=== PATIENT | male | born 1975 | race African-American/Black ===

== ENCOUNTER 2016-07-26 09:14 | Inpatient (IN) | payer OTHER ==
[~2016-07-26] VITALS: Ht 188 cm; Wt 89.8 kg
[~2016-07-26 09:14] MED LIST: ALDA25TA2 PO; FOLI1TAB2 PO; FOLIC ACID 1MG/0.2ML VIAL SC SCH; FURO20TA2 PO; HYDR25T PO; KEFL500C7 PO; LACT20EL PO; MAG400TA PO; NADO20TA PO; NICO21PAT TD; NICOTINE 7 MG/24 HR TRANSDERMAL TD SCH; OMEP20CA3 PO; PANT40TA2 PO; PERCOCET PO; PHYT5TA PO; POTA10CA PO; SUCR1SS PO; THIA100TA PO; THIAMINE HCL 200 MG/2 ML VIAL (J3411) IV SCH; Thiamine Hcl PO; VITA-122 PO; VITA10002 PO; VITA500T53 PO; VITMTA PO; XANA0.5T PO; XIFA550T PO
[2016-07-26] MEDS ORDERED: MORPHINE 4 MG/ML 1ML SYRINGE As Ordered ONE (09:29)
[2016-07-26] MEDS ORDERED: PANTOPRAZOLE 40MG INJ (PROTONIX) (C9113) As Ordered ONE ×3 (09:29→15:38)
[2016-07-26] MEDS ORDERED: ONDANSETRON 4MG/2ML VIAL (J2405) As Ordered ONE (09:30)
[2016-07-26 09:52] LABS: INR 1.79
[2016-07-26 09:54] LABS: BASO % 0.3 % (0.0-1.0); EOS # 0.3 K/mm3 (0.0-0.50); EOS % 5.4 % (0.0-3.0); LARGE UNSTAINED CELL # 0.1 K/mm3 (0.0-0.4); LARGE UNSTAINED CELL % 2.5 % (0.0-4.0); LYMPH # 1.8 K/mm3 (1.5-4.5); MEAN CORPUSCULAR HEMOGLOBIN 33.3 pg (27.0-33.0); MEAN CORPUSCULAR VOLUME 97.8 fl (80.0-96.0); MONO # 0.2 K/mm3 (0.0-0.8); MONO % 4.1 % (0.0-5.0); NEUTROPHILS # 2.9 K/mm3 (1.8-7.7); NEUTROPHILS % 53.7 % (36.0-66.0); RED CELL DISTRIBUTION WIDTH 15.5 % (11.5-14.5); WHITE BLOOD COUNT 5.4 K/mm3 (4.0-10.0)
[2016-07-26 09:55] LABS: PLATELET COUNT, AUTOMATED 41 k/mm3 (150-450)
[2016-07-26 10:29] LABS: ALBUMIN/GLOBULIN RATIO 0.64 (1.00-1.93); ALKALINE PHOSPHATASE 171 U/L (45-117); ALT/SGPT 63 U/L (12-78); ANION GAP 9 MEQ/L (8-16); AST/SGOT 137 U/L (15-37); BILIRUBIN,TOTAL 2.3 MG/DL (0.2-1.0); BLOOD UREA NITROGEN 7 MG/DL (7-18); CALCIUM LEVEL 8.3 MG/DL (8.5-10.1); CARBON DIOXIDE LEVEL 28 MEQ/L (21-32); CHLORIDE LEVEL 107 MEQ/L (98-107); CREATININE FOR GFR 0.72 MG/DL (0.70-1.30); GLOMERULAR FILTRATION RATE > 60.0 (>60); GLUCOSE, FASTING 101 MG/DL (70-105); POTASSIUM SERUM 3.9 MEQ/L (3.5-5.1); SODIUM LEVEL 144 MEQ/L (136-145); TOTAL PROTEIN 7.7 GM/DL (6.4-8.2)
[2016-07-26] MEDS ORDERED: ISOVUE-370 76% 100ML VIAL (Q9967) As Ordered ONE (10:48)
[2016-07-26] MEDS ORDERED: HYDROmorphone HCL 1 MG/ML SYRINGE (J1170) As Ordered ONE ×2 (11:05→13:57)
--- NOTE | 2016-07-26 11:29 | REP ---
Clinical: Generalized abdominal pain. Comparison: 06/18/2016. Technique: Axial contrast enhanced images from the lung bases to the pubic symphysis using 100 ml Isovue 370 intravenous contrast material with coronal and sagittal re-formations. Findings: Lung bases demonstrate minimal right basilar atelectasis. Continued stable evidence for cirrhosis and portal venous hypertension including hepatosplenomegaly, recanalized umbilical vein, diffuse varices and portosystemic shunting. Distended gallbladder with gallbladder wall thickening is also identified and unchanged compared to 06/18/2016 - likely a product of chronic cirrhosis. The enteric system is without obstruction or obvious acute inflammatory process. Normal appendix identified in the right lower quadrant. Scattered colonic diverticula noted without acute diverticulitis. Pelvis demonstrates normal bladder and age appropriate prostate/seminal vesicles. No free air or ascites. No significant adenopathy. Abdominal aorta without aneurysm or dissection. Surrounding musculoskeletal structures are intact without focal abnormality. Impression: 1. Continued evidence for cirrhosis and portal venous hypertension including hepatosplenomegaly. Distended gallbladder with gallbladder wall thickening is likely chronic and again related to cirrhosis. 2. No free fluid and no obvious new acute intra-abdominal or pelvic pathology appreciated. 3. Trace right basilar atelectasis. Signed by Gt Villar MD 07/26/2016 11:20 A
[2016-07-26] MEDS ORDERED: SPIR50TA2 PO (12:47)
[2016-07-26] MEDS ORDERED: VITA10002 PO (12:47)
[2016-07-26] MEDS ORDERED: LACT10SO29 PO (12:47)
[2016-07-26] MEDS ORDERED: POTA10CA PO (12:47)
[2016-07-26] MEDS ORDERED: MAGN400T5 PO (12:47)
[2016-07-26] MEDS ORDERED: FOLI1TAB2 PO (12:47)
[2016-07-26] MEDS ORDERED: LASI20TA PO (12:47)
[2016-07-26] MEDS ORDERED: THIA100T PO (12:47)
[2016-07-26] MEDS ORDERED: HYDR25T PO (12:47)
[2016-07-26] MEDS ORDERED: PROP1TAB29 PO (12:47)
[2016-07-26] MEDS ORDERED: PHYTONADIONE 10MG/ML INJECTION (J3430) SC ONE (13:00)
[2016-07-26] MEDS ORDERED: OCTREOTIDE ACETATE 50 MCG/ML VIAL (J2354) IV ONE (13:00)
[2016-07-26] MEDS ORDERED: PANTOPRAZOLE 40MG INJ (PROTONIX) (C9113) IV ONE (13:00)
[2016-07-26] MEDS ORDERED: PHYTONADIONE 10MG/ML INJECTION (J3430) As Ordered ONE (13:56)
[2016-07-26] MEDS ORDERED: FOLIC ACID 1MG/0.2ML VIAL As Ordered ONE (13:56)
[2016-07-26] MEDS ORDERED: CIPROFLOXACIN/D5W 400 MG/200 ML BAG (J0744) As Ordered ONE (13:57)
[2016-07-26] MEDS ORDERED: LACTULOSE 20 GM/30 ML SYRUP UD As Ordered ONE (13:57)
[2016-07-26] MEDS ORDERED: THIAMINE HCL 200 MG/2 ML VIAL (J3411) As Ordered ONE (13:57)
[2016-07-26] MEDS ORDERED: SUCRALFATE 1 GM TAB As Ordered ONE (13:57)
[2016-07-26 17:29] LABS: INR 1.9
[2016-07-26] MEDS ORDERED: LIDOCAINE 2% INJ 100 MG/5 ML SDV (FOR ANES.) As Ordered ONE (18:31)
[2016-07-26] MEDS ORDERED: PROPOFOL 500 MG/50 ML VIAL As Ordered ONE (18:31)
--- NOTE | 2016-07-26 18:44 | ROOR ---
Patient Name: Escobar Lara Procedure Date: 07/26/2016 5:45 PM Date of : 1975 Age: 41 Room: Main OR Gender: Male Note Status: Finalized Procedure: Upper GI endoscopy Indications: Hematemesis, Cirrhosis rule out esophageal varices, Hepatitis with suspected esophageal varices, Portal hypertension with suspected esophageal varices Providers: Dyllan JEAN MD Referring MD: Darcie Cai MD Requesting Provider: Medicines: Monitored Anesthesia Care Complications: No immediate complications. Procedure: Pre-Anesthesia Assessment: - The heart rate, respiratory rate, oxygen saturations, blood pressure, adequacy of pulmonary ventilation, and response to care were monitored throughout the procedure. The Endoscope was introduced through the mouth, and advanced to the second part of duodenum. The upper GI endoscopy was accomplished without difficulty. The patient tolerated the procedure well. Findings: Non-bleeding small (< 5 mm) varices were found in the lower third of the esophagus,. They were diminutive in size. No stigmata of recent bleeding were evident and no red ricky signs were present. Moderately severe esophagitis was found at the gastroesophageal junction. Candidiasis was found in the entire esophagus. Mild portal hypertensive gastropathy was found in the gastric body. This was biopsied with a cold forceps for histology. The examined duodenum was normal. Impression: - Non-bleeding small (< 5 mm) esophageal varices. (No/doubuious significance-no therapy necessary) - Moderately severe reflux esophagitis. - Monilial esophagitis. - Portal hypertensive gastropathy. Biopsied. - Stomach otherwise normal. (no gastric varices seen) - Normal examined duodenum. - (Fluid is clear-free of coffee grounds/blood) Recommendation: - Use Protonix (pantoprazole) 40 mg PO daily indefinitely. - Nystatin suspension 100,000 units PO QID for 10 days. - Clear liquid diet today. - Advance diet as tolerated - advance as tolerated to resume previous diet. Dyllan Jean MD Dyllan JEAN MD 07/26/2016 6:43:52 PM This report has been signed electronically. Number of Addenda: 0 Note Initiated On: 07/26/2016 5:45 PM Estimated Blood Loss: Estimated blood loss: none.
--- NOTE | 2016-07-26 18:49 | EDDOCDS ---
Nurse's Notes [facility] Name: Escobar Lara Age: 41 yrs Sex: Male : 1975 Arrival Date: 07/26/2016 Time: 09:14 Bed Admit Hold Private MD: Florence Cai J Diagnosis: Hematemesis-hx of grade I varices;Liver disease, unspecified Presentation: 07/26 09:18 Presenting complaint: Patient states: threw up 3 times and there was blood. also used srm the bathroom and there was blood infused with the diarrhea. my whole abdomen hurts. symptoms started at 530. Adult Sepsis Screening: The patient does not have new or worsening altered mentation. Systolic blood pressure is greater than 100. Patient has a qSOFA score of 0- Negative Sepsis Screen. Suicide/Homicide risk assessment- the patient denies having any suicidal and/or homicidal ideations and does not present with any other emotional, behavioral or mental health complaints. Status: Patient is not a telegraphic service dispatcher or dependent. Transition of care: patient was not received from another setting of care. 09:18 Acuity: LINSEY Level 3 [facility] 09:18 Method Of Arrival: Walkin/Carried/Asstd [facility] Triage Assessment: 09:21 General: Appears in no apparent distress, Behavior is appropriate for age, cooperative. srm Pain: Pain currently is 10 out of 10 on a pain scale. HIV screening NA for this visit Offered previously. Historical: - Allergies: no known allergies; - Home Meds: 1. Atarax Oral 25 mg daily 2. folic acid 1 mg Oral tab 1 tab once daily 3. lactulose 10 gram/15 mL (15 mL) Oral soln 15 mL once daily for (picked up med but has not started yet) 4. Lasix 20 mg Oral tab 1 tab once daily 5. magnesium oxide 400 mg Oral tab 800 mg daily 6. potassium chloride 10 mEq Oral cpER 1 cap once daily 7. vitamin b12 daily - PMHx: Cirrhosis; Hep C; esophageal varices; - PSHx: none; Endoscopy, Lower; Colonoscopy; - Social history: Smoking status: Patient uses tobacco products, current every day smoker. No barriers to communication noted, The patient speaks fluent Indonesian, Speaks appropriately for age. - Family history: Not pertinent. - : The pt / caregiver states he / she is not on anticoagulants. Home medication list is obtained from the patient. - Exposure Risk Screening:: None identified. Screenin:37 Screening information is obtained from the patient. Fall risk: No risks identified. ck1 Assistance ADL's: requires no assistance with activities of daily living. Abuse/DV Screen: The patient / caregiver reports he/she is: not in a situation that causes fear, pain or injury. Nutritional screening: No deficits noted. Advance Directives: There is an active DNR order but there is no copy available at this time. home support is adequate. Assessment: 09:38 General: Appears in no apparent distress, comfortable, Behavior is appropriate for age, ck1 cooperative. Pain: Location: abdomen Pain currently is 10 out of 10 on a pain scale. Quality of pain is described as stabbing. Neurological: Level of Consciousness is awake, alert, obeys commands, Oriented to person, place, time. Respiratory: Respiratory effort is unlabored, Respiratory pattern is regular, symmetrical. GI: Reports diarrhea, nausea, vomiting. Derm: Skin is pink, warm & dry. 09:42 GI: Abdomen is non- distended Bowel sounds present X 4 quads. Abd is soft X 4 quads Abd srm is tender to palpation X 4 quads. 10:59 General: Appears in no apparent distress, comfortable, Behavior is appropriate for age, ck1 cooperative. Pain: Location: abdomen Pain currently is 10 out of 10 on a pain scale. Neurological: No deficits noted. GI: Denies nausea, vomiting. Derm: Skin is pink, warm & dry. Musculoskeletal: Circulation, motion, and sensation intact Range of motion intact in all extremities. 12:00 General: Appears in no apparent distress, comfortable, Behavior is appropriate for age, ck1 cooperative. Pain: Noted to be resting quietly on stretcher. Neurological: Level of Consciousness is awake, alert, obeys commands, Oriented to person, place, time. Respiratory: Respiratory effort is unlabored, Respiratory pattern is regular, symmetrical. GI: Denies nausea, vomiting. Derm: Skin is pink, warm & dry. 12:50 Reassessment: Patient appears in no apparent distress at this time. resting quietly on ck1 stretcher. Denies NVD. Awaiting admission process. Call light in reach, will continue to monitor patient. 13:50 General: Appears in no apparent distress, comfortable, Behavior is appropriate for age, ck1 cooperative. Pain: Location: abdomen Pain currently is 9 out of 10 on a pain scale. Neurological: Level of Consciousness is awake, alert, obeys commands, Oriented to person, place, time. Respiratory: No deficits noted. GI: Denies nausea, vomiting. Derm: Skin is pink, warm & dry. Musculoskeletal: Circulation, motion, and sensation intact Range of motion intact in all extremities. 14:50 Reassessment: Patient appears in no apparent distress at this time. ck1 15:50 General: Appears in no apparent distress, comfortable, Behavior is appropriate for age, ck1 cooperative. Pain: Location: abdomen Pain currently is 9 out of 10 on a pain scale. Neurological: Level of Consciousness is awake, alert, obeys commands, Oriented to person, place, time. Respiratory: Respiratory effort is unlabored, Respiratory pattern is regular, symmetrical. GI: Denies nausea, vomiting. Derm: Skin is pink, warm & dry. 16:40 General: Patient is resting quietly on stretcher listening to music via cell phone, no ck1 acute distress noted at this time. Requesting drink/food. States pain 10/10. patient informed of NPO status. Verbalized understanding. 17:25 General: Appears in no apparent distress, comfortable, Behavior is appropriate for age, ead cooperative. Neurological: Level of Consciousness is awake, alert, obeys commands, Oriented to person, place, time. Respiratory: Respiratory effort is even, unlabored. GI: Denies nausea, vomiting. Derm: Skin is pink, warm & dry. 17:32 General: pt to OR. Pt to be returned to room 18 in ED post scope.. ead Vital Signs: 09:17 BP 161 / 85; Pulse 101; Resp 18; Temp 98.1(O); Pulse Ox 97% ; Weight 89.81 kg; Height 6 cmb ft. 2 in. (187.96 cm); Pain 10/10; 10:12 BP 144 / 93; Pulse 91; Resp 18; Pulse Ox 95% on R/A; Pain 9/10; srm 11:38 BP 137 / 79 RA Sitting (auto/reg); Pulse 86; Resp 16; Pulse Ox 96% on R/A; Pain 9/10; jrd 11:40 Pain 9/10; ck1 14:58 BP 134 / 78 RA Supine (auto/reg); Pulse 86; Resp 16; Pulse Ox 94% on R/A; Pain 9/10; jrd 16:32 BP 137 / 71 RA Sitting (auto/reg); Pulse 81; Resp 16; Temp 97.7; Pulse Ox 93% on R/A; jrd Pain 10/10; 17:01 BP 136 / 85 (auto/); ead 17:01 Pulse 62 MON; Resp 16; Temp 99.6(TE); Pulse Ox 93% on R/A; ead 09:17 Body Mass Index 25.42 (89.81 kg, 187.96 cm) cmb Vitals: 09:17 Log In Time: July 26, 2016 at 09:14. cmb ED Course: 09:16 Patient visited by Betsy Oliveira. cmb 09:16 Florence Cai is Private Physician. cmb 09:16 Patient moved to Waiting cmb 09:17 Patient moved to Pre RCE cmb 09:19 Triage Initiated srm 09:22 Deandre Bonilla PA-C is PHCP. cc10 09:22 Yulisa Bonner MD is Attending Physician. cc10 09:22 Patient visited by Deandre Bonilla PA-C. cc10 09:22 Patient visited by Deandre Bonilla PA-C. cc10 09:22 Patient moved to Triage 2 srm 09:27 Patient moved to I2 / M2 ck1 09:37 The patient / caregiver is instructed regarding the plan of care and ED course. ck1 09:37 Inserted saline lock: 20 gauge in left forearm and blood collected. The patient ck1 tolerated the procedure well. 09:38 Basic Metabolic Profile Sent. ck1 09:38 CBC with Diff Sent. ck1 09:38 Lipase Sent. ck1 09:38 Liver Profile Sent. ck1 09:38 Partial Thromboplastin Time Sent. ck1 09:38 Prothrombin Time Profile\E\INR Sent. ck1 09:38 Type & Screen Sent. ck1 09:42 Patient visited by Steffi Alford RN. srm 09:51 Patient visited by Steffi Alford RN. srm 09:59 [facility] Payment Agreement was scanned into [employer] and attached to record. mm15 10:13 Patient visited by Steffi Alford RN. srm 10:51 Patient visited by Marge Camcaho,DANIEL. ck1 10:[address] ck1 10:59 Patient moved to I2 / M2 ck1 11:03 Urinalysis Sent. ck1 11:08 Patient visited by Marge Camacho,DANIEL. ck1 11:39 Patient visited by Lacho Da Silva PCA. jrd 12:14 Darcie Cai is Hospitalizing Provider. cc10 12:19 CT ABD & PELVIS: IV Contrast Only Returned. EDMS 12:[address] loo. srm 13:47 Inserted saline lock: 20 gauge in right hand The patient tolerated the procedure well. ck1 14:58 Patient visited by Lacho Da Silva PCA. jrd 15:08 T-Sheet-- Draft Copy was scanned into [employer] and attached to record. gb 16:33 Patient visited by Lacho Da Silva PCA. jrd 16:41 Ashlee Abbott RN is Primary Nurse. ck1 16:41 Patient moved to 18 ck1 17:08 Admission Orders was scanned into [employer] and attached to record. lbd 17:16 Patient moved to Admit Hold mcp 17:24 No procedures done that require assistance. ead Administered Medications: 09:36 Drug: NS 0.9% 1000 ml [sodium chloride 0.9 % intravenous solution] Route: IV; Rate: srm bolus; Site: left forearm; 09:36 Drug: Ondansetron 4 mg [ondansetron HCl 2 mg/mL intravenous solution (2 mL)] Route: srm IVP; Site: left forearm; 09:37 Drug: pantoprazole 40 mg [pantoprazole 40 mg intravenous solution] Route: IV; Rate: srm bolus; Site: left forearm; 09:39 Drug: morphine 4 mg [morphine 4 mg/mL intravenous cartridge (1 mL)] Route: IVP; Site: srm left forearm; 10:13 Follow up: pt sleeping on stretcher-= arouses easily. states pain 9.5/10 PA aware srm 11:08 Drug: Dilaudid - HYDROmorphone 0.5 mg [hydromorphone 1 mg/mL injection syringe (0.5 ck1 mL)] Route: IVP; Site: left forearm; 11:40 Follow up: Pain 9/10 Adult; Response: Confirmed pt not driving.; No Adverse Reaction; ck1 Pain is decreased Intake: Order Results: Lab Order: Basic Metabolic Profile; SPEC'M 07/26/16 09:35 Test: GLUCOSE, FASTING; Value: 101; Range: 70-105; Units: MG/DL; Status: F Test: BLOOD UREA NITROGEN; Value: 7; Range: 7-18; Units: MG/DL; Status: F Test: CREATININE FOR GFR; Value: 0.72; Range: 0.70-1.30; Units: MG/DL; Status: F Test: GLOMERULAR FILTRATION RATE; Value: > 60.0; Range: >60; Status: F Test: SODIUM LEVEL; Value: 144; Range: 136-145; Units: MEQ/L; Status: F Test: POTASSIUM SERUM; Value: 3.9; Range: 3.5-5.1; Units: MEQ/L; Status: F Test: CHLORIDE LEVEL; Value: 107; Range: 98-107; Units: MEQ/L; Status: F Test: CARBON DIOXIDE LEVEL; Value: 28; Range: 21-32; Units: MEQ/L; Status: F Test: ANION GAP; Value: 9; Range: 8-16; Units: MEQ/L; Status: F Test: CALCIUM LEVEL; Value: 8.3; Range: 8.5-10.1; Abnormal: Below low normal; Units: MG/DL; Status: F Test Note: ; Units are mL/min/1.73 m2 Chronic Kidney Disease Staging per NKF: Stage I & II GFR >=60 Normal to Mildly Decreased Stage III GFR 30-59 Moderately Decreased Stage IV GFR 15-29 Severely Decreased Stage V GFR <15 Very Little GFR Left ESRD GFR <15 on WELL LOGGER Lab Order: CBC with Diff; SPEC'07/26/16 09:35 Test: WHITE BLOOD COUNT; Value: 5.4; Range: 4.0-10.0; Units: K/mm3; Status: F Test: RED BLOOD COUNT; Value: 4.12; Range: 4.30-6.10; Abnormal: Below low normal; Units: M/mm3; Status: F Test: HEMOGLOBIN; Value: 13.7; Range: 14.0-18.0; Abnormal: Below low normal; Units: g/dl; Status: F Test: HEMATOCRIT; Value: 40.3; Range: 42.0-52.0; Abnormal: Below low normal; Units: %; Status: F Test: MEAN CORPUSCULAR VOLUME; Value: 97.8; Range: 80.0-96.0; Abnormal: Above high normal; Units: fl; Status: F Test: MEAN CORPUSCULAR HEMOGLOBIN; Value: 33.3; Range: 27.0-33.0; Abnormal: Above high normal; Units: pg; Status: F Test: MEAN CORPUSCULAR HGB CONC; Value: 34.0; Range: 32.0-36.5; Units: g/dl; Status: F Test: RED CELL DISTRIBUTION WIDTH; Value: 15.5; Range: 11.5-14.5; Abnormal: Above high normal; Units: %; Status: F Test: PLATELET COUNT, AUTOMATED; Value: 41; Range: 150-450; Abnormal: Below low normal; Units: k/mm3; Status: F Test: NEUTROPHILS %; Value: 53.7; Range: 36.0-66.0; Units: %; Status: F Test: LYMPH %; Value: 34.0; Range: 24.0-44.0; Units: %; Status: F Test: MONO %; Value: 4.1; Range: 0.0-5.0; Units: %; Status: F Test: EOS %; Value: 5.4; Range: 0.0-3.0; Abnormal: Above high normal; Units: %; Status: F Test: BASO %; Value: 0.3; Range: 0.0-1.0; Units: %; Status: F Test: LARGE UNSTAINED CELL %; Value: 2.5; Range: 0.0-4.0; Units: %; Status: F Test: NEUTROPHILS #; Value: 2.9; Range: 1.8-7.7; Units: K/mm3; Status: F Test: LYMPH #; Value: 1.8; Range: 1.5-4.5; Units: K/mm3; Status: F Test: MONO #; Value: 0.2; Range: 0.0-0.8; Units: K/mm3; Status: F Test: EOS #; Value: 0.3; Range: 0.0-0.50; Units: K/mm3; Status: F Test: BASO #; Value: 0.0; Range: 0.0-0.2; Units: K/mm3; Status: F Test: LARGE UNSTAINED CELL #; Value: 0.1; Range: 0.0-0.4; Units: K/mm3; Status: F Test Note: ; Results are consistent with prvious results. Lab Order: Lipase; SPEC'07/26/16 09:35 Test: LIPASE; Value: 717; Range: 73-393; Abnormal: Above high normal; Units: U/L; Status: F Lab Order: Liver Profile; SPEC'07/26/16 09:35 Test: AST/SGOT; Value: 137; Range: 15-37; Abnormal: Above high normal; Units: U/L; Status: F Test: ALT/SGPT; Value: 63; Range: 12-78; Units: U/L; Status: F Test: ALKALINE PHOSPHATASE; Value: 171; Range: 45-117; Abnormal: Above high normal; Units: U/L; Status: F Test: BILIRUBIN,TOTAL; Value: 2.3; Range: 0.2-1.0; Abnormal: Above high normal; Units: MG/DL; Status: F Test: BILIRUBIN,DIRECT; Value: 1.0; Range: 0.0-0.2; Abnormal: Above high normal; Units: MG/DL; Status: F Test: TOTAL PROTEIN; Value: 7.7; Range: 6.4-8.2; Units: GM/DL; Status: F Test: ALBUMIN; Value: 3.0; Range: 3.2-5.2; Abnormal: Below low normal; Units: GM/DL; Status: F Test: ALBUMIN/GLOBULIN RATIO; Value: 0.64; Range: 1.00-1.93; Abnormal: Below low normal; Status: F Lab Order: Partial Thromboplastin Time; SPEC'07/26/16 09:35 Test: PARTIAL THROMBOPLASTIN TIME; Value: 35.1; Range: 26.6-37.1; Units: SECONDS; Status: F Lab Order: Prothrombin Time Profile\E\INR; SPEC'07/26/16 09:35 Test: PROTHROMBIN TIME; Value: 20.9; Range: 12.3-14.5; Abnormal: Above high normal; Units: SECONDS; Status: F Test: INR; Value: 1.79; Status: F Test Note: ; THERAPUTIC HUMAN INR VALUES INDICATIONS NORMAL RANGES PROPHYLAXIS/TREATMENT OF: VENOUS THROMBOSIS 2.0-3.0 PULMONARY EMBOLISM 2.0-3.0 PREVENTION OF SYSTEMIC EMBOLISM FROM: TISSUE HEART VALVES 2.0-3.0 ACUTE MYOCARDIAL INFARCTION 2.0-3.0 VALVULAR HEART DISEASE 2.0-3.0 ATRIAL FIBRILLATION 2.0-3.0 MECHANICAL VALVES(HIGH RISK) 2.5-3.5 RECURRENT MYOCARDIAL INFARCTION 2.5-3.5 Lab Order: Type & Screen; SPEC' 07/26/16 09:35 Test: BLOOD TYPE; Value: O NEG; Status: F Test: AB SCREEN (INDIRECT ZEKE)GEL; Value: NEGATIVE; Status: F Lab Order: Urinalysis; [facility] 07/26/16 11:01 Test: APPEARANCE, URINE; Value: CLEAR; Range: CLEAR; Status: F Test: COLOR, URINE; Value: YELLOW; Range: YELLOW; Status: F Test: PH,URINE; Value: 6.0; Range: 5.0-9.0; Units: UNITS; Status: F Test: SPECIFIC GRAVITY URINE AUTO; Value: 1.019; Range: 1.002-1.035; Status: F Test: PROTEIN, URINE AUTO; Value: NEGATIVE; Range: NEGATIVE; Units: mg/dL; Status: F Test: GLUCOSE, URINE (UA) AUTO; Value: NEGATIVE; Range: NEGATIVE; Units: mg/dL; Status: F Test: KETONE, URINE AUTO; Value: NEGATIVE; Range: NEGATIVE; Units: mg/dL; Status: F Test: UROBILINOGEN, URINE AUTO; Value: 2.0; Range: 0.0-2.0; Abnormal: Above high normal; Units: mg/dL; Status: F Test: BILIRUBIN, URINE AUTO; Value: NEGATIVE; Range: NEGATIVE; Status: F Test: NITRITE, URINE AUTO; Value: NEGATIVE; Range: NEGATIVE; Status: F Test: LEUKOCYTE ESTERASE, URINE AUTO; Value: NEGATIVE; Range: NEGATIVE; Status: F Test: BLOOD, URINE BLOOD; Value: 1+; Range: NEGATIVE; Abnormal: Above high normal; Status: F Test: WBC, URINE AUTO; Value: 0; Range: 0-3; Units: /HPF; Status: F Test: RBC, URINE AUTO; Value: 4; Range: 0-3; Abnormal: Above high normal; Units: /HPF; Status: F Test: BACTERIA, URINE AUTO; Value: NEGATIVE; Range: NEGATIVE; Status: F Test: SQUAMOUS EPITHELIAL CELL UR AU; Value: 0; Range: 0-6; Units: /HPF; Status: F Test: MUCUS, URINE; Value: SMALL; Range: NEGATIVE; Status: F Test: HYALINE CAST, URINE AUTO; Value: 0; Range: 0-1; Units: /LPF; Status: F Lab Order: AMMONIA; [facility] 07/26/16 17:15 Test: AMMONIA; Value: 45; Range: <32; Abnormal: Above high normal; Units: uMOL/L; Status: F Lab Order: HEMOGLOBIN; [facility] 07/26/16 17:15 Test: HEMOGLOBIN; Value: 12.9; Range: 14.0-18.0; Abnormal: Below low normal; Units: g/dl; Status: F Lab Order: PT & APTT; [facility] 07/26/16 17:15 Test: PROTHROMBIN TIME; Value: 21.9; Range: 12.3-14.5; Abnormal: Above high normal; Units: SECONDS; Status: F Test: INR; Value: 1.90; Status: F Test: PARTIAL THROMBOPLASTIN TIME; Value: 36.6; Range: 26.6-37.1; Units: SECONDS; Status: F Test Note: ; THERAPUTIC HUMAN INR VALUES INDICATIONS NORMAL RANGES PROPHYLAXIS/TREATMENT OF: VENOUS THROMBOSIS 2.0-3.0 PULMONARY EMBOLISM 2.0-3.0 PREVENTION OF SYSTEMIC EMBOLISM FROM: TISSUE HEART VALVES 2.0-3.0 ACUTE MYOCARDIAL INFARCTION 2.0-3.0 VALVULAR HEART DISEASE 2.0-3.0 ATRIAL FIBRILLATION 2.0-3.0 MECHANICAL VALVES(HIGH RISK) 2.5-3.5 RECURRENT MYOCARDIAL INFARCTION 2.5-3.5 Radiology Order: CT ABD & PELVIS: IV Contrast Only Test: CT ABD & PELVIS: IV Contrast Only REASON FOR EXAMINATION: Abdomen Pain; Clinical: Generalized abdominal pain.; ; Comparison: 06/18/2016.; ; Technique: Axial contrast enhanced images from the lung bases to the pubic; symphysis using 100 ml Isovue 370 intravenous contrast material with coronal and; sagittal re-formations.; ; Findings:; Lung bases demonstrate minimal right basilar atelectasis.; ; Continued stable evidence for cirrhosis and portal venous hypertension including; hepatosplenomegaly, recanalized umbilical vein, diffuse varices and portosystemic; shunting. Distended gallbladder with gallbladder wall thickening is also; identified and unchanged compared to 06/18/2016 - likely a product of chronic; cirrhosis. The enteric system is without obstruction or obvious acute; inflammatory process. Normal appendix identified in the right lower quadrant.; Scattered colonic diverticula noted without acute diverticulitis. Pelvis; demonstrates normal bladder and age appropriate prostate/seminal vesicles. No; free air or ascites. No significant adenopathy. Abdominal aorta without; aneurysm or dissection. Surrounding musculoskeletal structures are intact; without focal abnormality.; ; Impression:; 1. Continued evidence for cirrhosis and portal venous hypertension including; hepatosplenomegaly. Distended gallbladder with gallbladder wall thickening is; likely chronic and again related to cirrhosis.; 2. No free fluid and no obvious new acute intra-abdominal or pelvic pathology; appreciated.; 3. Trace right basilar atelectasis.; ; ; Signed by; tG Villar MD 07/26/2016 11:20 A; Outcome: 10:59 CT Study completed. ck1 12:15 Decision to Hospitalize by Provider. cc10 17:27 Discharge Assessment: Patient awake and alert. obeys commands, Oriented to person, ead place and time. patient administered narcotics - yes. Patient was admitted to the hospital or transferred to another facility. The following High Risk Discharge criteria are identified: None. Admitted to OR accompanied by nurse, accompanied by tech, via stretcher, on monitor, with chart. Condition: stable. Property :Personal belongings accompany Pt. 18:47 Patient left the ED. [facility] Signatures: Dispatcher [employer] EDMS Breanna López, Tray Checker Unit lbd Steffi Alford RN Leny Adams RN RN [facility] Taryn Naidu, Ghulam Reg cori Camacho,MargeRN RN ck1 Betsy Oliveira Marlynn mm15 Ashlee Abbott RN RN ead Deandre Bonilla, PA-C PA-C cc10 Avinash, Lacho, LEAD INFRASTRUCTURE ARCHITECT LEAD INFRASTRUCTURE ARCHITECT jrd Corrections: (The following items were deleted from the chart) 17:27 17:01 Pulse 62bpm; Monitor; ead ead MTDD
--- NOTE | 2016-07-26 18:49 | EDDOCDS ---
Physician Documentation [facility] Name: Escobar Lara Age: 41 yrs Sex: Male : 1975 Arrival Date: 07/26/2016 Time: 09:14 Bed Admit Hold Private MD: Florence Cai J Disposition: 07/26/16 12:15 Hospitalization ordered by Darcie Cai for Observation. Preliminary diagnosis are Hematemesis - hx of grade I varices, Liver disease, unspecified. - Bed requested for Admit. - Status is Observation. mcp - Condition is Stable. - Problem is new. - Symptoms have improved. Historical: - Allergies: no known allergies; - Home Meds: 1. Atarax Oral 25 mg daily 2. folic acid 1 mg Oral tab 1 tab once daily 3. lactulose 10 gram/15 mL (15 mL) Oral soln 15 mL once daily for (picked up med but has not started yet) 4. Lasix 20 mg Oral tab 1 tab once daily 5. magnesium oxide 400 mg Oral tab 800 mg daily 6. potassium chloride 10 mEq Oral cpER 1 cap once daily 7. vitamin b12 daily - PMHx: Cirrhosis; Hep C; esophageal varices; - PSHx: none; Endoscopy, Lower; Colonoscopy; - Social history: Smoking status: Patient uses tobacco products, current every day smoker. No barriers to communication noted, The patient speaks fluent Senegalese, Speaks appropriately for age. - Family history: Not pertinent. - : The pt / caregiver states he / she is not on anticoagulants. Home medication list is obtained from the patient. - Exposure Risk Screening:: None identified. Vital Signs: 07/26 09:17 BP 161 / 85; Pulse 101; Resp 18; Temp 98.1(O); Pulse Ox 97% ; Weight 89.81 kg / 198 cmb lbs; Height 6 ft. 2 in. (187.96 cm); Pain 10/10; 10:12 BP 144 / 93; Pulse 91; Resp 18; Pulse Ox 95% on R/A; Pain 9/10; srm 11:38 BP 137 / 79 RA Sitting (auto/reg); Pulse 86; Resp 16; Pulse Ox 96% on R/A; Pain 9/10; jrd 11:40 Pain 9/10; ck1 14:58 BP 134 / 78 RA Supine (auto/reg); Pulse 86; Resp 16; Pulse Ox 94% on R/A; Pain 9/10; jrd 16:32 BP 137 / 71 RA Sitting (auto/reg); Pulse 81; Resp 16; Temp 97.7; Pulse Ox 93% on R/A; jrd Pain 10/10; 17:01 BP 136 / 85 (auto/); ead 17:01 Pulse 62 MON; Resp 16; Temp 99.6(TE); Pulse Ox 93% on R/A; ead 09:17 Body Mass Index 25.42 (89.81 kg, 187.96 cm) cmb MDM: 09:25 NS 0.9% 1000 ml IV at bolus once ordered. cc10 09:25 Ondansetron 4 mg IVP once ordered. cc10 09:25 IV Saline Lock ordered. cc10 09:25 Undress patient appropriately for examination ordered. cc10 09:26 CT ABD & PELVIS: IV Contrast Only Ordered. EDMS 09:26 Basic Metabolic Profile Ordered. EDMS 09:26 CBC with Diff Ordered. EDMS 09:26 Lipase Ordered. EDMS 09:26 Liver Profile Ordered. EDMS 09:26 Partial Thromboplastin Time Ordered. EDMS 09:26 Prothrombin Time Profile\E\INR Ordered. EDMS 09:26 Urinalysis Ordered. EDMS 09:27 Type & Screen Ordered. EDMS 09:27 NOTHING BY MOUTH+DIET ordered. EDMS 09:27 morphine 4 mg IVP once ordered. cc10 09:28 pantoprazole 40 mg IV at bolus once ordered. cc10 09:53 Financial registration complete. mm15 09:59 [facility] Payment Agreement was scanned into UTIL[employer] and attached to record. mm15 11:02 Basic Metabolic Profile Reviewed. cc10 11:02 CBC with Diff Reviewed. cc10 11:02 Lipase Reviewed. cc10 11:02 Liver Profile Reviewed. cc10 11:02 Prothrombin Time Profile\E\INR Reviewed. cc10 11:02 Partial Thromboplastin Time Reviewed. cc10 11:02 Type & Screen Reviewed. cc10 11:04 Dilaudid - HYDROmorphone 0.5 mg IVP once ordered. cc10 12:06 Urinalysis Reviewed. cc10 12:13 BED REQUEST+ADM ordered. EDMS 12:14 NOTHING BY MOUTH+DIET ordered. EDMS 12:16 AMMONIA Ordered. EDMS 12:29 Admission / Observation Status ordered. EDMS 12:29 NPO DIET ordered. EDMS 12:30 HEMOGLOBIN Ordered. EDMS 12:30 HEMOGLOBIN Ordered. EDMS 12:30 PT & APTT Ordered. EDMS 15:08 T-Sheet-- Draft Copy was scanned into [employer] and attached to record. gb 17:08 Admission Orders was scanned into [employer] and attached to record. lbd 18:42 PATHOLOGY REQUEST FOR SERVICE Ordered. EDMS Administered Medications: 09:36 Drug: NS 0.9% 1000 ml [sodium chloride 0.9 % intravenous solution] Route: IV; Rate: srm bolus; Site: left forearm; 09:36 Drug: Ondansetron 4 mg [ondansetron HCl 2 mg/mL intravenous solution (2 mL)] Route: srm IVP; Site: left forearm; 09:37 Drug: pantoprazole 40 mg [pantoprazole 40 mg intravenous solution] Route: IV; Rate: srm bolus; Site: left forearm; 09:39 Drug: morphine 4 mg [morphine 4 mg/mL intravenous cartridge (1 mL)] Route: IVP; Site: srm left forearm; 10:13 Follow up: pt sleeping on stretcher-= arouses easily. states pain 9.5/10 PA aware srm 11:08 Drug: Dilaudid - HYDROmorphone 0.5 mg [hydromorphone 1 mg/mL injection syringe (0.5 ck1 mL)] Route: IVP; Site: left forearm; 11:40 Follow up: Pain 9/10 Adult; Response: Confirmed pt not driving.; No Adverse Reaction; ck1 Pain is decreased Signatures: Dispatcher [employer] EDMS Breanna López, Business Support Specialist Unit lbd Steffi Alford RN RN srm Leny Guallpa RN RN mcp Barnhardt, Gloria, Reg Reg gb Marge Camacho RN RN ck1 Rama Asher mm15 Deandre Bonilla PAFloresitaC PA-C cc10 The chart was reviewed and I authenticate all verbal orders and agree with the evaluation and treatment provided.Corrections: (The following items were deleted from the chart) 12:32 12:29 TYPE & SCREEN ordered. EDAK EDMS Attachments: 09:59 [facility] Payment Agreement mm15 15:08 T-Sheet-- Draft Copy gb 17:08 Admission Orders lbd MTDD
[2016-07-26] MEDS ORDERED: fentaNYL 100 MCG/2 ML INJECTION (J3010) IV PRN (19:00)
[2016-07-26] MEDS ORDERED: ONDANSETRON 4MG/2ML VIAL (J2405) IV PRN (19:00)
[2016-07-26] MEDS ORDERED: LR 1,000 ML IV SCH (19:00)
[2016-07-26] MEDS ORDERED: fentaNYL 100 MCG/2 ML INJECTION (J3010) As Ordered ONE (19:15)
[2016-07-26] MEDS ORDERED: PANTOPRAZOLE 40MG TAB (PROTONIX) PO ONE (19:30)
[2016-07-26 21:00] VITALS: BP 147/96
[2016-07-26] MEDS: NADOLOL 20MG TABLET PO SCH (21:05)
[2016-07-26] MEDS: rifAXIMin 550 MG TAB (XIFAXAN) PO SCH ×2 (21:05→23:14)
[2016-07-26] MEDS: LACTULOSE 20 GM/30 ML SYRUP UD PO SCH ×2 (21:05→23:14)
[2016-07-26] MEDS: SUCRALFATE 1 GM TAB PO SCH ×3 (21:06→23:14)
[2016-07-26] MEDS: CIPROFLOXACIN 400 MG in APPROPRIATE DILUENT 1 EA IV SCH (21:10)
[2016-07-26] MEDS: NYSTATIN 500,000 U/5 ML SUSP UDC SS SCH (21:18)
[2016-07-26] MEDS: MORPHINE 30 MG TAB **MSIR PO PRN (21:18)
[2016-07-26] MEDS: OCTREOTIDE ACETATE 1,200 MCG in NS 238.8 ML IV SCH (21:20)
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
[2016-07-26] MEDS: TRIAMCINOLONE ACET 0.1% CREAM 80 GM TOP SCH ×2 (21:53→23:15)
[2016-07-26] MEDS: MORPHINE 4 MG/ML 1ML SYRINGE IV PRN (23:17)
[2016-07-26] MEDS ORDERED: OXAZEPAM 10 MG CAP PO PRN (23:45)
[2016-07-27] MEDS: CIPROFLOXACIN 400 MG in APPROPRIATE DILUENT 1 EA IV SCH ×2 (01:47→13:32)
[2016-07-27 02:00] VITALS: BP 168/89
[2016-07-27] MEDS: MORPHINE 30 MG TAB **MSIR PO PRN (02:35)
[2016-07-27] MEDS: PANTOPRAZOLE SODIUM 40 MG in D5W MINI-BAG PLUS 50 ML IV SCH (03:16)
[2016-07-27] MEDS: MORPHINE 4 MG/ML 1ML SYRINGE IV PRN (04:32)
[2016-07-27] MEDS: SUCRALFATE 1 GM TAB PO SCH ×4 (05:55→23:51)
[2016-07-27 06:00] VITALS: BP 170/96
[2016-07-27 06:58] LABS: MEAN CORPUSCULAR HEMOGLOBIN 32.7 pg (27.0-33.0); MEAN CORPUSCULAR HGB CONC 32.7 g/dl (32.0-36.5); MEAN CORPUSCULAR VOLUME 99.8 fl (80.0-96.0); RED CELL DISTRIBUTION WIDTH 16.3 % (11.5-14.5); WHITE BLOOD COUNT 3.8 K/mm3 (4.0-10.0)
[2016-07-27 07:14] LABS: ALBUMIN/GLOBULIN RATIO 0.61 (1.00-1.93); ALKALINE PHOSPHATASE 124 U/L (45-117); ALT/SGPT 62 U/L (12-78); ANION GAP 6 MEQ/L (8-16); AST/SGOT 140 U/L (15-37); BILIRUBIN,TOTAL 4.4 MG/DL (0.2-1.0); BLOOD UREA NITROGEN 7 MG/DL (7-18); CALCIUM LEVEL 7.9 MG/DL (8.5-10.1); CARBON DIOXIDE LEVEL 31 MEQ/L (21-32); CHLORIDE LEVEL 99 MEQ/L (98-107); CREATININE FOR GFR 0.97 MG/DL (0.70-1.30); GLOMERULAR FILTRATION RATE > 60.0 (>60); GLUCOSE, FASTING 118 MG/DL (70-105); POTASSIUM SERUM 3.7 MEQ/L (3.5-5.1); SODIUM LEVEL 136 MEQ/L (136-145); TOTAL PROTEIN 7.9 GM/DL (6.4-8.2)
[2016-07-27] MEDS: LACTULOSE 20 GM/30 ML SYRUP UD PO SCH ×3 (08:52→21:52)
[2016-07-27] MEDS: PANTOPRAZOLE 40MG TAB (PROTONIX) PO SCH (08:53)
[2016-07-27] MEDS: NYSTATIN 500,000 U/5 ML SUSP UDC SS SCH ×2 (08:53→12:17)
[2016-07-27] MEDS: TRIAMCINOLONE ACET 0.1% CREAM 80 GM TOP SCH ×3 (08:53→21:52)
[2016-07-27] MEDS: rifAXIMin 550 MG TAB (XIFAXAN) PO SCH ×2 (08:53→21:51)
[2016-07-27] MEDS: THIAMINE 100 MG TAB PO SCH (08:53)
[2016-07-27] MEDS: FOLIC ACID 1 MG TAB PO SCH (08:53)
[2016-07-27] MEDS: NADOLOL 20MG TABLET PO SCH (08:57)
[2016-07-27 10:00] VITALS: BP 168/88
[2016-07-27] MEDS: hydrOXYzine 50 MG TAB PO PRN (10:44)
[2016-07-27] MEDS: OCTREOTIDE ACETATE 1,200 MCG in NS 238.8 ML IV SCH (12:37)
--- NOTE | 2016-07-27 12:58 | IPNPDOC ---
Assessment/Plan Date Seen The patient was seen on 07/27/16. Plan / VTE VTE Prophylaxis Ordered?: Yes Plan Diet: Continue Current Activity: Encourage Ambulation Plan Text Pt is a 41 y/o male admitted for Acute GI bleeding. 1. Acute GI bleed- Pt has a history of alcoholic liver disease and received EGD per Dr. Jean last night. Small, non-bleeding varices were found. Pt is currently not bleeding outwardly but H/H is still trending down. Continue current dosage of octreotide, replenish fluids, monitoring H/H Q6, and will transfuse if necessary. 2. Generalized pruritus and skin lesions - Likely caused by increased bilirubin secondary to alcoholic liver disease. Continue pt on kenalog cream, hydroxyzine PO, and vaseline for symptomatic management. 3. Abdominal pain - Pt's LLQ and midline abdominal pain is likely secondary to his alcoholic cirrhosis and chronic hep C. Will give pt 0.5mg IM Morphine PRN Q4 for pain management 4. Liver disease - secondary to EtOH abuse and chronic hep C. pt is currently in rehabilitation for substance abuse and will be encouraged to continue staying abstinent from etoh. Because pt is a known etoh abuser, pt will be continued on DT prophylaxis. Pt to see Dr. Cai for further management for his hep c. 5. Thrombocytopenia and other coagulopathy - Pt reports easy bruising, which is likely secondary to chronic liver disease. Will give platelet transfusion and FFP if necessary 6. History of polysubstance abuse - pt has used cocaine, marijuana, and heroine in the past. Pt is currently not using any illicit substances. pt is already in a rehabilitation program for substance abuse. Pt will get nicotine patches for duration of stay at hospital. 7. Esophageal Thrush - Esophageal candidiasis was found on EGD yesterday PM by Dr. Jean. D/c nystatin and switch to course of fluconazole 400 mg loading dose then 200 mg QD for 14 days. Disposition Clear liquid diet can be advanced per GI request. Pt to continue getting out of bed and walking as tolerated. Subjective Review of Systems CC/HPI The patient is a 41-year-old male admitted with a reason for visit of acute GI bleeding. Pt was seen at bedside today. Pt reports no events overnight, denies vomiting and reports having a small pink bowel movement but denies bright red blood. Pt has c/o of 10/10 abdominal pain in LLQ radiating to his groin and back. Pt states pain is sharp and constant. Pt also has c/o nausea, generalized pruritus, and rashes. Pt also complaining of blurry vision that began in January 2016, h/a associated with the blurry vision, fatigue, frequent bruising, and SOB. However, pt reports that those symptoms have been present and unchanged since his last admission. Pt denies chest pain, dizziness, dysuria, fever, chills. Pt reports 15 lbs weight loss since last admission. Overall, pt has been tolerating diet well and ambulating well. General: Reports: Fatigue, Normal Appetite, Other Symptoms, Denies: Chills, Malaise, Night Sweats Constitutional: Reports: Weight Loss (15 lbs since last hospital admission) Eyes: Reports: Vision change (blurry vision since january) ENT: Reports: Head Aches Skin: Reports: Itching, Lesions, Rash Cardiovascular: Reports: Edema, Orthopnea, Other Symptoms, Paroxysmal Noc. Dyspnea, Denies: Chest Pain, Lt Headedness, Palpitations Gastrointestinal: Reports: Abdominal Pain, Nausea Genitourinary: Reports: Hematuria, Incontinence, Other Symptoms, Retention, Denies: Dysuria, Frequency Hematologic: Reports: Bruising Neurological: Reports: Confusion Objective Physical Examination General Exam: Positive: Alert, Cooperative, No Acute Distress Eye Exam: Positive: Conjunctiva & lids normal, EOMI, Negative: Sclera icteric Chest Exam: Positive: Clear to auscultation, Normal air movement, Negative: Diminished, Rales, Rhonchi, Wheezing Heart Exam: Positive: Normal S1, Normal S2, Rate Normal, Regular Rhythm, Negative: Gallops, Murmurs, Rubs Abdomen Exam: Positive: Hepatospenomegaly, Normal bowel sounds, Tenderness (to palpation over LLQ and midline under umbilicus), Negative: Mass Skin Exam: Positive: Lesion (Multiple erythematus ringed lesions over lower extremities), Nl turgor and temperature, Pruritus, Rash Psych Exam: Positive: Mental status NL, Oriented x 3 Vital Signs/I&O Vital Signs Date Time Temp Pulse Resp B/P Pulse Ox O2 Delivery O2 Flow Rate FiO2 07/27/16 08:57 74 148/84 07/27/16 06:00 97.1 18 93 Room Air I&O- Last 24 Hours up to 6 AM 07/27/16 06:00 Intake Total 2000 ml Output Total 0 ml Balance 2000 ml Laboratory Data Labs 24H Laboratory Tests 2 07/26/16 09:35: Activated Partial Thromboplast Time 35.1, Aspartate Amino Transf (AST/SGOT) 137H , Alanine Aminotransferase (ALT/SGPT) 63, Alkaline Phosphatase 171H, Total Bilirubin 2.3H, Direct Bilirubin 1.0H, Albumin 3.0L, Albumin/Globulin Ratio 0.64L, Anion Gap 9, White Blood Count 5.4, Red Blood Count 4.12L, Hemoglobin 13.7L, Hematocrit 40.3L, Mean Corpuscular Volume 97.8H, Mean Corpuscular Hemoglobin 33.3H, Mean Corpuscular Hemoglobin Concent 34.0, Red Cell Distribution Width 15.5H, Platelet Count 41L, Neutrophils (%) (Auto) 53.7, Lymphocytes (%) (Auto) 34.0, Monocytes (%) (Auto) 4.1, Eosinophils (%) (Auto) 5.4H, Basophils (%) (Auto) 0.3, Neutrophils # (Auto) 2.9, Lymphocytes # (Auto) 1.8, Monocytes # (Auto) 0.2, Eosinophils # (Auto) 0.3, Basophils # (Auto) 0.0, Calcium Level 8.3L, Glomerular Filtration Rate > 60.0, Large Unclassified Cells # 0.1, Large Unclassified Cells % 2.5, Lipase 717H, Prothromb Time International Ratio 1.79, Prothrombin Time 20.9H, Total Protein 7.7 07/26/16 11:01: Urine Amorphous Sediment , Urine Appearance CLEAR, Urine Color YELLOW, Urine pH 6.0, Urine Specific [place] 1.019, Urine Protein NEGATIVE, Urine Glucose (UA) NEGATIVE, Urine Ketones NEGATIVE, Urine Urobilinogen 2.0H, Urine Bilirubin NEGATIVE, Urine Leukocyte Esterase NEGATIVE, Urine Bacteria (Auto) NEGATIVE, Urine Blood 1+H, Urine Calcium Carbonate Cryst(Auto) , Urine Calcium Oxalate Cryst (Auto) , Urine Calcium Phosphate Debbie (Auto) , Urine Cellular Casts , Urine Cystine Crystals , Urine Granular Casts (Auto) , Urine Hyaline Casts (Auto ) 0, Urine Leucine Crystals , Urine Mucus (Auto) SMALL, Urine Nitrite NEGATIVE, Urine Oval Fat Bodies (Auto) , Urine RBC (Auto) 4H, Urine Renal Epithelial Cells , Urine Sperm (Auto) , Urine Squamous Epithelial Cells 0, Urine Transitional Epithelial Cells , Urine Trichomonas (Auto) , Urine Triple Phosphate Cryst (Auto) , Urine Tyrosine Crystals , Urine Uric Acid Crystals ( Auto) , Urine WBC (Auto) 0, Urine Waxy Casts (Auto) , Urine Yeast-Like Cells ( Auto) 07/26/16 17:15: Activated Partial Thromboplast Time 36.6, Prothromb Time International Ratio 1.90, Prothrombin Time 21.9H, Ammonia 45H 07/27/16 06:36: Aspartate Amino Transf (AST/SGOT) 140H, Alanine Aminotransferase (ALT/SGPT) 62, Alkaline Phosphatase 124H, Total Bilirubin 4.4#H, Albumin 3.0L, Albumin/ Globulin Ratio 0.61L, Anion Gap 6L, Calcium Level 7.9L, Glomerular Filtration Rate > 60.0, Total Protein 7.9, Blood Urea Nitrogen 7, Creatinine 0.97, Sodium Level 136#, Potassium Level 3.7, Chloride Level 99, Carbon Dioxide Level 31 07/27/16 07:57: Ammonia 66H CBC/BMP Laboratory Tests 07/26/16 09:35 Red Blood Count 4.12 L, Mean Corpuscular Volume 97.8 H, Mean Corpuscular Hemoglobin 33.3 H, Mean Corpuscular Hemoglobin Concent 34.0, Red Cell Distribution Width 15.5 H, Neutrophils (%) (Auto) 53.7, Lymphocytes (%) (Auto) 34.0, Monocytes (%) (Auto) 4.1, Eosinophils (%) (Auto) 5.4 H, Basophils (%) ( Auto) 0.3, Neutrophils # (Auto) 2.9, Lymphocytes # (Auto) 1.8, Monocytes # (Auto ) 0.2, Eosinophils # (Auto) 0.3, Basophils # (Auto) 0.0 07/26/16 17:15 07/26/16 21:10 07/27/16 06:36 Red Blood Count 3.67 L, Mean Corpuscular Volume 99.8 H, Mean Corpuscular Hemoglobin 32.7, Mean Corpuscular Hemoglobin Concent 32.7, Red Cell Distribution Width 16.3 H, Calcium Level 7.9 L, Aspartate Amino Transf (AST/SGOT ) 140 H, Alanine Aminotransferase (ALT/SGPT) 62, Alkaline Phosphatase 124 H, Total Bilirubin 4.4 #H, Total Protein 7.9, Albumin 3.0 L LUPIS LOOMIS DO Jul 27, 2016 10:17
[2016-07-27] MEDS: MORPHINE 2 MG/ML 1ML SYRINGE IV PRN ×3 (13:33→22:24)
[2016-07-27 14:00] VITALS: BP 140/82
[2016-07-27] MEDS ORDERED: FLUCONAZOLE 100 MG TAB PO ONE (14:00)
[2016-07-27 18:00] VITALS: BP 148/89
[2016-07-27] MEDS ORDERED: NICOTINE 21MG/24HR 1 EA TRANSDERMAL TD SCH (21:00)
[2016-07-27 22:00] VITALS: BP 146/87
[2016-07-28] MEDS: CIPROFLOXACIN 400 MG in APPROPRIATE DILUENT 1 EA IV SCH ×2 (01:52→14:36)
[2016-07-28 02:00] VITALS: BP 126/79
[2016-07-28] MEDS: MORPHINE 2 MG/ML 1ML SYRINGE IV PRN ×2 (03:06→08:36)
[2016-07-28] MEDS: SUCRALFATE 1 GM TAB PO SCH ×2 (05:27→11:26)
[2016-07-28] MEDS: LACTULOSE 20 GM/30 ML SYRUP UD PO SCH ×2 (05:27→14:35)
[2016-07-28 06:00] VITALS: BP 131/77
[2016-07-28 06:23] LABS: MEAN CORPUSCULAR HEMOGLOBIN 33.6 pg (27.0-33.0); MEAN CORPUSCULAR VOLUME 98.8 fl (80.0-96.0); RED CELL DISTRIBUTION WIDTH 16.2 % (11.5-14.5); WHITE BLOOD COUNT 2.8 K/mm3 (4.0-10.0)
[2016-07-28 06:31] LABS: ALBUMIN 2.6 GM/DL (3.2-5.2); ALBUMIN/GLOBULIN RATIO 0.67 (1.00-1.93); ALKALINE PHOSPHATASE 98 U/L (45-117); ALT/SGPT 65 U/L (12-78); ANION GAP 4 MEQ/L (8-16); AST/SGOT 159 U/L (15-37); BILIRUBIN,TOTAL 5.1 MG/DL (0.2-1.0); BLOOD UREA NITROGEN 5 MG/DL (7-18); CALCIUM LEVEL 8.1 MG/DL (8.5-10.1); CARBON DIOXIDE LEVEL 34 MEQ/L (21-32); CHLORIDE LEVEL 104 MEQ/L (98-107); CREATININE FOR GFR 0.88 MG/DL (0.70-1.30); GLOMERULAR FILTRATION RATE > 60.0 (>60); GLUCOSE, FASTING 114 MG/DL (70-105); SODIUM LEVEL 142 MEQ/L (136-145); TOTAL PROTEIN 6.5 GM/DL (6.4-8.2)
[2016-07-28 08:35] VITALS: BP 154/85
[2016-07-28] MEDS: NADOLOL 20MG TABLET PO SCH (08:35)
[2016-07-28] MEDS: hydrOXYzine 50 MG TAB PO PRN (08:35)
[2016-07-28] MEDS: THIAMINE 100 MG TAB PO SCH (08:35)
[2016-07-28] MEDS: rifAXIMin 550 MG TAB (XIFAXAN) PO SCH (08:35)
[2016-07-28] MEDS: PANTOPRAZOLE 40MG TAB (PROTONIX) PO SCH (08:35)
[2016-07-28] MEDS: FOLIC ACID 1 MG TAB PO SCH (08:35)
[2016-07-28] MEDS: TRIAMCINOLONE ACET 0.1% CREAM 80 GM TOP SCH (08:37)
[2016-07-28] MEDS ORDERED: FLUCONAZOLE 100 MG TAB PO SCH (09:00)
[2016-07-28 10:00] VITALS: BP 138/70
[2016-07-28] MEDS ORDERED: PANT40TA2 PO (10:48)
[2016-07-28] MEDS ORDERED: NADO20TA PO (10:48)
[2016-07-28] MEDS ORDERED: FLUC10TA PO ×2 (10:48→11:24)
[2016-07-28] MEDS ORDERED: SUCR1TA PO (10:48)
[2016-07-28 10:58] LABS: BILIRUBIN,DIRECT 1.5 MG/DL (0.0-0.2)
[2016-07-28 10:59] LABS: HIV SCRN NEGATIVE (NEGATIVE); HIV SCRN1 NEGATIVE (NEGATIVE)
[2016-07-28 11:02] LABS: CONTROL LINE INT CTR LINE PRESENT
[2016-07-28] MEDS: OCTREOTIDE ACETATE 1,200 MCG in NS 238.8 ML IV SCH (11:26)
--- NOTE | 2016-07-28 15:06 | DS.PDOC ---
Discharge Summary General Date of Admission Jul 26, 2016 at 12:24 Date of Discharge Jul 28, 2016 Primary Care Physician: NEMO BLACK DO Attending Physician: YENIFER CUNHA MD Specialist/Consultants Involve Dr. Dyllan Jean MD, Dr. Florence Cai MD Discharge Summary COMPLICATIONS/CHIEF COMPLAINT: Acute Upper Gastrointestinal Bleeding DISCHARGE DIAGNOSES: 1. Upper Gastrointestinal Bleeding - resolved 2. Generalized pruritus 3. LLQ Abdominal Pain 4. Esophageal Candidiasis 5. Alcoholic Liver Disease 6. Chronic Hepatitis C 7. Thrombocytopenia 8. Pancytopenia 9. Alcohol Abuse HISTORY OF PRESENT ILLNESS/ HOSPITAL COURSE: Patient is a 41 y/o male with a history of Alcoholic cirrhosis and chronic liver disease presenting to the ED for acute hematemesis. Pt reports waking up that morning and finding his mouth and nose covered in bright red blood. Pt then felt severe 10/10 abdominal pain primarily in his LLQ and proceeded to have several bloody bowel movements. Pt reports being recently sober (from alcohol) for 60 days but due to severe pain had relapsed a few days prior and drank 2 24ounce beers. In the ED, pt reported feeling lightheaded, confused, weak, fatigued, and nauseous. Pt denied SOB, chest pain/pressure, fever, and chills. Pt also had a c/o generalized pruritus and had multiple erythematous ringed lesions on his lower extremities. At the time of admission the pt's MELD score was calculated to be 16. An upper endoscopy was performed by Dr. Jean and he found small (<0.5mm) nonbleeding varices as well as esophageal candidiasis. Pt was given IV fluids, Morphine, octreotide, rifaximin, DT prophylaxis, nadolol, pantoprazole, lactulose, sucralfate, oral nystatin, hydroxyzine, and Kenalog cream in first night. The following day, pt was examined at bedside still c/o severe constat 10/10 abdominal pain but denied any hematemesis or hematochezia. Pt was given a morphine PRN for pain management. Pt was placed on a clear liquid diet s/p EGD to be advanced as tolerated. Pt still had c/o generalized pruritus but reports that the cream was helping and the itching was improved. Pt was switched from oral nystatin to fluconazole for systemic management of his esophageal candidiasis On today, the day of discharge, Mr. Lara was seen at bedside and he reports feeling significantly better. Pt reports feeling less fatigued than yesterday. Pt denies any source of active bleeding, nausea, vomiting, diarrhea, dizziness, fever, chills, SOB, chest pain, change in vision, urinary frequency/urgency, burning or irritation during urination, or lesions in the genital region. Pt is tolerating diet well. T. bili was slightly increased today, we consulted GI and they suspect that pt's hyperbilirubinemia is transient secondary to alcoholic cirrhosis and chronic Hep C along with recent GI bleeding. Their recommendation is pt is stable and ready for discharge today. H/H has been stable with slight drop due to dilution since admission. Overall the pt appears to be significantly improved from admission and is stable and ready for discharge at this time. PHYSICAL EXAMINATION ON DISCHARGE: VITAL SIGNS: Please see below. GENERAL: pt appears comfortable, in NAD, WNWD, AOx3 HEENT: EOMI, no JVD, conjunctiva clear, nonicteric NECK: no thyromegaly, no palpable cervical lymphadenopathy, CARDIOVASCULAR EXAMINATION: S1S2 no murmurs, gallops or rubs RESPIRATORY EXAMINATION: Clear to auscultation with no wheezes, rales, rhonchi ABDOMINAL EXAMINATION: BS+ throughout, soft, mildly distended abdomen, hepatosplemomegaly, mildly tender to palpation in LLQ and midline underneath umbilicus, No masses, no notable ascitic fluid. EXTREMITIES: No LE edema, SKIN: Multiple erythematous ringed lesions over lower extremities b/l. Multiple petechiae over back and telangiectasias. DISPOSITION: Discharge to home ITEMS TO FOLLOWUP ON OUTPATIENT: 1. HIV and Syphilis test pending DISCHARGE PLAN AND INSTRUCTIONS: 1. Please followup with your primary care physician Dr. Bolton in 7-10 days 2. Please followup with your Addiction Services counselor [facility] at your previously scheduled appointment. 3. Please followup with Dr. Cai for further management of Hepatitis C. 4. Please continue to take your course of fluconazole for an additional 13 days. Vital Signs/I&Os Vital Signs Date Time Temp Pulse Resp B/P Pulse Ox O2 Delivery O2 Flow Rate FiO2 07/28/16 06:00 98.1 66 17 131/77 94 Room Air I&O- Last 24 Hours up to 6 AM 07/28/16 06:00 Intake Total 3040 ml Balance 3040 ml Laboratory Data Labs 24H Laboratory Tests 2 07/28/16 05:21: Blood Urea Nitrogen 5L, Creatinine 0.88, Sodium Level 142, Potassium Level 4.0, Chloride Level 104, Carbon Dioxide Level 34H, Calcium Level 8.1L, Aspartate Amino Transf (AST/SGOT) 159H, Alanine Aminotransferase (ALT/SGPT) 65, Alkaline Phosphatase 98, Total Bilirubin 5.1H, Total Protein 6.5, Albumin 2.6L, Albumin/ Globulin Ratio 0.67L, Anion Gap 4L, Glomerular Filtration Rate > 60.0 CBC/BMP Laboratory Tests 07/27/16 12:48 07/27/16 18:18 07/28/16 00:08 07/28/16 05:21 Calcium Level 8.1 L, Aspartate Amino Transf (AST/SGOT) 159 H, Alanine Aminotransferase (ALT/SGPT) 65, Alkaline Phosphatase 98, Total Bilirubin 5.1 H, Total Protein 6.5, Albumin 2.6 L, Red Blood Count 3.30 L, Mean Corpuscular Volume 98.8 H, Mean Corpuscular Hemoglobin 33.6 H, Mean Corpuscular Hemoglobin Concent 34.0, Red Cell Distribution Width 16.2 H Medications Scheduled Cyanocobalamin (Vitamin B-12) 1,000 Mcg Tab 1,000 MCG PO DAILY Fluconazole (Diflucan) 100 Mg Tab 200 MG PO DAILY Folic Acid (Folic Acid) 1 Mg Tab 1 MG PO DAILY Furosemide (Lasix) 20 Mg Tab 20 MG PO DAILY Lactulose (Lactulose) 10 Gm/15 Ml Grace 15 ML PO DAILY Magnesium Oxide (Magnesium Oxide 400) 400 Mg Tab 800 MG PO DAILY Nadolol (Nadolol) 20 Mg Tab 20 MG PO DAILY Pantoprazole Sodium (Pantoprazole Sodium) 40 Mg Tab 40 MG PO DAILY Potassium Chloride (Klor-Con M10) 10 Meq Tabcr 10 MEQ PO DAILY Spironolactone (Spironolactone) 50 Mg Tab 50 MG PO DAILY Sucralfate (Carafate) 1 Gm Tab 1 GM PO Q6H Thiamine HCl (Thiamine HCl) 100 Mg Tab 100 MG PO DAILY Scheduled PRN Hydroxyzine HCl (Hydroxyzine HCl) 25 Mg Tab 25 MG PO TID PRN PRN ITCHING Allergies Coded Allergies: No Known Allergies (Unverified , 12/31/15) LUPIS LOOMIS DO Jul 28, 2016 08:58
--- NOTE | 2016-07-28 19:49 | EDDOCDS ---
Nurse's Notes [facility] Name: Escobar Lara Age: 41 yrs Sex: Male : 1975 Arrival Date: 07/26/2016 Time: 09:14 Bed Admit Hold Private MD: Florence Cai J Diagnosis: Hematemesis-hx of grade I varices;Liver disease, unspecified Presentation: 07/26 09:18 Presenting complaint: Patient states: threw up 3 times and there was blood. also used srm the bathroom and there was blood infused with the diarrhea. my whole abdomen hurts. symptoms started at 530. Adult Sepsis Screening: The patient does not have new or worsening altered mentation. Systolic blood pressure is greater than 100. Patient has a qSOFA score of 0- Negative Sepsis Screen. Suicide/Homicide risk assessment- the patient denies having any suicidal and/or homicidal ideations and does not present with any other emotional, behavioral or mental health complaints. Status: Patient is not a breeder service technician or dependent. Transition of care: patient was not received from another setting of care. 09:18 Acuity: LINSEY Level 3 [facility] 09:18 Method Of Arrival: Walkin/Carried/[facility]std [facility] Triage Assessment: 09:21 General: Appears in no apparent distress, Behavior is appropriate for age, cooperative. srm Pain: Pain currently is 10 out of 10 on a pain scale. HIV screening NA for this visit Offered previously. Historical: - Allergies: no known allergies; - Home Meds: 1. Atarax Oral 25 mg daily 2. folic acid 1 mg Oral tab 1 tab once daily 3. lactulose 10 gram/15 mL (15 mL) Oral soln 15 mL once daily for (picked up med but has not started yet) 4. Lasix 20 mg Oral tab 1 tab once daily 5. magnesium oxide 400 mg Oral tab 800 mg daily 6. potassium chloride 10 mEq Oral cpER 1 cap once daily 7. vitamin b12 daily - PMHx: Cirrhosis; Hep C; esophageal varices; - PSHx: none; Endoscopy, Lower; Colonoscopy; - Social history: Smoking status: Patient uses tobacco products, current every day smoker. No barriers to communication noted, The patient speaks fluent Icelandic, Speaks appropriately for age. - Family history: Not pertinent. - : The pt / caregiver states he / she is not on anticoagulants. Home medication list is obtained from the patient. - Exposure Risk Screening:: None identified. Screenin:37 Screening information is obtained from the patient. Fall risk: No risks identified. ck1 Assistance ADL's: requires no assistance with activities of daily living. Abuse/DV Screen: The patient / caregiver reports he/she is: not in a situation that causes fear, pain or injury. Nutritional screening: No deficits noted. Advance Directives: There is an active DNR order but there is no copy available at this time. home support is adequate. Assessment: 09:38 General: Appears in no apparent distress, comfortable, Behavior is appropriate for age, ck1 cooperative. Pain: Location: abdomen Pain currently is 10 out of 10 on a pain scale. Quality of pain is described as stabbing. Neurological: Level of Consciousness is awake, alert, obeys commands, Oriented to person, place, time. Respiratory: Respiratory effort is unlabored, Respiratory pattern is regular, symmetrical. GI: Reports diarrhea, nausea, vomiting. Derm: Skin is pink, warm & dry. 09:42 GI: Abdomen is non- distended Bowel sounds present X 4 quads. Abd is soft X 4 quads Abd srm is tender to palpation X 4 quads. 10:59 General: Appears in no apparent distress, comfortable, Behavior is appropriate for age, ck1 cooperative. Pain: Location: abdomen Pain currently is 10 out of 10 on a pain scale. Neurological: No deficits noted. GI: Denies nausea, vomiting. Derm: Skin is pink, warm & dry. Musculoskeletal: Circulation, motion, and sensation intact Range of motion intact in all extremities. 12:00 General: Appears in no apparent distress, comfortable, Behavior is appropriate for age, ck1 cooperative. Pain: Noted to be resting quietly on stretcher. Neurological: Level of Consciousness is awake, alert, obeys commands, Oriented to person, place, time. Respiratory: Respiratory effort is unlabored, Respiratory pattern is regular, symmetrical. GI: Denies nausea, vomiting. Derm: Skin is pink, warm & dry. 12:50 Reassessment: Patient appears in no apparent distress at this time. resting quietly on ck1 stretcher. Denies NVD. Awaiting admission process. Call light in reach, will continue to monitor patient. 13:50 General: Appears in no apparent distress, comfortable, Behavior is appropriate for age, ck1 cooperative. Pain: Location: abdomen Pain currently is 9 out of 10 on a pain scale. Neurological: Level of Consciousness is awake, alert, obeys commands, Oriented to person, place, time. Respiratory: No deficits noted. GI: Denies nausea, vomiting. Derm: Skin is pink, warm & dry. Musculoskeletal: Circulation, motion, and sensation intact Range of motion intact in all extremities. 14:50 Reassessment: Patient appears in no apparent distress at this time. ck1 15:50 General: Appears in no apparent distress, comfortable, Behavior is appropriate for age, ck1 cooperative. Pain: Location: abdomen Pain currently is 9 out of 10 on a pain scale. Neurological: Level of Consciousness is awake, alert, obeys commands, Oriented to person, place, time. Respiratory: Respiratory effort is unlabored, Respiratory pattern is regular, symmetrical. GI: Denies nausea, vomiting. Derm: Skin is pink, warm & dry. 16:40 General: Patient is resting quietly on stretcher listening to music via cell phone, no ck1 acute distress noted at this time. Requesting drink/food. States pain 10/10. patient informed of NPO status. Verbalized understanding. 17:25 General: Appears in no apparent distress, comfortable, Behavior is appropriate for age, ead cooperative. Neurological: Level of Consciousness is awake, alert, obeys commands, Oriented to person, place, time. Respiratory: Respiratory effort is even, unlabored. GI: Denies nausea, vomiting. Derm: Skin is pink, warm & dry. 17:32 General: pt to OR. Pt to be returned to room 18 in ED post scope.. ead Vital Signs: 09:17 BP 161 / 85; Pulse 101; Resp 18; Temp 98.1(O); Pulse Ox 97% ; Weight 89.81 kg; Height 6 cmb ft. 2 in. (187.96 cm); Pain 10/10; 10:12 BP 144 / 93; Pulse 91; Resp 18; Pulse Ox 95% on R/A; Pain 9/10; srm 11:38 BP 137 / 79 RA Sitting (auto/reg); Pulse 86; Resp 16; Pulse Ox 96% on R/A; Pain 9/10; jrd 11:40 Pain 9/10; ck1 14:58 BP 134 / 78 RA Supine (auto/reg); Pulse 86; Resp 16; Pulse Ox 94% on R/A; Pain 9/10; jrd 16:32 BP 137 / 71 RA Sitting (auto/reg); Pulse 81; Resp 16; Temp 97.7; Pulse Ox 93% on R/A; jrd Pain 10/10; 17:01 BP 136 / 85 (auto/); ead 17:01 Pulse 62 MON; Resp 16; Temp 99.6(TE); Pulse Ox 93% on R/A; ead 09:17 Body Mass Index 25.42 (89.81 kg, 187.96 cm) cmb Vitals: 09:17 Log In Time: July 26, 2016 at 09:14. cmb ED Course: 09:16 Patient visited by Betsy Oliveira. cmb 09:16 Florence Cai is Private Physician. cmb 09:16 Patient moved to Waiting cmb 09:17 Patient moved to Pre RCE cmb 09:19 Triage Initiated srm 09:22 Deandre Bonilla PA-C is PHCP. cc10 09:22 Yulisa Bonner MD is Attending Physician. cc10 09:22 Patient visited by Deandre Bonilla PA-C. cc10 09:22 Patient visited by Deandre Bonilla PA-C. cc10 09:22 Patient moved to Triage 2 srm 09:27 Patient moved to I2 / M2 ck1 09:37 The patient / caregiver is instructed regarding the plan of care and ED course. ck1 09:37 Inserted saline lock: 20 gauge in left forearm and blood collected. The patient ck1 tolerated the procedure well. 09:38 Basic Metabolic Profile Sent. ck1 09:38 CBC with Diff Sent. ck1 09:38 Lipase Sent. ck1 09:38 Liver Profile Sent. ck1 09:38 Partial Thromboplastin Time Sent. ck1 09:38 Prothrombin Time Profile\E\INR Sent. ck1 09:38 Type & Screen Sent. ck1 09:42 Patient visited by Steffi Alford RN. srm 09:51 Patient visited by Steffi Alford RN. srm 09:59 [facility] Payment Agreement was scanned into [employer] and attached to record. mm15 10:13 Patient visited by Steffi Alford RN. srm 10:51 Patient visited by Marge Camacho,DANIEL. ck1 10:[address] ck1 10:59 Patient moved to I2 / M2 ck1 11:03 Urinalysis Sent. ck1 11:08 Patient visited by Marge Camacho,DANIEL. ck1 11:39 Patient visited by Lacho Da Silva PCA. jrd 12:14 Darcie Cai is Hospitalizing Provider. cc10 12:19 CT ABD & PELVIS: IV Contrast Only Returned. EDMS 12:[address] loo. srm 13:47 Inserted saline lock: 20 gauge in right hand The patient tolerated the procedure well. ck1 14:58 Patient visited by Lacho Da Silva PCA. jrd 15:08 T-Sheet-- Draft Copy was scanned into [employer] and attached to record. gb 16:33 Patient visited by Lacho Da Silva PCA. jrd 16:41 Ashlee Abbott RN is Primary Nurse. ck1 16:41 Patient moved to 18 ck1 17:08 Admission Orders was scanned into [employer] and attached to record. lbd 17:16 Patient moved to Admit Hold mcp 17:24 No procedures done that require assistance. ead 01/12 10:13 Consents was scanned into [employer] and attached to record. gb Administered Medications: 07/26 09:36 Drug: NS 0.9% 1000 ml [sodium chloride 0.9 % intravenous solution] Route: IV; Rate: srm bolus; Site: left forearm; 09:36 Drug: Ondansetron 4 mg [ondansetron HCl 2 mg/mL intravenous solution (2 mL)] Route: srm IVP; Site: left forearm; 09:37 Drug: pantoprazole 40 mg [pantoprazole 40 mg intravenous solution] Route: IV; Rate: srm bolus; Site: left forearm; 09:39 Drug: morphine 4 mg [morphine 4 mg/mL intravenous cartridge (1 mL)] Route: IVP; Site: srm left forearm; 10:13 Follow up: pt sleeping on stretcher-= arouses easily. states pain 9.5/10 PA aware srm 11:08 Drug: Dilaudid - HYDROmorphone 0.5 mg [hydromorphone 1 mg/mL injection syringe (0.5 ck1 mL)] Route: IVP; Site: left forearm; 11:40 Follow up: Pain 03/25 Adult; Response: Confirmed pt not driving.; No Adverse Reaction; ck1 Pain is decreased Attachments: 07/27 10:13 Consents gb Intake: Order Results: Lab Order: Basic Metabolic Profile; SPEC'07/26/16 09:35 Test: GLUCOSE, FASTING; Value: 101; Range: 70-105; Units: MG/DL; Status: F Test: BLOOD UREA NITROGEN; Value: 7; Range: 7-18; Units: MG/DL; Status: F Test: CREATININE FOR GFR; Value: 0.72; Range: 0.70-1.30; Units: MG/DL; Status: F Test: GLOMERULAR FILTRATION RATE; Value: > 60.0; Range: >60; Status: F Test: SODIUM LEVEL; Value: 144; Range: 136-145; Units: MEQ/L; Status: F Test: POTASSIUM SERUM; Value: 3.9; Range: 3.5-5.1; Units: MEQ/L; Status: F Test: CHLORIDE LEVEL; Value: 107; Range: 98-107; Units: MEQ/L; Status: F Test: CARBON DIOXIDE LEVEL; Value: 28; Range: 21-32; Units: MEQ/L; Status: F Test: ANION GAP; Value: 9; Range: 8-16; Units: MEQ/L; Status: F Test: CALCIUM LEVEL; Value: 8.3; Range: 8.5-10.1; Abnormal: Below low normal; Units: MG/DL; Status: F Test Note: ; Units are mL/min/1.73 m2 Chronic Kidney Disease Staging per NKF: Stage I & II GFR >=60 Normal to Mildly Decreased Stage III GFR 30-59 Moderately Decreased Stage IV GFR 15-29 Severely Decreased Stage V GFR <15 Very Little GFR Left ESRD GFR <15 on MARBLEIZING MACHINE TENDER Lab Order: CBC with Diff; SPEC07/26/16 09:35 Test: WHITE BLOOD COUNT; Value: 5.4; Range: 4.0-10.0; Units: K/mm3; Status: F Test: RED BLOOD COUNT; Value: 4.12; Range: 4.30-6.10; Abnormal: Below low normal; Units: M/mm3; Status: F Test: HEMOGLOBIN; Value: 13.7; Range: 14.0-18.0; Abnormal: Below low normal; Units: g/dl; Status: F Test: HEMATOCRIT; Value: 40.3; Range: 42.0-52.0; Abnormal: Below low normal; Units: %; Status: F Test: MEAN CORPUSCULAR VOLUME; Value: 97.8; Range: 80.0-96.0; Abnormal: Above high normal; Units: fl; Status: F Test: MEAN CORPUSCULAR HEMOGLOBIN; Value: 33.3; Range: 27.0-33.0; Abnormal: Above high normal; Units: pg; Status: F Test: MEAN CORPUSCULAR HGB CONC; Value: 34.0; Range: 32.0-36.5; Units: g/dl; Status: F Test: RED CELL DISTRIBUTION WIDTH; Value: 15.5; Range: 11.5-14.5; Abnormal: Above high normal; Units: %; Status: F Test: PLATELET COUNT, AUTOMATED; Value: 41; Range: 150-450; Abnormal: Below low normal; Units: k/mm3; Status: F Test: NEUTROPHILS %; Value: 53.7; Range: 36.0-66.0; Units: %; Status: F Test: LYMPH %; Value: 34.0; Range: 24.0-44.0; Units: %; Status: F Test: MONO %; Value: 4.1; Range: 0.0-5.0; Units: %; Status: F Test: EOS %; Value: 5.4; Range: 0.0-3.0; Abnormal: Above high normal; Units: %; Status: F Test: BASO %; Value: 0.3; Range: 0.0-1.0; Units: %; Status: F Test: LARGE UNSTAINED CELL %; Value: 2.5; Range: 0.0-4.0; Units: %; Status: F Test: NEUTROPHILS #; Value: 2.9; Range: 1.8-7.7; Units: K/mm3; Status: F Test: LYMPH #; Value: 1.8; Range: 1.5-4.5; Units: K/mm3; Status: F Test: MONO #; Value: 0.2; Range: 0.0-0.8; Units: K/mm3; Status: F Test: EOS #; Value: 0.3; Range: 0.0-0.50; Units: K/mm3; Status: F Test: BASO #; Value: 0.0; Range: 0.0-0.2; Units: K/mm3; Status: F Test: LARGE UNSTAINED CELL #; Value: 0.1; Range: 0.0-0.4; Units: K/mm3; Status: F Test Note: ; Results are consistent with prvious results. Lab Order: Lipase; SPECM 07/26/16 09:35 Test: LIPASE; Value: 717; Range: 73-393; Abnormal: Above high normal; Units: U/L; Status: F Lab Order: Liver Profile; SPEC07/26/16 09:35 Test: AST/SGOT; Value: 137; Range: 15-37; Abnormal: Above high normal; Units: U/L; Status: F Test: ALT/SGPT; Value: 63; Range: 12-78; Units: U/L; Status: F Test: ALKALINE PHOSPHATASE; Value: 171; Range: 45-117; Abnormal: Above high normal; Units: U/L; Status: F Test: BILIRUBIN,TOTAL; Value: 2.3; Range: 0.2-1.0; Abnormal: Above high normal; Units: MG/DL; Status: F Test: BILIRUBIN,DIRECT; Value: 1.0; Range: 0.0-0.2; Abnormal: Above high normal; Units: MG/DL; Status: F Test: TOTAL PROTEIN; Value: 7.7; Range: 6.4-8.2; Units: GM/DL; Status: F Test: ALBUMIN; Value: 3.0; Range: 3.2-5.2; Abnormal: Below low normal; Units: GM/DL; Status: F Test: ALBUMIN/GLOBULIN RATIO; Value: 0.64; Range: 1.00-1.93; Abnormal: Below low normal; Status: F Lab Order: Partial Thromboplastin Time; SPEC'07/26/16 09:35 Test: PARTIAL THROMBOPLASTIN TIME; Value: 35.1; Range: 26.6-37.1; Units: SECONDS; Status: F Lab Order: Prothrombin Time Profile\E\INR; SPEC07/26/16 09:35 Test: PROTHROMBIN TIME; Value: 20.9; Range: 12.3-14.5; Abnormal: Above high normal; Units: SECONDS; Status: F Test: INR; Value: 1.79; Status: F Test Note: ; THERAPUTIC HUMAN INR VALUES INDICATIONS NORMAL RANGES PROPHYLAXIS/TREATMENT OF: VENOUS THROMBOSIS 2.0-3.0 PULMONARY EMBOLISM 2.0-3.0 PREVENTION OF SYSTEMIC EMBOLISM FROM: TISSUE HEART VALVES 2.0-3.0 ACUTE MYOCARDIAL INFARCTION 2.0-3.0 VALVULAR HEART DISEASE 2.0-3.0 ATRIAL FIBRILLATION 2.0-3.0 MECHANICAL VALVES(HIGH RISK) 2.5-3.5 RECURRENT MYOCARDIAL INFARCTION 2.5-3.5 Lab Order: Type & Screen; [facility] 07/26/16 09:35 Test: BLOOD TYPE; Value: O NEG; Status: F Test: AB SCREEN (INDIRECT ZEKE)GEL; Value: NEGATIVE; Status: F Lab Order: Urinalysis; [facility] 07/26/16 11:01 Test: APPEARANCE, URINE; Value: CLEAR; Range: CLEAR; Status: F Test: COLOR, URINE; Value: YELLOW; Range: YELLOW; Status: F Test: PH,URINE; Value: 6.0; Range: 5.0-9.0; Units: UNITS; Status: F Test: SPECIFIC GRAVITY URINE AUTO; Value: 1.019; Range: 1.002-1.035; Status: F Test: PROTEIN, URINE AUTO; Value: NEGATIVE; Range: NEGATIVE; Units: mg/dL; Status: F Test: GLUCOSE, URINE (UA) AUTO; Value: NEGATIVE; Range: NEGATIVE; Units: mg/dL; Status: F Test: KETONE, URINE AUTO; Value: NEGATIVE; Range: NEGATIVE; Units: mg/dL; Status: F Test: UROBILINOGEN, URINE AUTO; Value: 2.0; Range: 0.0-2.0; Abnormal: Above high normal; Units: mg/dL; Status: F Test: BILIRUBIN, URINE AUTO; Value: NEGATIVE; Range: NEGATIVE; Status: F Test: NITRITE, URINE AUTO; Value: NEGATIVE; Range: NEGATIVE; Status: F Test: LEUKOCYTE ESTERASE, URINE AUTO; Value: NEGATIVE; Range: NEGATIVE; Status: F Test: BLOOD, URINE BLOOD; Value: 1+; Range: NEGATIVE; Abnormal: Above high normal; Status: F Test: WBC, URINE AUTO; Value: 0; Range: 0-3; Units: /HPF; Status: F Test: RBC, URINE AUTO; Value: 4; Range: 0-3; Abnormal: Above high normal; Units: /HPF; Status: F Test: BACTERIA, URINE AUTO; Value: NEGATIVE; Range: NEGATIVE; Status: F Test: SQUAMOUS EPITHELIAL CELL UR AU; Value: 0; Range: 0-6; Units: /HPF; Status: F Test: MUCUS, URINE; Value: SMALL; Range: NEGATIVE; Status: F Test: HYALINE CAST, URINE AUTO; Value: 0; Range: 0-1; Units: /LPF; Status: F Lab Order: AMMONIA; [facility] 07/26/16 17:15 Test: AMMONIA; Value: 45; Range: <32; Abnormal: Above high normal; Units: uMOL/L; Status: F Lab Order: HEMOGLOBIN; [facility] 07/26/16 17:15 Test: HEMOGLOBIN; Value: 12.9; Range: 14.0-18.0; Abnormal: Below low normal; Units: g/dl; Status: F Lab Order: PT & APTT; [facility] 07/26/16 17:15 Test: PROTHROMBIN TIME; Value: 21.9; Range: 12.3-14.5; Abnormal: Above high normal; Units: SECONDS; Status: F Test: INR; Value: 1.90; Status: F Test: PARTIAL THROMBOPLASTIN TIME; Value: 36.6; Range: 26.6-37.1; Units: SECONDS; Status: F Test Note: ; THERAPUTIC HUMAN INR VALUES INDICATIONS NORMAL RANGES PROPHYLAXIS/TREATMENT OF: VENOUS THROMBOSIS 2.0-3.0 PULMONARY EMBOLISM 2.0-3.0 PREVENTION OF SYSTEMIC EMBOLISM FROM: TISSUE HEART VALVES 2.0-3.0 ACUTE MYOCARDIAL INFARCTION 2.0-3.0 VALVULAR HEART DISEASE 2.0-3.0 ATRIAL FIBRILLATION 2.0-3.0 MECHANICAL VALVES(HIGH RISK) 2.5-3.5 RECURRENT MYOCARDIAL INFARCTION 2.5-3.5 Radiology Order: CT ABD & PELVIS: IV Contrast Only Test: CT ABD & PELVIS: IV Contrast Only REASON FOR EXAMINATION: Abdomen Pain; Clinical: Generalized abdominal pain.; ; Comparison: 06/18/2016.; ; Technique: Axial contrast enhanced images from the lung bases to the pubic; symphysis using 100 ml Isovue 370 intravenous contrast material with coronal and; sagittal re-formations.; ; Findings:; Lung bases demonstrate minimal right basilar atelectasis.; ; Continued stable evidence for cirrhosis and portal venous hypertension including; hepatosplenomegaly, recanalized umbilical vein, diffuse varices and portosystemic; shunting. Distended gallbladder with gallbladder wall thickening is also; identified and unchanged compared to 06/18/2016 - likely a product of chronic; cirrhosis. The enteric system is without obstruction or obvious acute; inflammatory process. Normal appendix identified in the right lower quadrant.; Scattered colonic diverticula noted without acute diverticulitis. Pelvis; demonstrates normal bladder and age appropriate prostate/seminal vesicles. No; free air or ascites. No significant adenopathy. Abdominal aorta without; aneurysm or dissection. Surrounding musculoskeletal structures are intact; without focal abnormality.; ; Impression:; 1. Continued evidence for cirrhosis and portal venous hypertension including; hepatosplenomegaly. Distended gallbladder with gallbladder wall thickening is; likely chronic and again related to cirrhosis.; 2. No free fluid and no obvious new acute intra-abdominal or pelvic pathology; appreciated.; 3. Trace right basilar atelectasis.; ; ; Signed by; Gt Villar MD 07/26/2016 11:20 A; Outcome: 07/26 10:59 CT Study completed. ck1 12:15 Decision to Hospitalize by Provider. cc10 17:27 Discharge Assessment: Patient awake and alert. obeys commands, Oriented to person, ead place and time. patient administered narcotics - yes. Patient was admitted to the hospital or transferred to another facility. The following High Risk Discharge criteria are identified: None. Admitted to OR accompanied by nurse, accompanied by tech, via stretcher, on monitor, with chart. Condition: stable. Property :Personal belongings accompany Pt. 18:47 Patient left the ED. [facility] Signatures: Dispatcher [employer] EDMS Breanna López, Waterproofing Mixer Unit lbd Steffi Alford RN RN srm Peters, Mary, RN RN [facility] Taryn Naidu, Reg Reg Marge Gastelum RN RN ck1 Betsy Oliveira Marlynn mm15 Ashlee Abbott,RN RN ead Deandre Bonilla, PA-C PA-C cc10 Lacho Da Silva, TEAM ASSISTANT TEAM ASSISTANT jrd Corrections: (The following items were deleted from the chart) 17:27 17:01 Pulse 62bpm; Monitor; elizabeth johnson Chart Complete MTDD
--- NOTE | 2016-07-28 19:49 | EDDOCDS ---
Physician Documentation [facility] Name: Escobar Lara Age: 41 yrs Sex: Male : 1975 Arrival Date: 07/26/2016 Time: 09:14 Bed Admit Hold Private MD: Florence Cai J Disposition: 07/26/16 12:15 Hospitalization ordered by Darcie Cai for Observation. Preliminary diagnosis are Hematemesis - hx of grade I varices, Liver disease, unspecified. - Bed requested for Admit. - Status is Observation. mcp - Condition is Stable. - Problem is new. - Symptoms have improved. Historical: - Allergies: no known allergies; - Home Meds: 1. Atarax Oral 25 mg daily 2. folic acid 1 mg Oral tab 1 tab once daily 3. lactulose 10 gram/15 mL (15 mL) Oral soln 15 mL once daily for (picked up med but has not started yet) 4. Lasix 20 mg Oral tab 1 tab once daily 5. magnesium oxide 400 mg Oral tab 800 mg daily 6. potassium chloride 10 mEq Oral cpER 1 cap once daily 7. vitamin b12 daily - PMHx: Cirrhosis; Hep C; esophageal varices; - PSHx: none; Endoscopy, Lower; Colonoscopy; - Social history: Smoking status: Patient uses tobacco products, current every day smoker. No barriers to communication noted, The patient speaks fluent Haitian, Speaks appropriately for age. - Family history: Not pertinent. - : The pt / caregiver states he / she is not on anticoagulants. Home medication list is obtained from the patient. - Exposure Risk Screening:: None identified. Vital Signs: 07/26 09:17 BP 161 / 85; Pulse 101; Resp 18; Temp 98.1(O); Pulse Ox 97% ; Weight 89.81 kg / 198 cmb lbs; Height 6 ft. 2 in. (187.96 cm); Pain 10/10; 10:12 BP 144 / 93; Pulse 91; Resp 18; Pulse Ox 95% on R/A; Pain 9/10; srm 11:38 BP 137 / 79 RA Sitting (auto/reg); Pulse 86; Resp 16; Pulse Ox 96% on R/A; Pain 9/10; jrd 11:40 Pain 9/10; ck1 14:58 BP 134 / 78 RA Supine (auto/reg); Pulse 86; Resp 16; Pulse Ox 94% on R/A; Pain 9/10; jrd 16:32 BP 137 / 71 RA Sitting (auto/reg); Pulse 81; Resp 16; Temp 97.7; Pulse Ox 93% on R/A; jrd Pain 10/10; 17:01 BP 136 / 85 (auto/); ead 17:01 Pulse 62 MON; Resp 16; Temp 99.6(TE); Pulse Ox 93% on R/A; ead 09:17 Body Mass Index 25.42 (89.81 kg, 187.96 cm) cmb MDM: 09:25 NS 0.9% 1000 ml IV at bolus once ordered. cc10 09:25 Ondansetron 4 mg IVP once ordered. cc10 09:25 IV Saline Lock ordered. cc10 09:25 Undress patient appropriately for examination ordered. cc10 09:26 CT ABD & PELVIS: IV Contrast Only Ordered. EDMS 09:26 Basic Metabolic Profile Ordered. EDMS 09:26 CBC with Diff Ordered. EDMS 09:26 Lipase Ordered. EDMS 09:26 Liver Profile Ordered. EDMS 09:26 Partial Thromboplastin Time Ordered. EDMS 09:26 Prothrombin Time Profile\E\INR Ordered. EDMS 09:26 Urinalysis Ordered. EDMS 09:27 Type & Screen Ordered. EDMS 09:27 NOTHING BY MOUTH+DIET ordered. EDMS 09:27 morphine 4 mg IVP once ordered. cc10 09:28 pantoprazole 40 mg IV at bolus once ordered. cc10 09:53 Financial registration complete. mm15 09:59 [facility] Payment Agreement was scanned into [employer] and attached to record. mm15 11:02 Basic Metabolic Profile Reviewed. cc10 11:02 CBC with Diff Reviewed. cc10 11:02 Lipase Reviewed. cc10 11:02 Liver Profile Reviewed. cc10 11:02 Prothrombin Time Profile\E\INR Reviewed. cc10 11:02 Partial Thromboplastin Time Reviewed. cc10 11:02 Type & Screen Reviewed. cc10 11:04 Dilaudid - HYDROmorphone 0.5 mg IVP once ordered. cc10 12:06 Urinalysis Reviewed. cc10 12:13 BED REQUEST+ADM ordered. EDMS 12:14 NOTHING BY MOUTH+DIET ordered. EDMS 12:16 AMMONIA Ordered. EDMS 12:29 Admission / Observation Status ordered. EDMS 12:29 NPO DIET ordered. EDMS 12:30 HEMOGLOBIN Ordered. EDMS 12:30 HEMOGLOBIN Ordered. EDMS 12:30 PT & APTT Ordered. EDMS 15:08 T-Sheet-- Draft Copy was scanned into [employer] and attached to record. gb 17:08 Admission Orders was scanned into [employer] and attached to record. lbd 18:42 PATHOLOGY REQUEST FOR SERVICE Ordered. EDMS 19:32 HEMOGLOBIN Ordered. EDMS 19:32 HEMOGLOBIN Ordered. EDMS 01 10:13 Consents was scanned into [employer] and attached to record. gb Administered Medications: 07/26 09:36 Drug: NS 0.9% 1000 ml [sodium chloride 0.9 % intravenous solution] Route: IV; Rate: srm bolus; Site: left forearm; 09:36 Drug: Ondansetron 4 mg [ondansetron HCl 2 mg/mL intravenous solution (2 mL)] Route: srm IVP; Site: left forearm; 09:37 Drug: pantoprazole 40 mg [pantoprazole 40 mg intravenous solution] Route: IV; Rate: srm bolus; Site: left forearm; 09:39 Drug: morphine 4 mg [morphine 4 mg/mL intravenous cartridge (1 mL)] Route: IVP; Site: srm left forearm; 10:13 Follow up: pt sleeping on stretcher-= arouses easily. states pain 9.5/10 PA aware srm 11:08 Drug: Dilaudid - HYDROmorphone 0.5 mg [hydromorphone 1 mg/mL injection syringe (0.5 ck1 mL)] Route: IVP; Site: left forearm; 11:40 Follow up: Pain 9/10 Adult; Response: Confirmed pt not driving.; No Adverse Reaction; ck1 Pain is decreased Signatures: Dispatcher [employer] EDMS Breanna López, Chairman And Ceo Unit lbd Steffi Alford RN RN srm Leny Guallpa RN RN [facility] Taryn Naidu, Reg Reg Marge Camacho RN RN ck1 Rama Asher mm15 Deandre Bonilla, PA-C PA-C cc10 The chart was reviewed and I authenticate all verbal orders and agree with the evaluation and treatment provided.Corrections: (The following items were deleted from the chart) 12:32 12:29 TYPE & SCREEN ordered. EDMS EDMS Attachments: 09:59 [facility] Payment Agreement mm15 15:08 T-Sheet-- Draft Copy gb 17:08 Admission Orders lbd Chart Complete MTDD
--- NOTE | 2016-07-28 19:49 | EDDOCDS ---
Physician Documentation [facility] Name: Escobar Lara Age: 41 yrs Sex: Male : 1975 Arrival Date: 07/26/2016 Time: 09:14 Bed Admit Hold Private MD: Florence Cai J Disposition: 07/26/16 12:15 Hospitalization ordered by Darcie Cai for Observation. Preliminary diagnosis are Hematemesis - hx of grade I varices, Liver disease, unspecified. - Bed requested for Admit. - Status is Observation. mcp - Condition is Stable. - Problem is new. - Symptoms have improved. Historical: - Allergies: no known allergies; - Home Meds: 1. Atarax Oral 25 mg daily 2. folic acid 1 mg Oral tab 1 tab once daily 3. lactulose 10 gram/15 mL (15 mL) Oral soln 15 mL once daily for (picked up med but has not started yet) 4. Lasix 20 mg Oral tab 1 tab once daily 5. magnesium oxide 400 mg Oral tab 800 mg daily 6. potassium chloride 10 mEq Oral cpER 1 cap once daily 7. vitamin b12 daily - PMHx: Cirrhosis; Hep C; esophageal varices; - PSHx: none; Endoscopy, Lower; Colonoscopy; - Social history: Smoking status: Patient uses tobacco products, current every day smoker. No barriers to communication noted, The patient speaks fluent [place] Islander, Speaks appropriately for age. - Family history: Not pertinent. - : The pt / caregiver states he / she is not on anticoagulants. Home medication list is obtained from the patient. - Exposure Risk Screening:: None identified. Vital Signs: 07/26 09:17 BP 161 / 85; Pulse 101; Resp 18; Temp 98.1(O); Pulse Ox 97% ; Weight 89.81 kg / 198 cmb lbs; Height 6 ft. 2 in. (187.96 cm); Pain 10/10; 10:12 BP 144 / 93; Pulse 91; Resp 18; Pulse Ox 95% on R/A; Pain 9/10; srm 11:38 BP 137 / 79 RA Sitting (auto/reg); Pulse 86; Resp 16; Pulse Ox 96% on R/A; Pain 9/10; jrd 11:40 Pain 9/10; ck1 14:58 BP 134 / 78 RA Supine (auto/reg); Pulse 86; Resp 16; Pulse Ox 94% on R/A; Pain 9/10; jrd 16:32 BP 137 / 71 RA Sitting (auto/reg); Pulse 81; Resp 16; Temp 97.7; Pulse Ox 93% on R/A; jrd Pain 10/10; 17:01 BP 136 / 85 (auto/); ead 17:01 Pulse 62 MON; Resp 16; Temp 99.6(TE); Pulse Ox 93% on R/A; ead 09:17 Body Mass Index 25.42 (89.81 kg, 187.96 cm) cmb MDM: 09:25 NS 0.9% 1000 ml IV at bolus once ordered. cc10 09:25 Ondansetron 4 mg IVP once ordered. cc10 09:25 IV Saline Lock ordered. cc10 09:25 Undress patient appropriately for examination ordered. cc10 09:26 CT ABD & PELVIS: IV Contrast Only Ordered. EDMS 09:26 Basic Metabolic Profile Ordered. EDMS 09:26 CBC with Diff Ordered. EDMS 09:26 Lipase Ordered. EDMS 09:26 Liver Profile Ordered. EDMS 09:26 Partial Thromboplastin Time Ordered. EDMS 09:26 Prothrombin Time Profile\E\INR Ordered. EDMS 09:26 Urinalysis Ordered. EDMS 09:27 Type & Screen Ordered. EDMS 09:27 NOTHING BY MOUTH+DIET ordered. EDMS 09:27 morphine 4 mg IVP once ordered. cc10 09:28 pantoprazole 40 mg IV at bolus once ordered. cc10 09:53 Financial registration complete. mm15 09:59 [facility] Payment Agreement was scanned into [employer] and attached to record. mm15 11:02 Basic Metabolic Profile Reviewed. cc10 11:02 CBC with Diff Reviewed. cc10 11:02 Lipase Reviewed. cc10 11:02 Liver Profile Reviewed. cc10 11:02 Prothrombin Time Profile\E\INR Reviewed. cc10 11:02 Partial Thromboplastin Time Reviewed. cc10 11:02 Type & Screen Reviewed. cc10 11:04 Dilaudid - HYDROmorphone 0.5 mg IVP once ordered. cc10 12:06 Urinalysis Reviewed. cc10 12:13 BED REQUEST+ADM ordered. EDMS 12:14 NOTHING BY MOUTH+DIET ordered. EDMS 12:16 AMMONIA Ordered. EDMS 12:29 Admission / Observation Status ordered. EDMS 12:29 NPO DIET ordered. EDMS 12:30 HEMOGLOBIN Ordered. EDMS 12:30 HEMOGLOBIN Ordered. EDMS 12:30 PT & APTT Ordered. EDMS 15:08 T-Sheet-- Draft Copy was scanned into [employer] and attached to record. gb 17:08 Admission Orders was scanned into [employer] and attached to record. lbd 18:42 PATHOLOGY REQUEST FOR SERVICE Ordered. EDMS 19:32 HEMOGLOBIN Ordered. EDMS 19:32 HEMOGLOBIN Ordered. EDMS 01 10:13 Consents was scanned into [employer] and attached to record. gb Administered Medications: 07/26 09:36 Drug: NS 0.9% 1000 ml [sodium chloride 0.9 % intravenous solution] Route: IV; Rate: srm bolus; Site: left forearm; 09:36 Drug: Ondansetron 4 mg [ondansetron HCl 2 mg/mL intravenous solution (2 mL)] Route: srm IVP; Site: left forearm; 09:37 Drug: pantoprazole 40 mg [pantoprazole 40 mg intravenous solution] Route: IV; Rate: srm bolus; Site: left forearm; 09:39 Drug: morphine 4 mg [morphine 4 mg/mL intravenous cartridge (1 mL)] Route: IVP; Site: srm left forearm; 10:13 Follow up: pt sleeping on stretcher-= arouses easily. states pain 9.5/10 PA aware srm 11:08 Drug: Dilaudid - HYDROmorphone 0.5 mg [hydromorphone 1 mg/mL injection syringe (0.5 ck1 mL)] Route: IVP; Site: left forearm; 11:40 Follow up: Pain 9/10 Adult; Response: Confirmed pt not driving.; No Adverse Reaction; ck1 Pain is decreased Signatures: Dispatcher [employer] EDMS Breanna López, Milling Planer Operator Unit lbd Steffi Alford RN RN srm Leny Guallpa RN RN [facility] Taryn Naidu, Reg Reg Marge Camacho RN RN ck1 Rama Asher mm15 Deandre Bonilla, PA-C PA-C cc10 The chart was reviewed and I authenticate all verbal orders and agree with the evaluation and treatment provided.Corrections: (The following items were deleted from the chart) 12:32 12:29 TYPE & SCREEN ordered. EDMS EDMS Attachments: 09:59 [facility] Payment Agreement mm15 15:08 T-Sheet-- Draft Copy gb 17:08 Admission Orders lbd Chart Complete MTDD
== END 2016-07-28 14:59 | disposition home or self-care (01) | DRG 253 ==
LOC: M ED 09:14 → M ED INP 12:24 → M MSPAV 20:53
PROVIDERS: ADMIT General Practice; ATTEND Internal Medicine
PROC: 0DB68ZX Excision of Stomach, Via Natural or Artificial Opening Endoscopic, Diagnostic (ICD-10-PCS; principal; 2016-07-26 16:49)
DX: K92.2 Gastrointestinal hemorrhage, unspecified (principal); D61.818 Other pancytopenia; D68.4 Acquired coagulation factor deficiency; K70.30 Alcoholic cirrhosis of liver without ascites; D69.59 Other secondary thrombocytopenia; K76.6 Portal hypertension; B37.81 Candidal esophagitis; K70.10 Alcoholic hepatitis without ascites; K21.9 Gastro-esophageal reflux disease without esophagitis; F17.210 Nicotine dependence, cigarettes, uncomplicated; B18.2 Chronic viral hepatitis C; L29.9 Pruritus, unspecified; K31.89 Other diseases of stomach and duodenum; D62 Acute posthemorrhagic anemia; I85.10 Secondary esophageal varices without bleeding; F10.20 Alcohol dependence, uncomplicated; Z79.899 Other long term (current) drug therapy

== ENCOUNTER 2016-08-04 09:20 | Emergency (ER) | payer OTHER ==
[~2016-08-04 09:20] MED LIST changes: +FLUC10TA PO; -FOLIC ACID 1MG/0.2ML VIAL SC SCH; +LACT10SO29 PO; +LASI20TA PO; +MAGN400T5 PO; -NICOTINE 7 MG/24 HR TRANSDERMAL TD SCH; +PROP1TAB29 PO; +SPIR50TA2 PO; +SUCR1TA PO; +THIA100T PO; -THIAMINE HCL 200 MG/2 ML VIAL (J3411) IV SCH
[2016-08-04 10:03] LABS: MEAN CORPUSCULAR HEMOGLOBIN 34.2 pg (27.0-33.0); MEAN CORPUSCULAR HGB CONC 35.2 g/dl (32.0-36.5); MEAN CORPUSCULAR VOLUME 97.2 fl (80.0-96.0); RED CELL DISTRIBUTION WIDTH 15.7 % (11.5-14.5); WHITE BLOOD COUNT 7.1 K/mm3 (4.0-10.0)
[2016-08-04 10:27] LABS: ALBUMIN 3.3 GM/DL (3.2-5.2); ALBUMIN/GLOBULIN RATIO 0.67 (1.00-1.93); ALKALINE PHOSPHATASE 135 U/L (45-117); ALT/SGPT 68 U/L (12-78); ANION GAP 10 MEQ/L (8-16); AST/SGOT 162 U/L (15-37); BILIRUBIN,DIRECT 1.7 MG/DL (0.0-0.2); BILIRUBIN,TOTAL 3.6 MG/DL (0.2-1.0); BLOOD UREA NITROGEN 8 MG/DL (7-18); CALCIUM LEVEL 8.6 MG/DL (8.5-10.1); CARBON DIOXIDE LEVEL 28 MEQ/L (21-32); CHLORIDE LEVEL 103 MEQ/L (98-107); CREATININE FOR GFR 0.91 MG/DL (0.70-1.30); GLOMERULAR FILTRATION RATE > 60.0 (>60); GLUCOSE, FASTING 114 MG/DL (70-105); POTASSIUM SERUM 3.8 MEQ/L (3.5-5.1); SODIUM LEVEL 141 MEQ/L (136-145); TOTAL PROTEIN 8.2 GM/DL (6.4-8.2)
[2016-08-04 10:42] LABS: AMPHETAMINES LEVEL URINE NEGATIVE (NEGATIVE); BENZODIAZEPINES URINE NEGATIVE (NEGATIVE); COCAINE METABOLITE URINE NEGATIVE (NEGATIVE); CONTROL LINE INT CTR LINE PRESENT; METHADONE URINE NEGATIVE (NEGATIVE); OPIATES URINE NEGATIVE (NEGATIVE); TRICYCLIC ANTIDEPRESS URINE NEGATIVE (NEGATIVE)
--- NOTE | 2016-08-04 10:58 | REP ---
CT Head without contrast HISTORY: Trauma COMPARISON: 06/29/2016 There is no intraparenchymal hemorrhage, acute infarct, mass or midline shift. The ventricular system is normal in appearance. There is no extra cerebral collection. There is no fracture. Mucosal thickening is present in the right maxillary sinus. Soft tissue swelling is present over the right orbit. IMPRESSION: There is no intracranial lesion. Signed by Frantz Franklin MD 08/04/2016 10:49 A
--- NOTE | 2016-08-04 11:10 | REP ---
CT CERVICAL SPINE WITHOUT CONTRAST: HISTORY: Trauma. There is no acute fracture or subluxation. Disc bulges are present at the C3-4 through C5-6 levels. A disc bulge with associated osteophyte formation is present at the C6-7 level. There is minimal narrowing of the spinal canal. Uncinate process hypertrophy is present at the C6-7 level. This produces mild and severe narrowing of the right and left C6 neural foramina respectively. The remaining neural foramina are patent. The C6-7 intervertebral disc is decreased in height consistent with disc degeneration. IMPRESSION: 1. There is no acute fracture or subluxation. 2. There is cervical spondylosis at the C3-4 through C6-7 levels. Signed by Frantz Franklin MD 08/04/2016 11:14 A
--- NOTE | 2016-08-04 11:11 | REP ---
MAXILLOFACIAL CT WITHOUT CONTRAST: HISTORY: Trauma. Minimal mucosal thickening is present in the maxillary, ethmoid and right sphenoid sinuses. A retention cyst or polyp is present in the right maxillary sinus. The remaining sinuses are clear. The right uncinate process is not completely seen. This is due to previous surgery or demineralization secondary to chronic sinusitis. The middle and inferior nasal turbinates are partially paradoxical. There is minimal deviation of the nasal septum to the left superiorly and to the right inferiorly. A spur is present arising from the left side of the nasal septum. The spur abuts the left inferior nasal turbinate. The cribriform plate, medial guzman of the orbits and optic canals are intact. The carotid canals form a segment of the posterolateral guzman of the sphenoid sinus. There is no fracture. Soft tissue swelling is present over the right orbit and maxillary sinus. IMPRESSION: 1. Sinus mucosal thickening as described above. 2. Right maxillary sinus retention cyst or polyp. 3. There is no fracture. Signed by Frantz Franklin MD 08/04/2016 11:15 A
[2016-08-04] MEDS ORDERED: NICOTINE 21MG/24HR 1 EA TRANSDERMAL As Ordered ONE (12:08)
[2016-08-04] MEDS ORDERED: LORazepam 1 MG TAB As Ordered ONE (13:31)
--- NOTE | 2016-08-04 20:17 | EDDOCDS ---
Physician Documentation [facility] Name: Escobar Lara Age: 41 yrs Sex: Male : 1975 Arrival Date: 08/04/2016 Time: 09:20 Bed [facility] Private MD: Denis Brooke Disposition: 08/04/16 19:55 Discharged to Home/Self Care. Impression: Alcohol abuse with intoxication, Contusion of unspecified part of head. - Condition is Stable. - Medication Reconciliation, Local Pharmacy Hours form. - Follow up: Referral list, As provided by PFS; When: Call to arrange an appointment; Reason: Recheck today's complaints, Continuance of care. - Problem is chronic. - Symptoms have improved. Historical: - Allergies: no known allergies; - Home Meds: 1. folic acid 1 mg Oral tab 1 tab once daily 2. lactulose 10 gram/15 mL (15 mL) Oral soln 15 mL once daily for (picked up med but has not started yet) 3. vitamin b12 daily 4. potassium chloride 10 mEq Oral cpER 1 cap once daily for (picked up med but has not started yet) 5. magnesium oxide 400 mg Oral tab 800 mg daily 6. Lasix 20 mg Oral tab 1 tab once daily 7. Atarax Oral 25 mg daily 8. propranolol 20 mg Oral tab 2 times per day - PMHx: Cirrhosis; esophageal varices; Hep C; - PSHx: Endoscopy, Lower; Colonoscopy; - Social history: Smoking status: Patient uses tobacco products, current every day smoker. No barriers to communication noted, The patient speaks fluent Taiwanese, Speaks appropriately for age. - Family history: Not pertinent. - : The pt / caregiver states he / she is not on anticoagulants. Home medication list is obtained from the patient, [employer] import data. - Exposure Risk Screening:: None identified. Vital Signs: 08/04 09:31 BP 138 / 80; Pulse 70; Resp 18; Temp 99.8; Pulse Ox 94% on R/A; Weight 89.81 kg / 198 rn1 lbs; Height 6 ft. 2 in. (187.96 cm); Pain 10/10; 20:15 BP 145 / 88; Pulse 79; Resp 18; Temp 99.1(O); Pulse Ox 99% on R/A; Pain 0/10; rw1 09:31 Body Mass Index 25.42 (89.81 kg, 187.96 cm) rn1 MDM: 09:22 Consult PFS/PSA/Vacuum Repairer ordered. br1 09:22 Consult PFS/PSA/Vacuum Repairer: Patient's case requires discussion with on-call br1 Psychiatrist ordered. 09:22 PSA/PFS to call Nursing Senior Trial Attorney, to enter patient data on [place] Safe Act if patient br1 involuntarily admitted or transferred for SI or HI ordered. 09:22 Confirm accurate psychiatric medication list and times of last dosage ordered. br1 09:22 Detain Pt Until Medically/PFS Cleared ordered. br1 09:23 Acetaminophen Level Ordered. EDMS 09:23 Basic Metabolic Profile Ordered. EDMS 09:23 Complete Blood Count Ordered. EDMS 09:23 Drug Eval Toxicology ED Only Ordered. EDMS 09:23 Ethyl Alcohol (ethanol) Ordered. EDMS 09:23 Liver Profile Ordered. EDMS 09:23 Salicylate Level Ordered. EDMS 09:23 Thyroid Stimulating Hormone Ordered. EDMS 10:01 CT Head Without Contrast Ordered. EDMS 10:02 CT Spine,Cervical W/o Contrast Ordered. EDMS 10:02 CT Maxilofacial W/out Contrast Ordered. EDMS 11:53 REGULAR DIET PLASTIC ANDRADE+DIET ordered. EDMS 12:13 Nicotine Patch 21 mg/24 hr 1 applic Transdermal once ordered. pml 13:13 LORazepam 1 mg PO once; prn anxiety ordered. br1 13:13 Acetaminophen Level Reviewed. br1 13:13 Basic Metabolic Profile Reviewed. br1 13:13 Complete Blood Count Reviewed. br1 13:13 Drug Eval Toxicology ED Only Reviewed. br1 13:13 Ethyl Alcohol (ethanol) Reviewed. br1 13:13 Liver Profile Reviewed. br1 13:13 Salicylate Level Reviewed. br1 13:13 Thyroid Stimulating Hormone Reviewed. br1 13:13 CT Head Without Contrast Reviewed. br1 13:13 CT Spine,Cervical W/o Contrast Reviewed. br1 13:13 CT Maxilofacial W/out Contrast Reviewed. br1 16:27 REGULAR DIET PLASTIC ANDRADE+DIET ordered. EDMS 18:15 Financial registration complete. zo 18:23 Recheck Vital Signs, perform reassessment and enter into [employer] ordered. br1 18:23 Consult PFS/PSA/Socail Worker: Cleared medically for eval ordered. br1 18:37 [facility] Payment Agreement was scanned into [employer] and attached to record. zo 19:12 Transition of care: After a detail discussion of the patient's case, care is br1 transferred to ED Physician, Dr. High. 19:52 Consult PFS/PSA/Socail Worker: Cleared medically for eval complete. ms 19:53 Consult PFS/PSA/Vacuum Repairer complete. ms 19:53 Consult PFS/PSA/Vacuum Repairer: Patient's case requires discussion with on-call ms Psychiatrist complete. 19:53 PSA/PFS to call Nursing Senior Trial Attorney, to enter patient data on [place] Safe Act if patient ms involuntarily admitted or transferred for SI or HI complete. 20:12 PSA Outpatient Referrals was scanned into [employer] and attached to record. jfb Administered Medications: 12:13 Drug: Nicotine 1 applic [nicotine 21 mg/24 hr daily transdermal patch (1 patches)] pml Route: Transdermal; Site: left upper arm; 13:38 Drug: LORazepam 1 mg [lorazepam 1 mg tablet (1 tabs)] Route: PO; pml 20:14 Follow up: Response: No Adverse Reaction rw1 Signatures: Dispatcher [employer] EDMS Steffi Alford, RN RN [facility] Leny Mejia, PSA PSA ms Luly,David,SEWAGE PLANT OPERATOR SEWAGE PLANT OPERATOR rw1 Claudia Balderas Brian, MD MD br1 Luz Ferreira, PSA PSA jfIngrid Harper,RN RN Hunter Jones, DO cs11 The chart was reviewed and I authenticate all verbal orders and agree with the evaluation and treatment provided.Attachments: 18:37 [facility] Payment Agreement zo MTDD
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
--- NOTE | 2016-08-06 21:17 | EDDOCDS ---
Physician Documentation [facility] Name: Escobar Lara Age: 41 yrs Sex: Male : 1975 Arrival Date: 08/04/2016 Time: 09:20 Bed [facility] Private MD: Denis Brooke Disposition: 08/04/16 19:55 Discharged to Home/Self Care. Impression: Alcohol abuse with intoxication, Contusion of unspecified part of head. - Condition is Stable. - Medication Reconciliation, Local Pharmacy Hours form. - Follow up: Referral list, As provided by PFS; When: Call to arrange an appointment; Reason: Recheck today's complaints, Continuance of care. - Problem is chronic. - Symptoms have improved. Historical: - Allergies: no known allergies; - Home Meds: 1. folic acid 1 mg Oral tab 1 tab once daily 2. lactulose 10 gram/15 mL (15 mL) Oral soln 15 mL once daily for (picked up med but has not started yet) 3. vitamin b12 daily 4. potassium chloride 10 mEq Oral cpER 1 cap once daily for (picked up med but has not started yet) 5. magnesium oxide 400 mg Oral tab 800 mg daily 6. Lasix 20 mg Oral tab 1 tab once daily 7. Atarax Oral 25 mg daily 8. propranolol 20 mg Oral tab 2 times per day - PMHx: Cirrhosis; esophageal varices; Hep C; - PSHx: Endoscopy, Lower; Colonoscopy; - Social history: Smoking status: Patient uses tobacco products, current every day smoker. No barriers to communication noted, The patient speaks fluent [place], Speaks appropriately for age. - Family history: Not pertinent. - : The pt / caregiver states he / she is not on anticoagulants. Home medication list is obtained from the patient, [employer] import data. - Exposure Risk Screening:: None identified. Vital Signs: 08/04 09:31 BP 138 / 80; Pulse 70; Resp 18; Temp 99.8; Pulse Ox 94% on R/A; Weight 89.81 kg / 198 rn1 lbs; Height 6 ft. 2 in. (187.96 cm); Pain 10/10; 20:15 BP 145 / 88; Pulse 79; Resp 18; Temp 99.1(O); Pulse Ox 99% on R/A; Pain 0/10; rw1 09:31 Body Mass Index 25.42 (89.81 kg, 187.96 cm) rn1 MDM: 09:22 Consult PFS/PSA/Mass Communications Instructor ordered. br1 09:22 Consult PFS/PSA/Mass Communications Instructor: Patient's case requires discussion with on-call br1 Psychiatrist ordered. 09:22 PSA/PFS to call Nursing Skip Miner, to enter patient data on [place] Safe Act if patient br1 involuntarily admitted or transferred for SI or HI ordered. 09:22 Confirm accurate psychiatric medication list and times of last dosage ordered. br1 09:22 Detain Pt Until Medically/PFS Cleared ordered. br1 09:23 Acetaminophen Level Ordered. EDMS 09:23 Basic Metabolic Profile Ordered. EDMS 09:23 Complete Blood Count Ordered. EDMS 09:23 Drug Eval Toxicology ED Only Ordered. EDMS 09:23 Ethyl Alcohol (ethanol) Ordered. EDMS 09:23 Liver Profile Ordered. EDMS 09:23 Salicylate Level Ordered. EDMS 09:23 Thyroid Stimulating Hormone Ordered. EDMS 10:01 CT Head Without Contrast Ordered. EDMS 10:02 CT Spine,Cervical W/o Contrast Ordered. EDMS 10:02 CT Maxilofacial W/out Contrast Ordered. EDMS 11:53 REGULAR DIET PLASTIC ANDRADE+DIET ordered. EDMS 12:13 Nicotine Patch 21 mg/24 hr 1 applic Transdermal once ordered. pml 13:13 LORazepam 1 mg PO once; prn anxiety ordered. br1 13:13 Acetaminophen Level Reviewed. br1 13:13 Basic Metabolic Profile Reviewed. br1 13:13 Complete Blood Count Reviewed. br1 13:13 Drug Eval Toxicology ED Only Reviewed. br1 13:13 Ethyl Alcohol (ethanol) Reviewed. br1 13:13 Liver Profile Reviewed. br1 13:13 Salicylate Level Reviewed. br1 13:13 Thyroid Stimulating Hormone Reviewed. br1 13:13 CT Head Without Contrast Reviewed. br1 13:13 CT Spine,Cervical W/o Contrast Reviewed. br1 13:13 CT Maxilofacial W/out Contrast Reviewed. br1 16:27 REGULAR DIET PLASTIC ANDRADE+DIET ordered. EDMS 18:15 Financial registration complete. zo 18:23 Recheck Vital Signs, perform reassessment and enter into [employer] ordered. br1 18:23 Consult PFS/PSA/Socail Worker: Cleared medically for eval ordered. br1 18:37 [place] [place] was scanned into [email or web address] and attached to record. zo 19:12 Transition of care: After a detail discussion of the patient's case, care is br1 transferred to ED Physician, Dr. High. 19:52 Consult PFS/PSA/Socail Worker: Cleared medically for eval complete. ms 19:53 Consult PFS/PSA/Mass Communications Instructor complete. ms 19:53 Consult PFS/PSA/Mass Communications Instructor: Patient's case requires discussion with on-call ms Psychiatrist complete. 19:53 PSA/PFS to call Nursing Skip Miner, to enter patient data on [place] Safe Act if patient ms involuntarily admitted or transferred for SI or HI complete. 20:12 PSA Outpatient Referrals was scanned into [email or web address] and attached to record. raúl 20:46 E Legal paperwork was scanned into [email or web address] and attached to record. dl 08/05 10:45 T-Sheet-- Draft Copy was scanned into [email or web address] and attached to record. gb Administered Medications: 08/04 12:13 Drug: Nicotine 1 applic [nicotine 21 mg/24 hr daily transdermal patch (1 patches)] pml Route: Transdermal; Site: left upper arm; 13:38 Drug: LORazepam 1 mg [lorazepam 1 mg tablet (1 tabs)] Route: PO; pml 20:14 Follow up: Response: No Adverse Reaction rw1 Signatures: Dispatcher [employer] EDMS Steffi Alford, RN RN [facility] Robinson Griggs, PSA PSA jl Leny Mejia, PSA PSA ms Elysia, Taryn, Reg Reg gb David Mauricio,SENIOR GENETIC COUNSELOR SENIOR GENETIC COUNSELOR rw1 Claudia Balderas Brian, MD MD br1 Luz Ferreira, PSA PSA Ingrid Harper,Hunter Au RN, DO DO cs11 The chart was reviewed and I authenticate all verbal orders and agree with the evaluation and treatment provided.Attachments: 18:37 [facility] Payment Agreement zo 08/05 10:45 T-Sheet-- Draft Copy gb Chart Complete MTDD
--- NOTE | 2016-08-06 21:17 | EDDOCDS ---
Physician Documentation [facility] Name: Escobar Lara Age: 41 yrs Sex: Male : 1975 Arrival Date: 08/04/2016 Time: 09:20 Bed [facility] Private MD: Denis Brooke Disposition: 08/04/16 19:55 Discharged to Home/Self Care. Impression: Alcohol abuse with intoxication, Contusion of unspecified part of head. - Condition is Stable. - Medication Reconciliation, Local Pharmacy Hours form. - Follow up: Referral list, As provided by PFS; When: Call to arrange an appointment; Reason: Recheck today's complaints, Continuance of care. - Problem is chronic. - Symptoms have improved. Historical: - Allergies: no known allergies; - Home Meds: 1. folic acid 1 mg Oral tab 1 tab once daily 2. lactulose 10 gram/15 mL (15 mL) Oral soln 15 mL once daily for (picked up med but has not started yet) 3. vitamin b12 daily 4. potassium chloride 10 mEq Oral cpER 1 cap once daily for (picked up med but has not started yet) 5. magnesium oxide 400 mg Oral tab 800 mg daily 6. Lasix 20 mg Oral tab 1 tab once daily 7. Atarax Oral 25 mg daily 8. propranolol 20 mg Oral tab 2 times per day - PMHx: Cirrhosis; esophageal varices; Hep C; - PSHx: Endoscopy, Lower; Colonoscopy; - Social history: Smoking status: Patient uses tobacco products, current every day smoker. No barriers to communication noted, The patient speaks fluent [place], Speaks appropriately for age. - Family history: Not pertinent. - : The pt / caregiver states he / she is not on anticoagulants. Home medication list is obtained from the patient, [employer] import data. - Exposure Risk Screening:: None identified. Vital Signs: 08/04 09:31 BP 138 / 80; Pulse 70; Resp 18; Temp 99.8; Pulse Ox 94% on R/A; Weight 89.81 kg / 198 rn1 lbs; Height 6 ft. 2 in. (187.96 cm); Pain 10/10; 20:15 BP 145 / 88; Pulse 79; Resp 18; Temp 99.1(O); Pulse Ox 99% on R/A; Pain 0/10; rw1 09:31 Body Mass Index 25.42 (89.81 kg, 187.96 cm) rn1 MDM: 09:22 Consult PFS/PSA/[place] ordered. br1 09:22 Consult PFS/PSA/[place]: Patient's case requires discussion with on-call br1 Psychiatrist ordered. 09:22 PSA/PFS to call Nursing Paper Coater, to enter patient data on [place] Safe Act if patient br1 involuntarily admitted or transferred for SI or HI ordered. 09:22 Confirm accurate psychiatric medication list and times of last dosage ordered. br1 09:22 Detain Pt Until Medically/PFS Cleared ordered. br1 09:23 Acetaminophen Level Ordered. EDMS 09:23 Basic Metabolic Profile Ordered. EDMS 09:23 Complete Blood Count Ordered. EDMS 09:23 Drug Eval Toxicology ED Only Ordered. EDMS 09:23 Ethyl Alcohol (ethanol) Ordered. EDMS 09:23 Liver Profile Ordered. EDMS 09:23 Salicylate Level Ordered. EDMS 09:23 Thyroid Stimulating Hormone Ordered. EDMS 10:01 CT Head Without Contrast Ordered. EDMS 10:02 CT Spine,Cervical W/o Contrast Ordered. EDMS 10:02 CT Maxilofacial W/out Contrast Ordered. EDMS 11:53 REGULAR DIET PLASTIC ANDRADE+DIET ordered. EDMS 12:13 Nicotine Patch 21 mg/24 hr 1 applic Transdermal once ordered. pml 13:13 LORazepam 1 mg PO once; prn anxiety ordered. br1 13:13 Acetaminophen Level Reviewed. br1 13:13 Basic Metabolic Profile Reviewed. br1 13:13 Complete Blood Count Reviewed. br1 13:13 Drug Eval Toxicology ED Only Reviewed. br1 13:13 Ethyl Alcohol (ethanol) Reviewed. br1 13:13 Liver Profile Reviewed. br1 13:13 Salicylate Level Reviewed. br1 13:13 Thyroid Stimulating Hormone Reviewed. br1 13:13 CT Head Without Contrast Reviewed. br1 13:13 CT Spine,Cervical W/o Contrast Reviewed. br1 13:13 CT Maxilofacial W/out Contrast Reviewed. br1 16:27 REGULAR DIET PLASTIC ANDRADE+DIET ordered. EDMS 18:15 Financial registration complete. zo 18:23 Recheck Vital Signs, perform reassessment and enter into [employer] ordered. br1 18:23 Consult PFS/PSA/Socail Worker: Cleared medically for eval ordered. br1 18:37 [place] Payment Agreement was scanned into [employer] and attached to record. zo 19:12 Transition of care: After a detail discussion of the patient's case, care is br1 transferred to ED Physician, Dr. High. 19:52 Consult PFS/PSA/Socail Worker: Cleared medically for eval complete. ms 19:53 Consult PFS/PSA/[place] complete. ms 19:53 Consult PFS/PSA/[place]: Patient's case requires discussion with on-call ms Psychiatrist complete. 19:53 PSA/PFS to call Nursing [employer] Co[employer], to enter patient data [place] if patient ms involuntarily admitted or transferred for SI or HI complete. 20:12 PSA Outpatient Referrals was scanned into [employer] and attached to record. raúl 20:46 E Legal paperwork was scanned into [employer] and attached to record. dl 08/05 10:45 T-Sheet-- Draft Copy was scanned into [employer] and attached to record. gb Administered Medications: 08/04 12:13 Drug: Nicotine 1 applic [nicotine 21 mg/24 hr daily transdermal patch (1 patches)] pml Route: Transdermal; Site: left upper arm; 13:38 Drug: LORazepam 1 mg [lorazepam 1 mg tablet (1 tabs)] Route: PO; pml 20:14 Follow up: Response: No Adverse Reaction rw1 Signatures: Dispatcher [employer] EDMS Steffi Alford, RN RN [facility] Robinson Griggs, PSA PSA jl Leny Mejia, PSA PSA ms Elysia, Taryn, Reg Reg gb David Mauricio,HOUSING RELOCATION HOUSING RELOCATION rw1 Claudia Balderas Brian, MD MD br1 Luz Ferreira, PSA PSA Ingrid Harper,Hunter Au RN, DO DO cs11 The chart was reviewed and I authenticate all verbal orders and agree with the evaluation and treatment provided.Attachments: 18:37 [facility] Payment Agreement zo 08/05 10:45 T-Sheet-- Draft Copy gb Chart Complete MTDD
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
== END 2016-08-04 20:16 | disposition home or self-care (01) ==
LOC: M ED 09:20
DX: F10.220 Alcohol dependence with intoxication, uncomplicated (principal); S09.90XA Unspecified injury of head, initial encounter; W50.0XXA Accidental hit or strike by another person, initial encounter; Y92.89 Other specified places as the place of occurrence of the external cause; Y93.89 Activity, other specified; Y99.8 Other external cause status; D69.6 Thrombocytopenia, unspecified; I85.00 Esophageal varices without bleeding; B19.20 Unspecified viral hepatitis C without hepatic coma; K74.60 Unspecified cirrhosis of liver; Z79.899 Other long term (current) drug therapy; F17.210 Nicotine dependence, cigarettes, uncomplicated
CPT/HCPCS: 36415; 70450; 70486; 72125; 80048; 80076; 80306; 84443; 85027; 99285; G0480

== ENCOUNTER 2016-08-07 08:45 | Outpatient (RCR) | payer OTHER | END 2016-08-15 | disposition home or self-care (01) | LOC: M OUTALCOH 08:45 | PROVIDERS: ATTEND Psychiatry & Neurology Psychiatry | DX: F10.20 Alcohol dependence, uncomplicated (principal); F11.20 Opioid dependence, uncomplicated; F12.20 Cannabis dependence, uncomplicated; F17.200 Nicotine dependence, unspecified, uncomplicated ==

== ENCOUNTER 2016-08-08 12:24 | Emergency (ER) | payer OTHER ==
--- NOTE | 2016-08-08 13:51 | REP ---
Chest x-ray: Two views. History: Cough . Comparison study: June 29, 2016 . Findings: The lungs are well inflated and free of infiltrate. The pleural angles are sharp. The heart size is normal. Pulmonary vasculature is not increased. No significant bony abnormality is seen. Impression: Negative chest x-ray. Signed by Zak Yap MD 08/08/2016 01:42 P
[2016-08-08] MEDS ORDERED: ONDANSETRON 4 MG ORAL DISINTEGRATING TAB (S0181) As Ordered ONE (14:59)
[2016-08-08 15:40] LABS: BASO % 0.5 % (0.0-1.0); EOS # 0.1 K/mm3 (0.0-0.50); EOS % 2.4 % (0.0-3.0); LARGE UNSTAINED CELL # 0.2 K/mm3 (0.0-0.4); LARGE UNSTAINED CELL % 3.1 % (0.0-4.0); LYMPH # 0.8 K/mm3 (1.5-4.5); LYMPH % 14.3 % (24.0-44.0); MEAN CORPUSCULAR HGB CONC 34.7 g/dl (32.0-36.5); MEAN CORPUSCULAR VOLUME 97.9 fl (80.0-96.0); MONO # 0.3 K/mm3 (0.0-0.8); MONO % 5.8 % (0.0-5.0); NEUTROPHILS # 4.2 K/mm3 (1.8-7.7); NEUTROPHILS % 73.9 % (36.0-66.0); RED CELL DISTRIBUTION WIDTH 15.7 % (11.5-14.5); WHITE BLOOD COUNT 5.7 K/mm3 (4.0-10.0)
--- NOTE | 2016-08-08 15:40 | REP ---
CT Head without contrast HISTORY: Trauma COMPARISON: 08/04/2016 There is no intraparenchymal hemorrhage, acute infarct, mass or midline shift. The ventricular system is normal in appearance. There is no extra cerebral collection. There is no fracture. The visualized sinuses are clear. IMPRESSION: There is no intracranial lesion. Signed by Frantz Franklin MD 08/08/2016 03:31 P
[2016-08-08 15:42] LABS: ALBUMIN 3.4 GM/DL (3.2-5.2); ALBUMIN/GLOBULIN RATIO 0.77 (1.00-1.93); ALKALINE PHOSPHATASE 194 U/L (45-117); ALT/SGPT 63 U/L (12-78); ANION GAP 8 MEQ/L (8-16); AST/SGOT 138 U/L (15-37); BILIRUBIN,TOTAL 3.5 MG/DL (0.2-1.0); BLOOD UREA NITROGEN 7 MG/DL (7-18); CALCIUM LEVEL 9.1 MG/DL (8.5-10.1); CARBON DIOXIDE LEVEL 28 MEQ/L (21-32); CHLORIDE LEVEL 103 MEQ/L (98-107); CREATININE FOR GFR 0.79 MG/DL (0.70-1.30); GLOMERULAR FILTRATION RATE > 60.0 (>60); GLUCOSE, FASTING 125 MG/DL (70-105); PLATELET COUNT, AUTOMATED 32 k/mm3 (150-450); POTASSIUM SERUM 3.7 MEQ/L (3.5-5.1); SODIUM LEVEL 139 MEQ/L (136-145); TOTAL PROTEIN 7.8 GM/DL (6.4-8.2)
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
--- NOTE | 2016-08-08 20:25 | ECGEPIP ---
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
== END 2016-08-08 18:00 | disposition home or self-care (01) ==
LOC: M ED 12:24
DX: S00.93XA Contusion of unspecified part of head, initial encounter (principal); Y04.0XXA Assault by unarmed brawl or fight, initial encounter; Y92.89 Other specified places as the place of occurrence of the external cause; Y93.89 Activity, other specified; Y99.8 Other external cause status; D64.9 Anemia, unspecified; R07.89 Other chest pain; K70.30 Alcoholic cirrhosis of liver without ascites; F41.9 Anxiety disorder, unspecified; M43.02 Spondylolysis, cervical region; J34.1 Cyst and mucocele of nose and nasal sinus; B18.2 Chronic viral hepatitis C; F17.210 Nicotine dependence, cigarettes, uncomplicated; Z79.899 Other long term (current) drug therapy
CPT/HCPCS: 36415; 70450; 70486; 71020; 72125; 80053; 82550; 82553; 85025; 93005; 99284; G0480

== ENCOUNTER → 2016-08-18 | Outpatient (REF) | payer OTHER ==
[2016-08-18 13:21] LABS: INR 1.97
[2016-08-18 13:36] LABS: HEPATITIS B SURFACE ANTIBODY POSITIVE (POSITIVE)
[2016-08-22 14:14] LABS: HCV RNA NAA QUALITIATIVE Positive (Negative); HEPATITIS C QUANTITATION 14300 IU/mL (.); HEPATITIS C VIRUS GENOTYPE 3 (.)
== END ==
LOC: M SFHCPLAZ 10:06
PROVIDERS: ATTEND Family Medicine
DX: B19.20 Unspecified viral hepatitis C without hepatic coma (principal); K70.31 Alcoholic cirrhosis of liver with ascites

== ENCOUNTER 2016-09-02 11:28 | Inpatient (IN) | payer MEDICAID, OTHER ==
[~2016-09-02] VITALS: Ht 188 cm; Wt 90.3 kg
[2016-09-02] MEDS ORDERED: diphenhydrAMINE INJ 50MG/ML VIAL (J1200) As Ordered ONE (12:53)
[2016-09-02] MEDS ORDERED: METOCLOPRAMIDE INJ 10MG/2ML VIAL (J2765) As Ordered ONE (12:53)
[2016-09-02 13:30] LABS: BASO % 0.3 % (0.0-1.0); EOS # 0.2 K/mm3 (0.0-0.50); EOS % 3.5 % (0.0-3.0); LARGE UNSTAINED CELL # 0.2 K/mm3 (0.0-0.4); LARGE UNSTAINED CELL % 3.7 % (0.0-4.0); LYMPH # 1.4 K/mm3 (1.5-4.5); LYMPH % 17.7 % (24.0-44.0); MEAN CORPUSCULAR HGB CONC 34.3 g/dl (32.0-36.5); MEAN CORPUSCULAR VOLUME 99.1 fl (80.0-96.0); MONO # 0.5 K/mm3 (0.0-0.8); MONO % 6.9 % (0.0-5.0); NEUTROPHILS # 4.4 K/mm3 (1.8-7.7); NEUTROPHILS % 67.9 % (36.0-66.0); RED CELL DISTRIBUTION WIDTH 16.1 % (11.5-14.5); WHITE BLOOD COUNT 6.5 K/mm3 (4.0-10.0)
[2016-09-02 13:31] LABS: PLATELET COUNT, AUTOMATED 40 k/mm3 (150-450)
[2016-09-02 13:44] LABS: ALBUMIN 3.1 GM/DL (3.2-5.2); ALBUMIN/GLOBULIN RATIO 0.78 (1.00-1.93); ALKALINE PHOSPHATASE 124 U/L (45-117); ALT/SGPT 54 U/L (12-78); AMYLASE 30 U/L (25-115); ANION GAP 7 MEQ/L (8-16); AST/SGOT 112 U/L (15-37); BILIRUBIN,DIRECT 1.7 MG/DL (0.0-0.2); BILIRUBIN,TOTAL 3.7 MG/DL (0.2-1.0); BLOOD UREA NITROGEN 7 MG/DL (7-18); CALCIUM LEVEL 8.4 MG/DL (8.5-10.1); CARBON DIOXIDE LEVEL 32 MEQ/L (21-32); CHLORIDE LEVEL 95 MEQ/L (98-107); CREATININE FOR GFR 0.73 MG/DL (0.70-1.30); GLOMERULAR FILTRATION RATE > 60.0 (>60); GLUCOSE, FASTING 118 MG/DL (70-105); POTASSIUM SERUM 3.8 MEQ/L (3.5-5.1); SODIUM LEVEL 134 MEQ/L (136-145); TOTAL PROTEIN 7.1 GM/DL (6.4-8.2)
[2016-09-02] MEDS ORDERED: ISOVUE-370 76% 100ML VIAL (Q9967) As Ordered ONE (14:10)
--- NOTE | 2016-09-02 14:38 | REP ---
Clinical: Lower abdominal pain. Technique: Axial contrast enhanced images from the lung bases to the pubic symphysis using 100 ml Isovue through 70 intravenous contrast material with coronal and sagittal re-formations. Comparison: 07/26/2016. Findings: Cirrhosis with hepatic splenomegaly and portal venous hypertension is appreciated including portosystemic shunting throughout the abdomen and pelvis and paraesophageal varices. No focal hepatic or splenic lesions are identified. Pancreas, gallbladder, bilateral adrenal glands and kidneys are normal. The enteric system is without obstruction or obvious acute inflammatory process pelvis demonstrates normal bladder and age appropriate prostate/seminal vesicles. No ascites. No free air. Musculoskeletal structures are intact. Lung bases clear. Impression: Continued stable findings related to cirrhosis and portal venous hypertension. No acute intra-abdominal or pelvic pathology appreciated. Signed by Gt Villar MD 09/02/2016 02:29 P
[2016-09-02] MEDS ORDERED: LACTULOSE 20 GM/30 ML SYRUP UD As Ordered ONE (15:17)
[2016-09-02 15:24] LABS: CONTROL LINE INT CTR LINE PRESENT; METHADONE URINE NEGATIVE (NEGATIVE); TRICYCLIC ANTIDEPRESS URINE NEGATIVE (NEGATIVE)
--- NOTE | 2016-09-02 17:22 | REP ---
Clinical: Right upper quadrant pain with elevated bilirubin levels. Technique: Real time pressley scale ultrasound examination using curved array transducer. Comparison: 06/29/2016. Findings: The liver is heterogeneous and again consistent with known cirrhosis and hepatocellular disease. Pancreas is incompletely evaluated. The gallbladder demonstrates chronic wall thickening without gallstones, pericholecystic fluid, or biliary ductal dilatation. No sonographic Blankenship's sign was elicited. Common bile duct measures 4 mm diameter. The right kidney is normal in reniform shape without hydronephrosis and measures 11.0 x 6.2 x 7.2 cm. No ascites in the right upper quadrant. Impression: Gallbladder wall thickening and hepatocellular disease consistent with known cirrhosis. No acute findings. Signed by Gt Villar MD 09/02/2016 05:14 P
[2016-09-02] MEDS ORDERED: PROP40TA PO (17:33)
--- NOTE | 2016-09-02 17:45 | REP ---
Clinical: Headache. Elevated ammonia levels. Comparison: 08/08/2016 . Findings: The ventricles, sulci, and cisterns are normal in position and appearance. Rodriges-white differentiation is maintained. No acute intracranial hemorrhage, mass/mass effect, pathology or trauma/injury. No evidence for acute infarction. No extra-axial fluid collection. Calvarium is intact. Paranasal sinuses and mastoid air cells are clear. Impression: Normal noncontrast head CT. No evidence for acute intracranial pathology or trauma/injury. Signed by Gt Villar MD 09/02/2016 05:36 P
[2016-09-02] MEDS ORDERED: ONDANSETRON 4MG/2ML VIAL (J2405) IV PRN (20:15)
[2016-09-02 20:37] LABS: URIC ACID 5.2 MG/DL (3.5-7.2)
--- NOTE | 2016-09-02 21:25 | HPE ---
DATE OF ADMISSION: 09/02/2016 PRIMARY CARE PROVIDER: Dr. Brooke HOSPITALIZATION COURSE: The patient is a 41-year-old male who presented to [facility] on 09/02/2016 for worsening bilateral lower extremity pain. During the encounter, the patient has decreased altered mental status, unable to maintain alertness and awakeness for long duration. The patient had to be redirected multiple times during the encounter. The patient started having lower extremity burning type of sharp pain over the past week and it is getting worse. The patient is noted to have some warmth of the lower extremities and complained about the fever and chills for the past week. The patient was also noted to have increased migraine type of headache. Denies any chest pain, shortness of breath, nausea, vomiting. When the patient arrived in the emergency room, laboratory showed that the patient has an ammonia level of 131. One dose of lactulose orally was given and the hospitalist team was called for admission. ALLERGIES: No known drug allergies. HOME MEDICATIONS: - vitamin B12 1000 mcg by mouth daily - folic acid 1 mg by mouth daily - Lasix 20 mg by mouth daily - lactulose 15 mg by mouth daily - magnesium oxide 800 mg by mouth daily - potassium chloride 10 mEq by mouth daily - propranolol 40 mg by mouth daily - spironolactone 50 mg by mouth daily - thiamine 100 mg by mouth daily PAST MEDICAL HISTORY: 1. Hepatitis C, has not started on antiviral treatment yet. 2. Liver cirrhosis. 3. History of alcohol abuse. 4. Pancytopenia secondary to liver cirrhosis. 5. Esophageal varices, grade 1. EGD done by Dr. Jean in April 2016. 6. Nicotine abuse. 7. Gastroesophageal reflux disease (GERD). 8. Coagulopathy secondary to liver disease. PAST SURGICAL HISTORY: EGD and colonoscopy in April [address] Jean. SOCIAL HISTORY: The patient smokes one pack daily for more than 15 years. The patient quit drinking 1-1/2 weeks ago. Uses marijuana on a daily basis. REVIEW OF SYSTEMS: GENERAL: Positive fever and chills for one week. HEENT: No vision changes. No auditory changes. CARDIOVASCULAR: No chest pain. No palpitations. RESPIRATORY: No shortness of breath. No cough. No sputum production. GASTROINTESTINAL: No nausea. No vomiting. No abdominal pain. MUSCULOSKELETAL: Complains of burning type sharp pain in bilateral lower extremities from the bilateral ankles. It has been worsening since the past 2 weeks. NEUROLOGIC: Complains about migraine type of headache. No numbness or tingling. OBJECTIVE: VITAL SIGNS: Blood pressure is 112/57, pulse is 64, respirations 16, temperature is 97.4, pulse oximetry is 96% on room air. Body weight is 88.45 kg. Body height is 187.96 cm. GENERAL: Unable to maintain alertness or awakeness for long duration; however, the patient is able to answer questions with multiple redirections. HEENT: Normocephalic, atraumatic. CARDIOVASCULAR: Positive S1, S2. Regular rate. LUNGS: Clear to auscultation bilaterally. ABDOMEN: Soft, nontender, nondistended. Bowel sounds present. MUSCULOSKELETAL: Positive erythema from the bilateral ankle up to the mid novak, tenderness to palpation. No significant swelling. No drainage or foul smelling wounds. Multiple tattoos throughout the body. NEUROLOGIC: Sensation to fine touch grossly intact. No asterixis. Muscle strength 5/5. LABORATORY DATA: WBC 6.5, hemoglobin 12.1, hematocrit 35.2, platelet count is 40. Sodium is 134, potassium 3.8, chloride is 95, carbon dioxide 32, BUN 7, creatinine 0.73, GFR greater than 60, fasting glucose 118, calcium 8.4, total bilirubin 0.7, direct bilirubin 1.7, AST 112, ALT 54, alkaline phosphatase 124, ammonia level is 131, total protein 7.1, albumin 3.1, amylase 30, lipase 151. Urine toxicology is positive for amphetamine and marijuana. UA is negative. Microbiology: Urine culture is pending. IMAGING STUDIES: CT of the head without contrast showed no evidence of acute intracranial pathology or trauma. Normal non-contrast head CT. Gallbladder ultrasound showed gallbladder wall thickening and hepatocellular disease consistent with cirrhosis, no acute findings. CT of the abdomen and pelvis showed stable findings related to cirrhosis and portal venous hypertension. No acute intraabdominal or pelvic pathology. ASSESSMENT AND PLAN: 1. Metabolic encephalopathy secondary to elevated ammonia level. The patient will be started on elevated dose of lactulose. The patient will be observed on the medical/surgical floor. 2. Liver cirrhosis secondary to hepatitis C and alcohol abuse. The patient continues on Lasix and spironolactone and propranolol. 3. Esophageal varices. On propranolol. 4. Chronic tobacco. The patient will have a nicotine patch. 5. History of alcohol abuse. The patient will be on thiamine, folic acid, and multivitamin. The patient said that he quit drinking 1-1/2 weeks ago. 6. Chronic marijuana abuse. 7. Coagulopathy secondary to chronic kidney disease. No acute bleeding at this moment. 8. Anemia of chronic disease. 9. Thrombocytopenia. The patient currently has a platelets of 40. No active bleeding at this moment. 10. Bilateral lower extremity erythema with fever, concern for cellulitis. Start on empiric antibiotic with Teflaro. 11. Deep vein thrombosis (DVT) prophylaxis. Due to thrombocytopenia, the patient will be on thromboembolic compression stockings (TEDS) and sequential compression device (SCD).
[2016-09-02] MEDS ORDERED: ACETAMINOPHEN 500 MG TAB PO PRN (21:30)
[2016-09-02] MEDS ORDERED: PERCOCET 5MG/325MG TAB As Ordered ONE (21:47)
[2016-09-02] MEDS ORDERED: CEFTAROLINE FOSAMIL 600 MG in D5W MINI-BAG PLUS 50 ML IV SCH (22:00)
[2016-09-03 00:10] VITALS: BP 121/78
--- NOTE | 2016-09-03 00:17 | EDDOCDS ---
Physician Documentation [facility] Name: Escobar Lara Age: 41 yrs Sex: Male : 1975 Arrival Date: 09/02/2016 Time: 11:28 Bed I5 / M5 Private MD: Florence Cai J Disposition: 09/02/16 19:12 Hospitalization ordered by Kym Chi for Inpatient Admission. Preliminary diagnosis are Headache - WITH ELEVATED AMMONIA LEVEL \T\ 131, NEGATIVE HEAD CT, Cellulitis of left lower limb, Cellulitis of right lower limb. - Bed requested for 5 Paige. - Status is Inpatient Admission. ld5 - Condition is Stable. - Problem is new. - Symptoms are unchanged. Historical: - Allergies: no known allergies; - Home Meds: 1. Atarax Oral 25 mg daily (Last dose: 09/01/2016) 2. folic acid 1 mg Oral tab 1 tab once daily (Last dose: 09/01/2016) 3. lactulose 10 gram/15 mL (15 mL) Oral soln 15 mL once daily for (picked up med but has not started yet) (Last dose: 09/01/2016) 4. Lasix 20 mg Oral tab 1 tab once daily (Last dose: 09/01/2016) 5. magnesium oxide 400 mg Oral tab 800 mg daily (Last dose: 09/01/2016) 6. potassium chloride 10 mEq Oral cpER 1 cap once daily for (picked up med but has not started yet) (Last dose: 09/01/2016) 7. propranolol 20 mg Oral tab 2 times per day (Last dose: 09/01/2016) 8. vitamin b12 daily (Last dose: 09/01/2016) - PMHx: Cirrhosis; esophageal varices; Hep C; - PSHx: Endoscopy, Lower; Colonoscopy; - Social history: Smoking status: Patient uses tobacco products, current every day smoker. No barriers to communication noted, The patient speaks fluent Icelandic, Speaks appropriately for age. - Family history: No immediate family members are acutely ill. - : The pt / caregiver states he / she is not on anticoagulants. Home medication list is obtained from the patient. - Exposure Risk Screening:: None identified. Vital Signs: 09/02 11:31 BP 131 / 72; Pulse 70; Resp 17; Temp 96.5(T); Pulse Ox 95% on R/A; Weight 88.45 kg / lr2 195 lbs (R); Height 6 ft. 2 in. (187.96 cm) (R); Pain 10/10; 18:28 BP 112 / 57; Pulse 64; Resp 16; Temp 97.4(O); Pulse Ox 96% on R/A; Pain 10/10; nb2 20:41 BP 128 / 68; Pulse 61; Resp 18; Temp 97.1(O); Pulse Ox 94% on R/A; Pain 10/10; kb5 23:57 BP 128 / 73; Pulse 66; Resp 18; Temp 97.9(O); Pulse Ox 95% on R/A; Pain 10/10; kb5 11:31 Body Mass Index 25.04 (88.45 kg, 187.96 cm) lr2 MDM: 12:35 Financial registration complete. lg 12:37 NS 0.9% 1000 ml IV at bolus once ordered. btw 12:37 IV Saline Lock ordered. btw 12:37 Undress patient appropriately for examination ordered. btw 12:37 Metoclopramide 20 mg IV at 80 mg/hr once over 15 mins ordered. btw 12:37 diphenhydrAMINE 50 mg IVP once ordered. btw 12:37 Amylase Ordered. EDMS 12:37 Basic Metabolic Profile Ordered. EDMS 12:37 CBC with Diff Ordered. EDMS 12:37 Lipase Ordered. EDMS 12:37 Liver Profile Ordered. EDMS 12:38 Urinalysis Ordered. EDMS 12:38 Urine Culture Ordered. EDMS 12:38 Ammonia (Little Green Tube on Ice, Not Pea Green) Ordered. EDMS 12:38 CT ABD & PELVIS: IV Contrast Only Ordered. EDMS 12:38 NOTHING BY MOUTH+DIET ordered. EDMS 12:39 Drug Eval Toxicology ED Only Ordered. EDMS 12:39 ETOH Ordered. EDMS 12:39 [facility] Payment Agreement was scanned into [employer] and attached to record. lg 14:54 Basic Metabolic Profile Reviewed. btw 14:54 CBC with Diff Reviewed. btw 14:54 Liver Profile Reviewed. btw 14:54 Ammonia (Little Green Tube on Ice, Not Pea Green) Reviewed. btw 14:54 Amylase Reviewed. btw 14:54 Lipase Reviewed. btw 14:54 ETOH Reviewed. btw 14:59 Lactulose Liquid 60 ml PO once ordered. btw 15:35 Urinalysis Reviewed. btw 15:35 Drug Eval Toxicology ED Only Reviewed. btw 15:35 CT ABD & PELVIS: IV Contrast Only Reviewed. btw 15:37 Gallbladder US Ordered. EDMS 16:36 CT Head Without Contrast Ordered. EDMS 16:37 BED REQUEST+ADM ordered. EDMS 20:07 Admission / Observation Status ordered. EDMS 20:07 NPO DIET ordered. EDMS 20:11 COMPLETE BLOOD COUNT Ordered. EDMS 20:11 BASIC METABOLIC PROFILE Ordered. EDMS 20:19 LYME DISEASE SCREEN Ordered. EDMS 20:35 Duplex, Ext LOWER veins, bilat Ordered. EDMS 20:53 T-Sheet-- Draft Copy was scanned into [employer] and attached to record. klr 21:46 oxyCODONE-acetaminophen 5 mg-325 mg 1 tabs PO once ordered. jo3 23:30 NS 0.9% 1000 ml IV at 80 mL/hr continuous ordered. ld5 Administered Medications: 13:18 Drug: diphenhydrAMINE 50 mg [diphenhydramine 50 mg/mL injection solution (1 mL)] Route: mb9 IVP; Site: left forearm; 13:19 Drug: NS 0.9% 1000 ml [sodium chloride 0.9 % intravenous solution] Route: IV; Rate: mb9 bolus; Site: left forearm; 13:19 Drug: Metoclopramide 20 mg [metoclopramide 5 mg/mL injection solution] Route: IV; Rate: mb9 80 mg/hr; Infused Over: 15 mins; Site: left antecubital; 15:21 Drug: Lactulose 60 ml [lactulose 20 gram/30 mL oral solution (60 mL)] Route: PO; ld5 21:50 Drug: oxyCODONE-acetaminophen 1 tabs [oxycodone-acetaminophen 5 mg-325 mg tablet (1 jo3 tabs)] Route: PO; 23:30 Follow up: Response: Confirmed pt not driving.; No significant change. ld5 23:30 Drug: NS 0.9% 1000 ml [sodium chloride 0.9 % intravenous solution] Route: IV; Rate: 80 ld5 mL/hr; Site: left hand; 23:46 Follow up: IV Status: Infusion continued upon admit ld5 Signatures: Dispatcher [employer] EDMS Staci Cardona, Reg Reg lg Fran, Allen, [place] Room Operator Unit ml3 Noni Martinez,RN RN jo3 Jet Walls PA PA btw Dickerson, Laura, RN RN komal5 Bhargavi Montilla,RN RN dsf Zandra Hernandez PA-C PAMara dt4 Brannon CarrollRN RN mb9 Monica Thrasher klcharmaine The chart was reviewed and I authenticate all verbal orders and agree with the evaluation and treatment provided.Corrections: (The following items were deleted from the chart) 20:18 19:57 C REACTIVE PROTEIN QUANTITATIV ordered. EDMS EDMS 20:18 20:09 URIC ACID ordered. EDMS EDMS 20:20 20:09 LYME DISEASE SCREEN ordered. EDMS EDMS Attachments: 12:39 [facility] Payment Agreement lg 20:53 T-Sheet-- Draft Copy klr MTDD
[2016-09-03] MEDS: LACTULOSE 20 GM/30 ML SYRUP UD PO SCH ×4 (00:54→21:12)
[2016-09-03] MEDS: PROPRANOLOL 20 MG TAB PO SCH ×3 (00:55→21:11)
[2016-09-03] MEDS: NS 1,000 ML IV SCH ×2 (00:56→09:08)
[2016-09-03] MEDS: CEFTAROLINE FOSAMIL 600 MG in D5W MINI-BAG PLUS 50 ML IV SCH ×2 (00:57→13:38)
[2016-09-03 06:00] VITALS: BP 126/72
[2016-09-03 06:58] LABS: MEAN CORPUSCULAR HEMOGLOBIN 35.3 pg (27.0-33.0); MEAN CORPUSCULAR HGB CONC 34.9 g/dl (32.0-36.5); MEAN CORPUSCULAR VOLUME 101.2 fl (80.0-96.0); RED CELL DISTRIBUTION WIDTH 15.9 % (11.5-14.5); WHITE BLOOD COUNT 3.8 K/mm3 (4.0-10.0)
[2016-09-03 07:01] LABS: BLOOD UREA NITROGEN 4 MG/DL (7-18); CALCIUM LEVEL 8.4 MG/DL (8.5-10.1); CARBON DIOXIDE LEVEL 35 MEQ/L (21-32); CHLORIDE LEVEL 103 MEQ/L (98-107); CREATININE FOR GFR 0.76 MG/DL (0.70-1.30); GLOMERULAR FILTRATION RATE > 60.0 (>60); GLUCOSE, FASTING 114 MG/DL (70-105)
[2016-09-03 07:08] LABS: ANION GAP 3 MEQ/L (8-16); POTASSIUM SERUM 3.9 MEQ/L (3.5-5.1)
[2016-09-03 07:09] LABS: SODIUM LEVEL 141 MEQ/L (136-145)
--- NOTE | 2016-09-03 08:45 | REP ---
Clinical: Lower extremity pain . Technique: Rodriges scale and color Doppler evaluation using linear high frequency transducer. Findings: Ultrasound examination of the right and left lower extremity deep venous structures from the common femoral vein to the popliteal vein demonstrates normal compressibility flow and wave patterns in response to respiration and augmentation. There is no evidence for deep venous thrombosis. Impression: No evidence for deep venous thrombosis of the bilateral lower extremities . Signed by Gt Villar MD 09/03/2016 08:36 A
[2016-09-03] MEDS: NICOTINE 14 MG/24 HR TRANSDERMAL TD SCH (09:09)
[2016-09-03] MEDS: MAGNESIUM OXIDE 400 MG TAB (MAG-OX) PO SCH (09:09)
[2016-09-03] MEDS: THIAMINE 100 MG TAB PO SCH (09:10)
[2016-09-03] MEDS: FUROSEMIDE 20 MG TAB PO SCH (09:10)
[2016-09-03] MEDS: SPIRONOLACTONE 50 MG TAB PO SCH (09:10)
[2016-09-03] MEDS: CYANOCOBALAMIN 500 MCG TAB PO SCH (09:10)
[2016-09-03] MEDS: FOLIC ACID 1 MG TAB PO SCH (09:10)
[2016-09-03] MEDS: POTASSIUM CHLORIDE 10 MEQ SR TABLET PO SCH (09:10)
[2016-09-03] MEDS: PERCOCET 5MG/325MG TAB PO PRN ×2 (13:50→21:12)
[2016-09-03 14:00] VITALS: BP 121/81
[2016-09-03 22:00] VITALS: BP 122/83
[2016-09-04] MEDS: CEFTAROLINE FOSAMIL 600 MG in D5W MINI-BAG PLUS 50 ML IV SCH (01:25)
[2016-09-04 06:00] VITALS: BP 136/76
[2016-09-04] MEDS: LACTULOSE 20 GM/30 ML SYRUP UD PO SCH (06:15)
[2016-09-04 07:09] LABS: MEAN CORPUSCULAR HEMOGLOBIN 35.1 pg (27.0-33.0); MEAN CORPUSCULAR HGB CONC 34.7 g/dl (32.0-36.5); MEAN CORPUSCULAR VOLUME 101.1 fl (80.0-96.0); WHITE BLOOD COUNT 3.5 K/mm3 (4.0-10.0)
[2016-09-04 07:21] LABS: ANION GAP 4 MEQ/L (8-16); BLOOD UREA NITROGEN 4 MG/DL (7-18); CALCIUM LEVEL 8.5 MG/DL (8.5-10.1); CARBON DIOXIDE LEVEL 34 MEQ/L (21-32); CHLORIDE LEVEL 101 MEQ/L (98-107); CREATININE FOR GFR 0.76 MG/DL (0.70-1.30); GLOMERULAR FILTRATION RATE > 60.0 (>60); GLUCOSE, FASTING 94 MG/DL (70-105); SODIUM LEVEL 139 MEQ/L (136-145)
[2016-09-04 08:39] VITALS: BP 136/76
[2016-09-04] MEDS: FOLIC ACID 1 MG TAB PO SCH (08:39)
[2016-09-04] MEDS: PROPRANOLOL 20 MG TAB PO SCH (08:39)
[2016-09-04] MEDS: SPIRONOLACTONE 50 MG TAB PO SCH (08:39)
[2016-09-04] MEDS: THIAMINE 100 MG TAB PO SCH (08:39)
[2016-09-04] MEDS: PERCOCET 5MG/325MG TAB PO PRN (08:40)
[2016-09-04] MEDS: POTASSIUM CHLORIDE 10 MEQ SR TABLET PO SCH (08:40)
[2016-09-04] MEDS: FUROSEMIDE 20 MG TAB PO SCH (08:40)
[2016-09-04] MEDS: MAGNESIUM OXIDE 400 MG TAB (MAG-OX) PO SCH (08:40)
[2016-09-04] MEDS: NICOTINE 14 MG/24 HR TRANSDERMAL TD SCH (08:41)
[2016-09-04] MEDS: CYANOCOBALAMIN 500 MCG TAB PO SCH (08:41)
--- NOTE | 2016-09-04 08:50 | IPNPDOC ---
Subjective Date Seen The patient was seen on 09/03/16. Subjective Chief Complaint/HPI The patient is a 41-year-old male admitted with a reason for visit of Metabolic Encephalopathy. Events since last encounter pt seen and examined, more awake and alert today, feels ready to go home, no overnight events per nursing, pt is hungry and asking for diet Objective Physical Examination General Exam: Positive: Alert, No Acute Distress ENT Exam: Positive: Atraumatic, Mucous membr. moist/pink, Pharynx Normal Chest Exam: Positive: Clear to auscultation, Normal air movement Heart Exam: Positive: Normal S1, Normal S2, Rate Normal, Regular Rhythm, Negative: Murmurs, Rubs Extremity Exam: Positive: Swelling, Negative: Clubbing, Cyanosis, Edema, Normal pulses, Other, Tenderness Assessment /Plan Problems (1) Metabolic encephalopathy Status: Acute Problem Text: * resolved * Ammonia level is still elevated * will continue lactulose and monitor for one more day (2) Liver failure Status: Chronic Response to Treatment: Stable Problem Text: * continue spironolactone, lasix, propranolol, lactulose (3) Hepatitis C Status: Chronic Problem Text: * pt is supposed to follow up with dr castle but has yet to make an appointment (4) Alcohol abuse Status: Chronic (5) Thrombocytopenia Status: Chronic Problem Text: * secondary to liver disease * platelets lower today at 31 (6) Coagulopathy Status: Chronic Plan/VTE VTE Prophylaxis Ordered?: Yes VS, I&O, [facility] Vital Signs/I&O Vital Signs Date Time Temp Pulse Resp B/P Pulse Ox O2 Delivery O2 Flow Rate FiO2 09/04/16 08:40 18 09/04/16 08:39 64 136/76 09/04/16 06:00 97.0 96 Room Air I&O- Last 24 Hours up to 6 AM 09/04/16 06:00 Intake Total 2470 ml Output Total 0 ml Balance 2470 ml Laboratory Data 24H LABS Laboratory Tests 2 09/04/16 06:44: Anion Gap 4L, Blood Urea Nitrogen 4L, Creatinine 0.76, Sodium Level 139, Potassium Level 4.0, Chloride Level 101, Carbon Dioxide Level 34H, Calcium Level 8.5, Glomerular Filtration Rate > 60.0 09/04/16 07:58: Ammonia 75H CBC/BMP Laboratory Tests 09/04/16 06:44 Calcium Level 8.5, Red Blood Count 3.44 L, Mean Corpuscular Volume 101.1 H, Mean Corpuscular Hemoglobin 35.1 H, Mean Corpuscular Hemoglobin Concent 34.7, Red Cell Distribution Width 16.0 H Microbiology Microbiology 09/02/16 Urine Culture - Final, Complete JAMAICAELAINAJuan BARRETT Sep 04, 2016 08:50
--- NOTE | 2016-09-04 16:07 | DSES ---
DATE OF ADMISSION: 09/02/2016 DATE OF DISCHARGE: 09/04/2016 REASON FOR ADMISSION: Hepatic encephalopathy. FINAL DIAGNOSES: 1. Metabolic encephalopathy secondary to elevated ammonia level. 2. Hepatic encephalopathy. 3. History of hepatitis C. 4. Alcohol abuse. 5. Thrombocytopenia. 6. Coagulopathy. HISTORY OF PRESENT ILLNESS: The patient is a 41-year-old male, presented to the emergency room with worsening bilateral lower extremity pain. The patient had decrease altered mental status, was unable to maintain alertness long enough to provide history. He is stating he is having lower extremity burning, sharp in nature, getting worse, with some warmth over lower extremities. He was admitted under hospitalist service. He had an ammonia level of 131. No other complaints. The patient was given lactulose. He was continued on all his home medications including propranolol, spironolactone, Lasix. He was kept nothing by mouth due to risk of aspiration due to mental status. The following day patient was a lot more awake and alert however, his ammonia level continued to be elevated. He was kept one more day. The patient was found to have thrombocytopenia which is likely secondary to his liver disease. He was started on Teflaro briefly for possible lower extremity cellulitis. However, the patient's legs did not appear to have any kind of infection but rather areas of excoriation where he stated he has been itching. By the third day, the patient's mentation had improved significantly. He is tolerating diet and his ammonia level has decreased. The patient was discharged home. DISCHARGE INSTRUCTIONS: He is to followup with primary care provider in 2-5 days. Diet low-sodium diet. Activity is as tolerated. DISCHARGE MEDICATIONS: Include: - vitamin B12 1000 mcg by mouth daily - folic acid 1 mg by mouth daily - Lasix 20 mg by mouth daily - lactulose 15 mL by mouth daily - Mag-Ox 800 mg by mouth daily - potassium chloride 10 mEq daily - propranolol 40 mg by mouth twice a day - spironolactone 50 mg by mouth daily - thiamine 100 mg by mouth daily DISCHARGE CONDITION: Stable. MTDD
--- NOTE | 2016-09-05 01:17 | EDDOCDS ---
Physician Documentation [facility] Name: Escobar Lara Age: 41 yrs Sex: Male : 1975 Arrival Date: 09/02/2016 Time: 11:28 Bed I5 / M5 Private MD: Florence Cai J Disposition: 09/02/16 19:12 Hospitalization ordered by Kym Chi for Inpatient Admission. Preliminary diagnosis are Headache - WITH ELEVATED AMMONIA LEVEL \T\ 131, NEGATIVE HEAD CT, Cellulitis of left lower limb, Cellulitis of right lower limb. - Bed requested for 5 Paige. - Status is Inpatient Admission. ld5 - Condition is Stable. - Problem is new. - Symptoms are unchanged. Historical: - Allergies: no known allergies; - Home Meds: 1. Atarax Oral 25 mg daily (Last dose: 09/01/2016) 2. folic acid 1 mg Oral tab 1 tab once daily (Last dose: 09/01/2016) 3. lactulose 10 gram/15 mL (15 mL) Oral soln 15 mL once daily for (picked up med but has not started yet) (Last dose: 09/01/2016) 4. Lasix 20 mg Oral tab 1 tab once daily (Last dose: 09/01/2016) 5. magnesium oxide 400 mg Oral tab 800 mg daily (Last dose: 09/01/2016) 6. potassium chloride 10 mEq Oral cpER 1 cap once daily for (picked up med but has not started yet) (Last dose: 09/01/2016) 7. propranolol 20 mg Oral tab 2 times per day (Last dose: 09/01/2016) 8. vitamin b12 daily (Last dose: 09/01/2016) - PMHx: Cirrhosis; esophageal varices; Hep C; - PSHx: Endoscopy, Lower; Colonoscopy; - Social history: Smoking status: Patient uses tobacco products, current every day smoker. No barriers to communication noted, The patient speaks fluent Sinhala, Speaks appropriately for age. - Family history: No immediate family members are acutely ill. - : The pt / caregiver states he / she is not on anticoagulants. Home medication list is obtained from the patient. - Exposure Risk Screening:: None identified. Vital Signs: 09/02 11:31 BP 131 / 72; Pulse 70; Resp 17; Temp 96.5(T); Pulse Ox 95% on R/A; Weight 88.45 kg / lr2 195 lbs (R); Height 6 ft. 2 in. (187.96 cm) (R); Pain 10/10; 18:28 BP 112 / 57; Pulse 64; Resp 16; Temp 97.4(O); Pulse Ox 96% on R/A; Pain 10/10; nb2 20:41 BP 128 / 68; Pulse 61; Resp 18; Temp 97.1(O); Pulse Ox 94% on R/A; Pain 10/10; kb5 23:57 BP 128 / 73; Pulse 66; Resp 18; Temp 97.9(O); Pulse Ox 95% on R/A; Pain 10/10; kb5 11:31 Body Mass Index 25.04 (88.45 kg, 187.96 cm) lr2 MDM: 12:35 Financial registration complete. lg 12:37 NS 0.9% 1000 ml IV at bolus once ordered. btw 12:37 IV Saline Lock ordered. btw 12:37 Undress patient appropriately for examination ordered. btw 12:37 Metoclopramide 20 mg IV at 80 mg/hr once over 15 mins ordered. btw 12:37 diphenhydrAMINE 50 mg IVP once ordered. btw 12:37 Amylase Ordered. EDMS 12:37 Basic Metabolic Profile Ordered. EDMS 12:37 CBC with Diff Ordered. EDMS 12:37 Lipase Ordered. EDMS 12:37 Liver Profile Ordered. EDMS 12:38 Urinalysis Ordered. EDMS 12:38 Urine Culture Ordered. EDMS 12:38 Ammonia (Little Green Tube on Ice, Not Pea Green) Ordered. EDMS 12:38 CT ABD & PELVIS: IV Contrast Only Ordered. EDMS 12:38 NOTHING BY MOUTH+DIET ordered. EDMS 12:39 Drug Eval Toxicology ED Only Ordered. EDMS 12:39 ETOH Ordered. EDMS 12:39 [facility] [place] [place] Payment Agreement was scanned into [employer] and attached to record. lg 14:54 Basic Metabolic Profile Reviewed. btw 14:54 CBC with Diff Reviewed. btw 14:54 Liver Profile Reviewed. btw 14:54 Ammonia (Little Green Tube on Ice, Not Pea Green) Reviewed. btw 14:54 Amylase Reviewed. btw 14:54 Lipase Reviewed. btw 14:54 ETOH Reviewed. btw 14:59 Lactulose Liquid 60 ml PO once ordered. btw 15:35 Urinalysis Reviewed. btw 15:35 Drug Eval Toxicology ED Only Reviewed. btw 15:35 CT ABD & PELVIS: IV Contrast Only Reviewed. btw 15:37 Gallbladder US Ordered. EDMS 16:36 CT Head Without Contrast Ordered. EDMS 16:37 BED REQUEST+ADM ordered. EDMS 20:07 Admission / Observation Status ordered. EDMS 20:07 NPO DIET ordered. EDMS 20:11 COMPLETE BLOOD COUNT Ordered. EDMS 20:11 BASIC METABOLIC PROFILE Ordered. EDMS 20:19 LYME DISEASE SCREEN Ordered. EDMS 20:35 Duplex, Ext LOWER veins, bilat Ordered. EDMS 20:53 T-Sheet-- Draft Copy was scanned into [employer] and attached to record. klr 21:46 oxyCODONE-acetaminophen 5 mg-325 mg 1 tabs PO once ordered. jo3 23:30 NS 0.9% 1000 ml IV at 80 mL/hr continuous ordered. ld5 Administered Medications: 13:18 Drug: diphenhydrAMINE 50 mg [diphenhydramine 50 mg/mL injection solution (1 mL)] Route: mb9 IVP; Site: left forearm; 13:19 Drug: NS 0.9% 1000 ml [sodium chloride 0.9 % intravenous solution] Route: IV; Rate: mb9 bolus; Site: left forearm; 13:19 Drug: Metoclopramide 20 mg [metoclopramide 5 mg/mL injection solution] Route: IV; Rate: mb9 80 mg/hr; Infused Over: 15 mins; Site: left antecubital; 15:21 Drug: Lactulose 60 ml [lactulose 20 gram/30 mL oral solution (60 mL)] Route: PO; ld5 21:50 Drug: oxyCODONE-acetaminophen 1 tabs [oxycodone-acetaminophen 5 mg-325 mg tablet (1 jo3 tabs)] Route: PO; 23:30 Follow up: Response: Confirmed pt not driving.; No significant change. ld5 23:30 Drug: NS 0.9% 1000 ml [sodium chloride 0.9 % intravenous solution] Route: IV; Rate: 80 ld5 mL/hr; Site: left hand; 23:46 Follow up: IV Status: Infusion continued upon admit ld5 Signatures: Dispatcher [employer] EDMS Staci Cardona, Reg Reg lg Fran, Allen, Barrel Lathe Operator Unit ml3 Noni Martinez,RN RN jo3 Jet Walls PA PA btw Dickerson, LauraRN RN komal5 Bhargavi Montilla,DANIEL RN dsf Zandra Hernandez PA-C PAMara dt4 Brannon Carroll,RN RN mb9 Monica Thrasher klcharmaine The chart was reviewed and I authenticate all verbal orders and agree with the evaluation and treatment provided.Corrections: (The following items were deleted from the chart) 20:18 19:57 C REACTIVE PROTEIN QUANTITATIV ordered. EDMS EDMS 20:18 20:09 URIC ACID ordered. EDMS EDMS 20:20 20:09 LYME DISEASE SCREEN ordered. EDMS EDMS Attachments: 12:39 [facility] [place] [place] Payment Agreement lg 20:53 T-Sheet-- Draft Copy klr Chart Complete MTDD
--- NOTE | 2016-09-05 01:17 | EDDOCDS ---
Physician Documentation [facility] Name: Escobar Lara Age: 41 yrs Sex: Male : 1975 Arrival Date: 09/02/2016 Time: 11:28 Bed I5 / M5 Private MD: Florence Cai J Disposition: 09/02/16 19:12 Hospitalization ordered by Kym Chi for Inpatient Admission. Preliminary diagnosis are Headache - WITH ELEVATED AMMONIA LEVEL \T\ 131, NEGATIVE HEAD CT, Cellulitis of left lower limb, Cellulitis of right lower limb. - Bed requested for 5 Paige. - Status is Inpatient Admission. ld5 - Condition is Stable. - Problem is new. - Symptoms are unchanged. Historical: - Allergies: no known allergies; - Home Meds: 1. Atarax Oral 25 mg daily (Last dose: 09/01/2016) 2. folic acid 1 mg Oral tab 1 tab once daily (Last dose: 09/01/2016) 3. lactulose 10 gram/15 mL (15 mL) Oral soln 15 mL once daily for (picked up med but has not started yet) (Last dose: 09/01/2016) 4. Lasix 20 mg Oral tab 1 tab once daily (Last dose: 09/01/2016) 5. magnesium oxide 400 mg Oral tab 800 mg daily (Last dose: 09/01/2016) 6. potassium chloride 10 mEq Oral cpER 1 cap once daily for (picked up med but has not started yet) (Last dose: 09/01/2016) 7. propranolol 20 mg Oral tab 2 times per day (Last dose: 09/01/2016) 8. vitamin b12 daily (Last dose: 09/01/2016) - PMHx: Cirrhosis; esophageal varices; Hep C; - PSHx: Endoscopy, Lower; Colonoscopy; - Social history: Smoking status: Patient uses tobacco products, current every day smoker. No barriers to communication noted, The patient speaks fluent Indonesian, Speaks appropriately for age. - Family history: No immediate family members are acutely ill. - : The pt / caregiver states he / she is not on anticoagulants. Home medication list is obtained from the patient. - Exposure Risk Screening:: None identified. Vital Signs: 09/02 11:31 BP 131 / 72; Pulse 70; Resp 17; Temp 96.5(T); Pulse Ox 95% on R/A; Weight 88.45 kg / lr2 195 lbs (R); Height 6 ft. 2 in. (187.96 cm) (R); Pain 10/10; 18:28 BP 112 / 57; Pulse 64; Resp 16; Temp 97.4(O); Pulse Ox 96% on R/A; Pain 10/10; nb2 20:41 BP 128 / 68; Pulse 61; Resp 18; Temp 97.1(O); Pulse Ox 94% on R/A; Pain 10/10; kb5 23:57 BP 128 / 73; Pulse 66; Resp 18; Temp 97.9(O); Pulse Ox 95% on R/A; Pain 10/10; kb5 11:31 Body Mass Index 25.04 (88.45 kg, 187.96 cm) lr2 MDM: 12:35 Financial registration complete. lg 12:37 NS 0.9% 1000 ml IV at bolus once ordered. btw 12:37 IV Saline Lock ordered. btw 12:37 Undress patient appropriately for examination ordered. btw 12:37 Metoclopramide 20 mg IV at 80 mg/hr once over 15 mins ordered. btw 12:37 diphenhydrAMINE 50 mg IVP once ordered. btw 12:37 Amylase Ordered. EDMS 12:37 Basic Metabolic Profile Ordered. EDMS 12:37 CBC with Diff Ordered. EDMS 12:37 Lipase Ordered. EDMS 12:37 Liver Profile Ordered. EDMS 12:38 Urinalysis Ordered. EDMS 12:38 Urine Culture Ordered. EDMS 12:38 Ammonia ([place] Tube on Ice, Not Pea Green) Ordered. EDMS 12:38 CT ABD & PELVIS: IV Contrast Only Ordered. EDMS 12:38 NOTHING BY MOUTH+DIET ordered. EDMS 12:39 Drug Eval Toxicology ED Only Ordered. EDMS 12:39 ETOH Ordered. EDMS 12:39 [facility] Payment Agreement was scanned into [employer] and attached to record. lg 14:54 Basic Metabolic Profile Reviewed. btw 14:54 CBC with Diff Reviewed. btw 14:54 Liver Profile Reviewed. btw 14:54 Ammonia ([place] Green Tube on Ice, Not Pea Green) Reviewed. btw 14:54 Amylase Reviewed. btw 14:54 Lipase Reviewed. btw 14:54 ETOH Reviewed. btw 14:59 Lactulose Liquid 60 ml PO once ordered. btw 15:35 Urinalysis Reviewed. btw 15:35 Drug Eval Toxicology ED Only Reviewed. btw 15:35 CT ABD & PELVIS: IV Contrast Only Reviewed. btw 15:37 Gallbladder US Ordered. EDMS 16:36 CT Head Without Contrast Ordered. EDMS 16:37 BED REQUEST+ADM ordered. EDMS 20:07 Admission / Observation Status ordered. EDMS 20:07 NPO DIET ordered. EDMS 20:11 COMPLETE BLOOD COUNT Ordered. EDMS 20:11 BASIC METABOLIC PROFILE Ordered. EDMS 20:19 LYME DISEASE SCREEN Ordered. EDMS 20:35 Duplex, Ext LOWER veins, bilat Ordered. EDMS 20:53 T-Sheet-- Draft Copy was scanned into [employer] and attached to record. klr 21:46 oxyCODONE-acetaminophen 5 mg-325 mg 1 tabs PO once ordered. jo3 23:30 NS 0.9% 1000 ml IV at 80 mL/hr continuous ordered. ld5 Administered Medications: 13:18 Drug: diphenhydrAMINE 50 mg [diphenhydramine 50 mg/mL injection solution (1 mL)] Route: mb9 IVP; Site: left forearm; 13:19 Drug: NS 0.9% 1000 ml [sodium chloride 0.9 % intravenous solution] Route: IV; Rate: mb9 bolus; Site: left forearm; 13:19 Drug: Metoclopramide 20 mg [metoclopramide 5 mg/mL injection solution] Route: IV; Rate: mb9 80 mg/hr; Infused Over: 15 mins; Site: left antecubital; 15:21 Drug: Lactulose 60 ml [lactulose 20 gram/30 mL oral solution (60 mL)] Route: PO; ld5 21:50 Drug: oxyCODONE-acetaminophen 1 tabs [oxycodone-acetaminophen 5 mg-325 mg tablet (1 jo3 tabs)] Route: PO; 23:30 Follow up: Response: Confirmed pt not driving.; No significant change. ld5 23:30 Drug: NS 0.9% 1000 ml [sodium chloride 0.9 % intravenous solution] Route: IV; Rate: 80 ld5 mL/hr; Site: left hand; 23:46 Follow up: IV Status: Infusion continued upon admit ld5 Signatures: Dispatcher [employer] EDMS Staci Cardona, Reg Reg lg Fran, Allen, Contract Writer Unit ml3 Noni Martinez,RN RN jo3 Jet Walls PA PA btw Dickerson, LauraRN RN komal5 Bhargavi Montilla,DANIEL RN dsf Zandra Hernandez PA-C PAMara dt4 Brannon Carroll,RN RN mb9 Monica Thrasher klcharmaine The chart was reviewed and I authenticate all verbal orders and agree with the evaluation and treatment provided.Corrections: (The following items were deleted from the chart) 20:18 19:57 C REACTIVE PROTEIN QUANTITATIV ordered. EDMS EDMS 20:18 20:09 URIC ACID ordered. EDMS EDMS 20:20 20:09 LYME DISEASE SCREEN ordered. EDMS EDMS Attachments: 12:39 [facility] Payment Agreement lg 20:53 T-Sheet-- Draft Copy klr Chart Complete MTDD
--- NOTE | 2016-09-05 01:18 | EDDOCDS ---
Nurse's Notes [facility] Name: Escobar Lara Age: 41 yrs Sex: Male : 1975 Arrival Date: 09/02/2016 Time: 11:28 Bed I5 / M5 Private MD: Florence Cai J Diagnosis: Headache-WITH ELEVATED AMMONIA LEVEL \\T\\ 131, NEGATIVE HEAD CT;Cellulitis of left lower limb;Cellulitis of right lower limb Presentation: 09/02 11:34 Presenting complaint: Patient states: bilateral leg pain, upper abdominal pain, dsf bilateral lower leg swelling and low back pain. Adult Sepsis Screening: The patient does not have new or worsening altered mentation. Patient's respiratory rate is less than 22. Systolic blood pressure is greater than 100. Patient has a qSOFA score of 0- Negative Sepsis Screen. Suicide/Homicide risk assessment- the patient denies having any suicidal and/or homicidal ideations and does not present with any other emotional, behavioral or mental health complaints. Status: Patient is not a office services representative or dependent. Transition of care: patient was not received from another setting of care. 11:34 Acuity: LINSEY Level 3 dsf 11:34 Method Of Arrival: Walkin/Carried/Asstd dsf Triage Assessment: 11:37 General: Appears in no apparent distress, Behavior is flat, slow speech . Reports dsf fatigue for. Pain: Location: right leg and left leg, upper abdomen and low back Pain currently is 10 out of 10 on a pain scale. Quality of pain is described as sharp. HIV screening NA for this visit Offered previously. Cardiovascular: Reports bilateral lower leg swelling. GI: Reports upper abdominal pain, nausea. Historical: - Allergies: no known allergies; - Home Meds: 1. Atarax Oral 25 mg daily (Last dose: 09/01/2016) 2. folic acid 1 mg Oral tab 1 tab once daily (Last dose: 09/01/2016) 3. lactulose 10 gram/15 mL (15 mL) Oral soln 15 mL once daily for (picked up med but has not started yet) (Last dose: 09/01/2016) 4. Lasix 20 mg Oral tab 1 tab once daily (Last dose: 09/01/2016) 5. magnesium oxide 400 mg Oral tab 800 mg daily (Last dose: 09/01/2016) 6. potassium chloride 10 mEq Oral cpER 1 cap once daily for (picked up med but has not started yet) (Last dose: 09/01/2016) 7. propranolol 20 mg Oral tab 2 times per day (Last dose: 09/01/2016) 8. vitamin b12 daily (Last dose: 09/01/2016) - PMHx: Cirrhosis; esophageal varices; Hep C; - PSHx: Endoscopy, Lower; Colonoscopy; - Social history: Smoking status: Patient uses tobacco products, current every day smoker. No barriers to communication noted, The patient speaks fluent Wallisian, Speaks appropriately for age. - Family history: No immediate family members are acutely ill. - : The pt / caregiver states he / she is not on anticoagulants. Home medication list is obtained from the patient. - Exposure Risk Screening:: None identified. Screenin:01 Screening information is obtained from the patient. Primary language is Wallisian. Fall jam1 risk: No risks identified. Assistance ADL's: requires no assistance with activities of daily living. Abuse/DV Screen: The patient / caregiver reports he/she is: not in a situation that causes fear, pain or injury. Nutritional screening: No deficits noted. Exposure Risk Screening: None identified. Advance Directives: Currently, there is no health care proxy. There is no active DNR order. There is no living will. There is no Power of Designer Architect. Advance directive information has not previously been placed in an [facility] medical record. Further advance directive information is declined. home support is adequate. Assessment: 13:20 General: Appears in no apparent distress, Behavior is cooperative, drowsy, mb9 inappropriate for age. Pain: Location: right leg and left leg Pain currently is 5 out of 10 on a pain scale. Neurological: Level of Consciousness is alert, lethargic, Oriented to person, place, time, Speech is slurred, pt appears to fall asleep when not engaged in conversation. pt states, "I'm just really tired. I haven't slept in a while.". . Respiratory: Airway is patent Respiratory effort is even, unlabored. Derm: Skin is red, on right novak, anterior aspect of right ankle, left novak and anterior aspect of left ankle pt appears to have pin size holes along the veins of his left a/c. when asked about them pt states, "I do drugs. No I'm just kiddin. I was hear a week ago and they took a bunch of blood samples.". 15:11 General: Appears to be sleeping. Behavior is cooperative, drowsy. Respiratory: Airway mb9 is patent Respiratory effort is even, unlabored. 15:21 General: Pt very drowsy. Able to tolerate medication. Friend at bedside. Will continue ld5 to monitor. 17:05 General: Pt returned from radiology remains very drowsy ambulatory to bathroom.. dls 17:55 Reassessment: Patient states symptoms have not improved. General: Appears in no mb9 apparent distress, Behavior is cooperative. Respiratory: Airway is compromised Respiratory effort is even, unlabored. 19:00 General: Dr Chi has yet to return page. Hospitalist service paged again at mb9 . . 19:18 Reassessment: Patient appears in no apparent distress at this time. Patient states mb9 symptoms have improved. General: Appears in no apparent distress, to be sleeping. Respiratory: Airway is patent Respiratory effort is even, unlabored. 20:44 Reassessment: Patient appears in no apparent distress at this time. General: Appears to mb9 be sleeping. Behavior is cooperative. Respiratory: Airway is patent Respiratory effort is even, unlabored. 21:50 General: Appears in no apparent distress, Behavior is cooperative, drowsy. General: jo3 Administered Percocet at this time for reported 10/10 pain. Will monitor for effectiveness . Neurological: Level of Consciousness is alert, lethargic, Oriented to person, place, time. Respiratory: Airway is patent Respiratory effort is even, unlabored. Derm: Skin is pink, warm & dry. 22:58 General: Appears to be sleeping. Respiratory: Airway is patent Respiratory effort is mb9 even, unlabored. 23:30 General: Pt laying quietly in bed watching TV. SO at bedside. Fluids started per ld5 admission orders. Pt and SO updated on bed status. Will continue to monitor. Vital Signs: 11:31 BP 131 / 72; Pulse 70; Resp 17; Temp 96.5(T); Pulse Ox 95% on R/A; Weight 88.45 kg (R); lr2 Height 6 ft. 2 in. (187.96 cm) (R); Pain 10/10; 18:28 BP 112 / 57; Pulse 64; Resp 16; Temp 97.4(O); Pulse Ox 96% on R/A; Pain 10/10; nb2 20:41 BP 128 / 68; Pulse 61; Resp 18; Temp 97.1(O); Pulse Ox 94% on R/A; Pain 10/10; kb5 23:57 BP 128 / 73; Pulse 66; Resp 18; Temp 97.9(O); Pulse Ox 95% on R/A; Pain 10/10; kb5 11:31 Body Mass Index 25.04 (88.45 kg, 187.96 cm) lr2 Vitals: 11:28 RN notified that patient meets Red Flag criteria. lr2 11:31 Log In Time: September 02, 2016 at 11:28. lr2 ED Course: 11:30 Patient visited by Rachael Lofton. lr2 11:30 Patient moved to Waiting lr2 11:31 Florence Cai is Private Physician. lr2 11:31 Patient moved to Pre RCE lr2 11:35 Triage Initiated dsf 11:49 Patient moved to Triage 2 srm 12:30 Jet Walls PA is PHCP. btw 12:30 Henrietta Stovall MD is Attending Physician. btw 12:32 Patient visited by Jet Walls PA. btw 12:39 [facility] Payment Agreement was scanned into [employer] and attached to record. lg 12:41 Patient moved to I1 / M1 srm 12:42 Patient moved to I5 / M5 dls 13:01 Pt greeted and oriented to ED. Patient advised of names of staff involved in care, jam1 location of call harrell, wait times and NPO status. Patient has correct armband on for positive identification. Placed in gown. Bed in low position. Call light in reach. Side rails up X 1. Door closed. 13:18 ETOH Sent. mb9 13:19 Ammonia (Little Green Tube on Ice, Not Pea Green) Sent. mb9 13:19 Amylase Sent. mb9 13:19 Basic Metabolic Profile Sent. mb9 13:19 CBC with Diff Sent. mb9 13:19 Lipase Sent. mb9 13:19 Liver Profile Sent. mb9 13:20 Patient visited by Brannon Carroll RN. mb9 13:20 The patient / caregiver is instructed regarding the plan of care and ED course. pt mb9 advised to remain NPO. 13:20 Inserted saline lock: 18 gauge in left forearm and blood collected. The patient mb9 tolerated the procedure well. 14:33 Patient visited by Flaquita Gross. nb2 14:58 CT ABD & PELVIS: IV Contrast Only Returned. EDMS 15:11 Patient visited by Brannon Carroll,DANIEL. mb9 15:22 Patient visited by Rachael Shabazz,DANIEL. ld5 16:02 PHCP role handed off by Jet Walls PA dt4 16:02 Zandra Hernandez PA-C is PHCP. dt4 16:32 Patient moved to Ultrasound br3 17:21 Diet: Patient given water. nb2 17:22 Patient visited by Flaquita Gross. nb2 17:31 Gallbladder US Returned. EDMS 17:45 Patient moved to I5 / M5 mb9 17:56 Patient visited by Zandra Hernandez PA-C. dt4 18:23 CT Head Without Contrast Returned. EDMS 18:28 Patient visited by Flaquita Gross. nb2 19:06 Patient visited by Kyaw Morales PCA. kb5 19:11 Kym Chi is Hospitalizing Provider. dt4 20:00 Patient visited by Kyaw Morales PCA. kb5 20:41 Patient visited by Kyaw Morales PCA. kb5 20:44 No procedures done that require assistance. mb9 20:53 T-Sheet-- Draft Copy was scanned into [employer] and attached to record. klr 20:54 Patient moved to Ultrasound hgl 21:14 Patient moved to I5 / M5 hgl 21:21 Patient visited by Kyaw Morales PCA. kb5 22:13 Patient visited by Kyaw Morales PCA. kb5 23:20 Patient visited by Kyaw Morales PCA. kb5 23:31 Patient visited by Noni Martinez RN. jo3 23:31 Patient visited by Rachael Shabazz,DANIEL. ld5 23:57 Patient visited by yKaw Morales PCA. kb5 Administered Medications: 13:18 Drug: diphenhydrAMINE 50 mg [diphenhydramine 50 mg/mL injection solution (1 mL)] Route: mb9 IVP; Site: left forearm; 13:19 Drug: NS 0.9% 1000 ml [sodium chloride 0.9 % intravenous solution] Route: IV; Rate: mb9 bolus; Site: left forearm; 13:19 Drug: Metoclopramide 20 mg [metoclopramide 5 mg/mL injection solution] Route: IV; Rate: mb9 80 mg/hr; Infused Over: 15 mins; Site: left antecubital; 15:21 Drug: Lactulose 60 ml [lactulose 20 gram/30 mL oral solution (60 mL)] Route: PO; ld5 21:50 Drug: oxyCODONE-acetaminophen 1 tabs [oxycodone-acetaminophen 5 mg-325 mg tablet (1 jo3 tabs)] Route: PO; 23:30 Follow up: Response: Confirmed pt not driving.; No significant change. ld5 23:30 Drug: NS 0.9% 1000 ml [sodium chloride 0.9 % intravenous solution] Route: IV; Rate: 80 ld5 mL/hr; Site: left hand; 23:46 Follow up: IV Status: Infusion continued upon admit ld5 Output: 15:26 Urine: 1000.00ml (Voided); Total: 1000.00ml. srm Order Results: Lab Order: Amylase; SPEC'M 09/02/16 13:14 Test: AMYLASE; Value: 30; Range: 25-115; Units: U/L; Status: F Lab Order: Basic Metabolic Profile; SPEC'M 09/02/16 13:14 Test: GLUCOSE, FASTING; Value: 118; Range: 70-105; Abnormal: Above high normal; Units: MG/DL; Status: F Test: BLOOD UREA NITROGEN; Value: 7; Range: 7-18; Units: MG/DL; Status: F Test: CREATININE FOR GFR; Value: 0.73; Range: 0.70-1.30; Units: MG/DL; Status: F Test: GLOMERULAR FILTRATION RATE; Value: > 60.0; Range: >60; Status: F Test: SODIUM LEVEL; Value: 134; Range: 136-145; Abnormal: Below low normal; Units: MEQ/L; Status: F Test: POTASSIUM SERUM; Value: 3.8; Range: 3.5-5.1; Units: MEQ/L; Status: F Test: CHLORIDE LEVEL; Value: 95; Range: 98-107; Abnormal: Below low normal; Units: MEQ/L; Status: F Test: CARBON DIOXIDE LEVEL; Value: 32; Range: 21-32; Units: MEQ/L; Status: F Test: ANION GAP; Value: 7; Range: 8-16; Abnormal: Below low normal; Units: MEQ/L; Status: F Test: CALCIUM LEVEL; Value: 8.4; Range: 8.5-10.1; Abnormal: Below low normal; Units: MG/DL; Status: F Test Note: ; Units are mL/min/1.73 m2 Chronic Kidney Disease Staging per NKF: Stage I & II GFR >=60 Normal to Mildly Decreased Stage III GFR 30-59 Moderately Decreased Stage IV GFR 15-29 Severely Decreased Stage V GFR <15 Very Little GFR Left ESRD GFR <15 on LEASE OPERATOR Lab Order: CBC with Diff; SPEC'M 09/02/16 13:14 Test: WHITE BLOOD COUNT; Value: 6.5; Range: 4.0-10.0; Units: K/mm3; Status: F Test: RED BLOOD COUNT; Value: 3.55; Range: 4.30-6.10; Abnormal: Below low normal; Units: M/mm3; Status: F Test: HEMOGLOBIN; Value: 12.1; Range: 14.0-18.0; Abnormal: Below low normal; Units: g/dl; Status: F Test: HEMATOCRIT; Value: 35.2; Range: 42.0-52.0; Abnormal: Below low normal; Units: %; Status: F Test: MEAN CORPUSCULAR VOLUME; Value: 99.1; Range: 80.0-96.0; Abnormal: Above high normal; Units: fl; Status: F Test: MEAN CORPUSCULAR HEMOGLOBIN; Value: 34.0; Range: 27.0-33.0; Abnormal: Above high normal; Units: pg; Status: F Test: MEAN CORPUSCULAR HGB CONC; Value: 34.3; Range: 32.0-36.5; Units: g/dl; Status: F Test: RED CELL DISTRIBUTION WIDTH; Value: 16.1; Range: 11.5-14.5; Abnormal: Above high normal; Units: %; Status: F Test: PLATELET COUNT, AUTOMATED; Value: 40; Range: 150-450; Abnormal: Below low normal; Units: k/mm3; Status: F Test: NEUTROPHILS %; Value: 67.9; Range: 36.0-66.0; Abnormal: Above high normal; Units: %; Status: F Test: LYMPH %; Value: 17.7; Range: 24.0-44.0; Abnormal: Below low normal; Units: %; Status: F Test: MONO %; Value: 6.9; Range: 0.0-5.0; Abnormal: Above high normal; Units: %; Status: F Test: EOS %; Value: 3.5; Range: 0.0-3.0; Abnormal: Above high normal; Units: %; Status: F Test: BASO %; Value: 0.3; Range: 0.0-1.0; Units: %; Status: F Test: LARGE UNSTAINED CELL %; Value: 3.7; Range: 0.0-4.0; Units: %; Status: F Test: NEUTROPHILS #; Value: 4.4; Range: 1.8-7.7; Units: K/mm3; Status: F Test: LYMPH #; Value: 1.4; Range: 1.5-4.5; Abnormal: Below low normal; Units: K/mm3; Status: F Test: MONO #; Value: 0.5; Range: 0.0-0.8; Units: K/mm3; Status: F Test: EOS #; Value: 0.2; Range: 0.0-0.50; Units: K/mm3; Status: F Test: BASO #; Value: 0.0; Range: 0.0-0.2; Units: K/mm3; Status: F Test: LARGE UNSTAINED CELL #; Value: 0.2; Range: 0.0-0.4; Units: K/mm3; Status: F Test Note: ; Results are consistent with previous results. Lab Order: Lipase; SPEC'M 09/02/16 13:14 Test: LIPASE; Value: 151; Range: 73-393; Units: U/L; Status: F Lab Order: Liver Profile; SPEC'M 09/02/16 13:14 Test: AST/SGOT; Value: 112; Range: 15-37; Abnormal: Above high normal; Units: U/L; Status: F Test: ALT/SGPT; Value: 54; Range: 12-78; Units: U/L; Status: F Test: ALKALINE PHOSPHATASE; Value: 124; Range: 45-117; Abnormal: Above high normal; Units: U/L; Status: F Test: BILIRUBIN,TOTAL; Value: 3.7; Range: 0.2-1.0; Abnormal: Above high normal; Units: MG/DL; Status: F Test: BILIRUBIN,DIRECT; Value: 1.7; Range: 0.0-0.2; Abnormal: Above high normal; Units: MG/DL; Status: F Test: TOTAL PROTEIN; Value: 7.1; Range: 6.4-8.2; Units: GM/DL; Status: F Test: ALBUMIN; Value: 3.1; Range: 3.2-5.2; Abnormal: Below low normal; Units: GM/DL; Status: F Test: ALBUMIN/GLOBULIN RATIO; Value: 0.78; Range: 1.00-1.93; Abnormal: Below low normal; Status: F Lab Order: Urinalysis; SPEC'M 09/02/16 15:05 Test: APPEARANCE, URINE; Value: CLEAR; Range: CLEAR; Status: F Test: COLOR, URINE; Value: YELLOW; Range: YELLOW; Status: F Test: PH,URINE; Value: 6.0; Range: 5.0-9.0; Units: UNITS; Status: F Test: SPECIFIC GRAVITY URINE AUTO; Value: 1.012; Range: 1.002-1.035; Status: F Test: PROTEIN, URINE AUTO; Value: NEGATIVE; Range: NEGATIVE; Units: mg/dL; Status: F Test: GLUCOSE, URINE (UA) AUTO; Value: NEGATIVE; Range: NEGATIVE; Units: mg/dL; Status: F Test: KETONE, URINE AUTO; Value: NEGATIVE; Range: NEGATIVE; Units: mg/dL; Status: F Test: UROBILINOGEN, URINE AUTO; Value: 4.0; Range: 0.0-2.0; Abnormal: Above high normal; Units: mg/dL; Status: F Test: BILIRUBIN, URINE AUTO; Value: NEGATIVE; Range: NEGATIVE; Status: F Test: NITRITE, URINE AUTO; Value: NEGATIVE; Range: NEGATIVE; Status: F Test: LEUKOCYTE ESTERASE, URINE AUTO; Value: NEGATIVE; Range: NEGATIVE; Status: F Test: BLOOD, URINE BLOOD; Value: 1+; Range: NEGATIVE; Abnormal: Above high normal; Status: F Test: WBC, URINE AUTO; Value: 0; Range: 0-3; Units: /HPF; Status: F Test: RBC, URINE AUTO; Value: 4; Range: 0-3; Abnormal: Above high normal; Units: /HPF; Status: F Test: BACTERIA, URINE AUTO; Value: NEGATIVE; Range: NEGATIVE; Status: F Test: SQUAMOUS EPITHELIAL CELL UR AU; Value: 0; Range: 0-6; Units: /HPF; Status: F Test: HYALINE CAST, URINE AUTO; Value: 0; Range: 0-1; Units: /LPF; Status: F Lab Order: Ammonia ([place] Tube on Ice, Not Pea Green); SPEC'M 09/02/16 13:14 Test: AMMONIA; Value: 131; Range: <32; Abnormal: Above high normal; Units: uMOL/L; Status: F Lab Order: Drug Eval Toxicology ED Only; SPEC'M 09/02/16 15:05 Test: AMPHETAMINES LEVEL URINE; Value: POSITIVE; Range: NEGATIVE; Abnormal: Above high normal; Status: F Test: BARBITURATES URINE; Value: NEGATIVE; Range: NEGATIVE; Status: F Test: BENZODIAZEPINES URINE; Value: NEGATIVE; Range: NEGATIVE; Status: F Test: CANNABINOIDS URINE; Value: POSITIVE; Range: NEGATIVE; Abnormal: Above high normal; Status: F Test: COCAINE METABOLITE URINE; Value: NEGATIVE; Range: NEGATIVE; Status: F Test: METHADONE URINE; Value: NEGATIVE; Range: NEGATIVE; Status: F Test: OPIATES URINE; Value: NEGATIVE; Range: NEGATIVE; Status: F Test: TRICYCLIC ANTIDEPRESS URINE; Value: NEGATIVE; Range: NEGATIVE; Status: F Test Note: ; FALSE POSITIVE RESULTS CAN BE CAUSED BY THE USE OF PANTOPRAZOLE (PROTONIX). Lab Order: ETOH; SPEC'M 09/02/16 13:14 Test: ETHYL ALCOHOL (ETHANOL); Value: < 0.003; Range: 0.000-0.010; Units: %; Status: F Lab Order: URIC ACID; SPEC'M 09/02/16 13:14 Test: URIC ACID; Value: 5.2; Range: 3.5-7.2; Units: MG/DL; Status: F Lab Order: C REACTIVE PROTEIN QUANTITATIV; SPEC'M 09/02/16 13:14 Test: C REACTIVE PROTEIN QUANTITATIV; Value: 1.64; Range: 0.00-0.30; Abnormal: Above high normal; Units: MG/DL; Status: F Radiology Order: CT ABD & PELVIS: IV Contrast Only Test: CT ABD & PELVIS: IV Contrast Only REASON FOR EXAMINATION: Abdomen Pain; Clinical: Lower abdominal pain.; ; Technique: Axial contrast enhanced images from the lung bases to the pubic; symphysis using 100 ml Isovue through 70 intravenous contrast material with; coronal and sagittal re-formations.; ; Comparison: 07/26/2016.; ; Findings:; Cirrhosis with hepatic splenomegaly and portal venous hypertension is appreciated; including portosystemic shunting throughout the abdomen and pelvis and; paraesophageal varices.; ; No focal hepatic or splenic lesions are identified. Pancreas, gallbladder,; bilateral adrenal glands and kidneys are normal. The enteric system is without; obstruction or obvious acute inflammatory process pelvis demonstrates normal; bladder and age appropriate prostate/seminal vesicles. No ascites. No free air.; Musculoskeletal structures are intact. Lung bases clear.; ; Impression:; Continued stable findings related to cirrhosis and portal venous hypertension.; No acute intra-abdominal or pelvic pathology appreciated.; ; ; ; ; Signed by; Gt Villar MD 09/02/2016 02:29 P; Radiology Order: Gallbladder US Test: Gallbladder US REASON FOR EXAMINATION: elevated bilirubin;Biliary Colic/RUQ pain; Clinical: Right upper quadrant pain with elevated bilirubin levels.; ; Technique: Real time rodriges scale ultrasound examination using curved array; transducer.; ; Comparison: 06/29/2016.; ; Findings:; The liver is heterogeneous and again consistent with known cirrhosis and; hepatocellular disease. Pancreas is incompletely evaluated. The gallbladder; demonstrates chronic wall thickening without gallstones, pericholecystic fluid,; or biliary ductal dilatation. No sonographic Blankenship's sign was elicited. Common; bile duct measures 4 mm diameter. The right kidney is normal in reniform shape; without hydronephrosis and measures 11.0 x 6.2 x 7.2 cm. No ascites in the right; upper quadrant.; ; Impression:; Gallbladder wall thickening and hepatocellular disease consistent with known; cirrhosis. No acute findings.; ; ; Signed by; Gt Villar MD 09/02/2016 05:14 P; Radiology Order: CT Head Without Contrast Test: CT Head Without Contrast REASON FOR EXAMINATION: high ammonia level; Clinical: Headache. Elevated ammonia levels.; ; Comparison: 08/08/2016 .; ; Findings:; The ventricles, sulci, and cisterns are normal in position and appearance.; Rodriges-white differentiation is maintained. No acute intracranial hemorrhage,; mass/mass effect, pathology or trauma/injury. No evidence for acute infarction.; No extra-axial fluid collection. Calvarium is intact. Paranasal sinuses and; mastoid air cells are clear.; ; Impression:; Normal noncontrast head CT.; No evidence for acute intracranial pathology or trauma/injury.; ; ; Signed by; Gt Villar MD 09/02/2016 05:36 P; Outcome: 19:12 Decision to Hospitalize by Provider. dt4 20:44 Discharge Assessment: Patient awake, alert and oriented x 3. No cognitive and/or mb9 functional deficits noted. Patient verbalized understanding of disposition instructions. patient administered narcotics - no. The following High Risk Discharge criteria are identified: None. Admitted to Med/Surg accompanied by nurse. Condition: good Condition: stable Condition: improved. CT Study completed. Ultrasound Study completed. Property :Personal belongings accompany Pt. 09/03 00:16 Patient left the ED. ld5 Signatures: Dispatcher [employer] EDMS Steffi Alford RN Ksenia Goldstein RN RN dls Murphy, Jane, ENTERPRISE IN[employer]RASTRU[employer]URE ARCHITECT ENTERPRISE INFRASTRUCTURE ARCHITECT jam1 Staci Cardona, Reg Reg lg Noni Martinez RN RN jo3 Kyaw Morales, ENTERPRISE INFRASTRUCTURE ARCHITECT ENTERPRISE INFRASTRUCTURE ARCHITECT kb5 Belkys Null br3 Jet Walls PA PA btw Dickerson, Laura, RN RN ld5 Bhargavi Montilla RN RN dsf Janet, Bobby hgl Zandra Hernandez PA-C PAMara dt4 Brannon CarrollRN RN mb9 Monica Thrasher Nicole nb2 Ross, Laura lr2 Corrections: (The following items were deleted from the chart) 09/02 11:38 11:37 General: Appears in no apparent distress, Behavior is flat, slow speech . dsf dsf Chart Complete MTDD
[2016-09-06 00:06] LABS: Lyme Disease IgG/IgM Antibodie <0.91 ISR (0.00-0.90); Lyme Disease IgM Ab Quantitati <0.80 index (0.00-0.79)
== END 2016-09-04 09:50 | disposition home or self-care (01) | DRG 280 ==
LOC: M ED 11:28 → M ED INP 20:03 → M MS5PR 09-03 00:10
PROVIDERS: ADMIT Internal Medicine; ATTEND Internal Medicine
DX: K72.10 Chronic hepatic failure without coma (principal); G93.41 Metabolic encephalopathy; D68.4 Acquired coagulation factor deficiency; K76.6 Portal hypertension; D69.6 Thrombocytopenia, unspecified; L03.115 Cellulitis of right lower limb; I85.10 Secondary esophageal varices without bleeding; K21.9 Gastro-esophageal reflux disease without esophagitis; F17.210 Nicotine dependence, cigarettes, uncomplicated; G43.909 Migraine, unspecified, not intractable, without status migrainosus; B18.2 Chronic viral hepatitis C; D63.8 Anemia in other chronic diseases classified elsewhere; F10.10 Alcohol abuse, uncomplicated; Z79.899 Other long term (current) drug therapy; K70.30 Alcoholic cirrhosis of liver without ascites

== ENCOUNTER 2016-09-08 15:00 | Outpatient (RCR) | payer MEDICAID ==
[~2016-09-08 15:00] MED LIST changes: +PROP40TA PO
== END 2016-09-12 ==
LOC: M OUTALCOH 15:00
PROVIDERS: ATTEND Psychiatry & Neurology Psychiatry
DX: F10.20 Alcohol dependence, uncomplicated (principal); F11.20 Opioid dependence, uncomplicated; F12.20 Cannabis dependence, uncomplicated; F17.200 Nicotine dependence, unspecified, uncomplicated

== ENCOUNTER 2016-10-05 16:56 | Emergency (ER) | payer OTHER ==
[~2016-10-05] VITALS: Ht 188 cm; Wt 86.2 kg
[2016-10-05] MEDS ORDERED: NADO20TA PO (17:16)
[2016-10-05] MEDS ORDERED: LACT10SO29 PO (17:16)
[2016-10-05] MEDS ORDERED: OMEP10CASR PO (17:16)
[2016-10-05] MEDS ORDERED: BACT800T5 PO (19:03)
[2016-10-05] MEDS ORDERED: NORCOTAB PO (19:03)
[2016-10-05 19:37] VITALS: BP 120/76
== END 2016-10-05 19:41 | disposition home or self-care (01) ==
LOC: M ED 18:38
DX: L03.115 Cellulitis of right lower limb (principal); I10 Essential (primary) hypertension; G89.29 Other chronic pain; F17.200 Nicotine dependence, unspecified, uncomplicated; Z79.899 Other long term (current) drug therapy

== ENCOUNTER 2016-10-12 10:00 | Outpatient (RCR) | payer OTHER ==
[~2016-10-12 10:00] MED LIST changes: +BACT800T5 PO; +NORCOTAB PO; +OMEP10CASR PO
== END 2016-10-13 ==
LOC: M OUTALCOH 10:00
PROVIDERS: ATTEND Psychiatry & Neurology Psychiatry
DX: F10.20 Alcohol dependence, uncomplicated (principal); F11.20 Opioid dependence, uncomplicated; F12.20 Cannabis dependence, uncomplicated; F17.200 Nicotine dependence, unspecified, uncomplicated

== ENCOUNTER 2016-10-18 13:19 | Emergency (ER) | payer OTHER ==
[~2016-10-18] VITALS: Ht 188 cm; Wt 86.2 kg
[2016-10-18] MEDS ORDERED: GI COCKTAIL 50ML BTL(HYOSCYAMINE/MAALOX/LIDOCAINE VISCOUS)(1:3:1) PO ONE (13:45)
--- NOTE | 2016-10-18 14:36 | REP ---
CHEST, TWO VIEWS: COMPARISON: 08/08/2016 There is no evidence of acute infiltrate. No pleural effusion is seen. The heart is normal in size. The mediastinal silhouette is unremarkable. The visualized osseous structures are intact. IMPRESSION: No acute pulmonary disease. Signed by Axel Rodriges MD 10/18/2016 05:40 P
[2016-10-18 14:38] VITALS: BP 133/82
[2016-10-18] MEDS ORDERED: ZANT300T PO (14:38)
[2016-10-18] MEDS ORDERED: TESS100C PO (14:38)
== END 2016-10-18 14:54 | disposition home or self-care (01) ==
LOC: M ED 14:04
DX: R05 Cough (principal)

== ENCOUNTER 2016-10-25 14:49 | Emergency (ER) | payer OTHER ==
[~2016-10-25] VITALS: Ht 182.9 cm; Wt 86.2 kg
[~2016-10-25 14:49] MED LIST changes: +TESS100C PO; +ZANT300T PO
[2016-10-25] MEDS ORDERED: MORPHINE 4 MG/ML 1ML SYRINGE IV ONE (17:00)
[2016-10-25] MEDS ORDERED: NS 1,000 ML IV ONE (17:00)
[2016-10-25] MEDS ORDERED: MORPHINE 2 MG/ML 1ML SYRINGE IV ONE (17:15)
[2016-10-25 17:36] LABS: INR 1.81
[2016-10-25 17:37] LABS: DIFF SLIDE NUMBER 313; MEAN CORPUSCULAR HEMOGLOBIN 33.7 pg (27.0-33.0); MEAN CORPUSCULAR HGB CONC 33.5 g/dl (32.0-36.5); MEAN CORPUSCULAR VOLUME 100.4 fl (80.0-96.0); RED CELL DISTRIBUTION WIDTH 16.6 % (11.5-14.5); WHITE BLOOD COUNT 4.3 K/mm3 (4.0-10.0)
[2016-10-25 17:52] LABS: PLATELET COUNT, AUTOMATED 32 k/mm3 (150-450)
[2016-10-25 17:53] LABS: ALBUMIN/GLOBULIN RATIO 0.64 (1.00-1.93); ALKALINE PHOSPHATASE 144 U/L (45-117); ALT/SGPT 45 U/L (12-78); AMYLASE 69 U/L (25-115); ANION GAP 7 MEQ/L (8-16); AST/SGOT 86 U/L (15-37); BILIRUBIN,DIRECT 0.8 MG/DL (0.0-0.2); BLOOD UREA NITROGEN 6 MG/DL (7-18); CALCIUM LEVEL 8.5 MG/DL (8.5-10.1); CARBON DIOXIDE LEVEL 28 MEQ/L (21-32); CHLORIDE LEVEL 105 MEQ/L (98-107); CREATININE FOR GFR 0.71 MG/DL (0.70-1.30); GLOMERULAR FILTRATION RATE > 60.0 (>60); GLUCOSE, FASTING 112 MG/DL (70-105); POTASSIUM SERUM 4.7 MEQ/L (3.5-5.1); SODIUM LEVEL 140 MEQ/L (136-145); TOTAL PROTEIN 7.7 GM/DL (6.4-8.2)
[2016-10-25 17:56] LABS: EOSINOPHILS 5 % (0-5)
[2016-10-25 17:57] LABS: ANISOCYTOSIS 1+
[2016-10-25 18:12] VITALS: BP 126/83
== END 2016-10-25 18:28 | disposition home or self-care (01) ==
LOC: M ED 17:23
DX: K29.20 Alcoholic gastritis without bleeding (principal); K74.60 Unspecified cirrhosis of liver; D64.9 Anemia, unspecified; F17.200 Nicotine dependence, unspecified, uncomplicated; Z79.899 Other long term (current) drug therapy
CPT/HCPCS: 80048; 80076; 82140; 82150; 83690; 85025; 85610; 96374; 99282; G0480

== ENCOUNTER 2016-11-08 15:00 | Outpatient (RCR) | payer OTHER | END 2016-11-12 | LOC: M OUTALCOH 15:00 | PROVIDERS: ATTEND Psychiatry & Neurology Psychiatry | DX: F10.20 Alcohol dependence, uncomplicated (principal); F11.20 Opioid dependence, uncomplicated; F12.20 Cannabis dependence, uncomplicated; F17.210 Nicotine dependence, cigarettes, uncomplicated ==

== ENCOUNTER 2016-12-06 15:00 | Outpatient (RCR) | payer OTHER | END 2016-12-13 | LOC: M OUTALCOH 15:00 | PROVIDERS: ATTEND Psychiatry & Neurology Psychiatry | DX: F10.20 Alcohol dependence, uncomplicated (principal); F11.20 Opioid dependence, uncomplicated; F12.20 Cannabis dependence, uncomplicated; F17.201 Nicotine dependence, unspecified, in remission ==

== ENCOUNTER 2016-12-07 19:47 | Emergency (ER) | payer OTHER ==
--- NOTE | 2016-12-07 22:12 | ECGEPIP ---
Stationary ECG Study [facility] - ED Test Date: 2016-12-07 Pat Name: ALEJO RUIZ Department: Room: - Gender: M Welt Butter Hand: elba : 1975 Requested By: VITO Wisdom Order Number: [id number] Reading MD: Jono Barba Measurements Intervals [place] Rate: 57 P: 40 IA: 181 QRS: 52 QRSD: 114 T: 35 QT: 477 QTc: 468 Interpretive Statements SINUS BRADYCARDIA MODERATE INTRAVENTRICULAR CONDUCTION DELAY PROLONGED QT INTERVAL Electronically Signed On 12-07-2016 22:12:15 EDT by Jono Barba
== END 2016-12-07 20:41 | disposition left against medical advice (07) ==
LOC: EDBD 19:47 → M ED 20:38
DX: T40.1X4A Poisoning by heroin, undetermined, initial encounter (principal); Z53.21 Procedure and treatment not carried out due to patient leaving prior to being seen by health care provider

== ENCOUNTER 2016-12-31 11:21 | Emergency (ER) | payer OTHER ==
[~2016-12-31] VITALS: Ht 185.4 cm; Wt 86.5 kg
[~2016-12-31 11:21] MED LIST changes: -FOLI1TAB2 PO; +FOLI1TAB4 PO; +HYDR-3363 PO; -HYDR25T PO; +KEFL500C17 PO; -KEFL500C7 PO; -THIA100T PO; +THIA100T6 PO
[2016-12-31] MEDS ORDERED: MORPHINE 2 MG/ML 1ML SYRINGE IV PRN (13:15)
[2016-12-31] MEDS ORDERED: NS 1,000 ML IV ONE (13:15)
[2016-12-31] MEDS ORDERED: ONDANSETRON 4MG/2ML VIAL (J2405) IV ONE (13:15)
[2016-12-31 13:41] LABS: ALBUMIN 2.8 GM/DL (3.2-5.2); ALBUMIN/GLOBULIN RATIO 0.61 (1.00-1.93); ALKALINE PHOSPHATASE 204 U/L (45-117); ALT/SGPT 73 U/L (12-78); AMYLASE 67 U/L (25-115); ANION GAP 3 MEQ/L (8-16); AST/SGOT 169 U/L (15-37); BILIRUBIN,DIRECT 1.9 MG/DL (0.0-0.2); BILIRUBIN,TOTAL 3.3 MG/DL (0.2-1.0); BLOOD UREA NITROGEN 5 MG/DL (7-18); CALCIUM LEVEL 8.9 MG/DL (8.5-10.1); CARBON DIOXIDE LEVEL 33 MEQ/L (21-32); CHLORIDE LEVEL 101 MEQ/L (98-107); CREATININE FOR GFR 0.84 MG/DL (0.70-1.30); GLOMERULAR FILTRATION RATE > 60.0 (>60); GLUCOSE, FASTING 96 MG/DL (70-105); INR 2.23; POTASSIUM SERUM 4.1 MEQ/L (3.5-5.1); SODIUM LEVEL 137 MEQ/L (136-145); TOTAL PROTEIN 7.4 GM/DL (6.4-8.2)
[2016-12-31 13:43] LABS: ADD MANUAL DIFFER YES; DIFF SLIDE NUMBER 136; MEAN CORPUSCULAR HEMOGLOBIN 35.6 pg (27.0-33.0); MEAN CORPUSCULAR HGB CONC 33.6 g/dl (32.0-36.5); MEAN CORPUSCULAR VOLUME 106.1 fl (80.0-96.0); RED CELL DISTRIBUTION WIDTH 14.6 % (11.5-14.5); WHITE BLOOD COUNT 4.8 K/mm3 (4.0-10.0)
[2016-12-31 14:10] LABS: PLATELET COUNT, AUTOMATED 29 k/mm3 (150-450)
[2016-12-31] MEDS ORDERED: ISOVUE-370 76% 100ML VIAL (Q9967) As Ordered ONE (14:12)
[2016-12-31 14:14] LABS: EOSINOPHILS 3 % (0-5)
[2016-12-31 14:15] LABS: ANISOCYTOSIS 2+
[2016-12-31 16:41] VITALS: BP 135/84
--- NOTE | 2017-01-01 07:10 | REP ---
CT ABDOMEN AND PELVIS WITH IV BUT WITHOUT ORAL CONTRAST: HISTORY: Right upper quadrant abdominal pain. Comparison CT study September 02, 2016. CT contrast dose: 100 mL of Isovue 370 is administered intravenously. FINDINGS: Preliminary digital barrel rifler radiograph and CT images demonstrate moderate splenomegaly. Spleen measures up to 19.8 cm anterior to posterior x 17 cm cranial to caudal. This is unchanged. A micronodular liver contour is seen with extensive areas of mild fatty infiltration as before. The umbilical vein is recannulated and there are other abdominal venous laterals seen in the left upper quadrant. These are consistent with portal hypertension. There is a diffuse gallbladder wall thickening and some enhancement consistent with some degree of cholecystitis. No biliary ductal dilation is observed. No pancreatic lesion is seen. No adrenal abnormality is seen. The kidneys enhance symmetrically and are morphologically intact bilaterally. A left-sided inferior vena cava is noted incidentally. Small and large bowel loops are unremarkable in the abdomen and pelvis. There is a very large pelvic venous collateral vein adjacent to the rectum, which can be traced upward in the retroperitoneum to the region of the renal vein. This is unchanged. A normal appendix is seen. IMPRESSION: 1. Findings related to cirrhosis and portal hypertension again seen including splenomegaly and multiple large intra-abdominal venous collaterals. There is a left inferior vena cava noted incidentally. 2. Diffuse thickening and some enhancement the gallbladder wall question cholecystitis. 3. No other evidence of acute intra-abdominal abnormality. Signed by Zak Yap MD 01/01/2017 08:22 A
--- NOTE | 2017-01-01 07:30 | REP ---
RIGHT UPPER QUADRANT SONOGRAPHY: HISTORY: Right upper quadrant pain. COMPARISON STUDY: September 02, 2016. Comparison is made with today's CT study witch shows evidence of cirrhosis and portal hypertension. Diffuse thickening and enhancement of the gallbladder wall is seen. SONOGRAPHIC FINDINGS: Scanning through the right upper quadrant of the abdomen demonstrates a mildly dilated gallbladder showing diffuse gallbladder wall thickening, 4.2 mm, with some pericholecystic fluid. There is no evidence of ascites. No cholelithiasis is appreciated. The gallbladder measures 10.3 cm in greatest length. The common bile duct is at the upper range of normal in size measuring 0.6 cm in greatest diameter. There is evidence of fatty infiltration of the liver. Limited views of the pancreas show no abnormality. No right renal abnormality is seen. Right kidney measures 12.2 x 5.7 x 4.7 cm. IMPRESSION: Gallbladder wall thickening and pericholecystic fluid consistent with acute or chronic cholecystitis. No stone seen. Common bile duct at the upper range of normal is 0.6 cm. Fatty infiltration of the liver. Signed by Zak Yap MD 01/01/2017 08:25 A
--- NOTE | 2017-01-02 08:45 | ED PDOC ---
Post-Departure Follow-Up dr castle faxed formal report of ct abd/p and gb us for fu Yulisa Hayden MD Jan 02, 2017 08:45
== END 2016-12-31 16:56 | disposition home or self-care (01) ==
LOC: M ED 14:38
DX: K74.60 Unspecified cirrhosis of liver (principal); K81.1 Chronic cholecystitis; F17.210 Nicotine dependence, cigarettes, uncomplicated

== ENCOUNTER 2017-03-08 19:36 | Emergency (ER) | payer OTHER ==
[2017-03-08] MEDS ORDERED: TRAM50TA2 PO (19:50)
[2017-03-08] MEDS ORDERED: NS 1,000 ML IV ONE (20:15)
[2017-03-08 20:27] LABS: INR 1.68
[2017-03-08 20:35] LABS: BASO % 0.6 % (0.0-1.0); EOS # 0.4 K/mm3 (0.0-0.50); EOS % 5.9 % (0.0-3.0); LARGE UNSTAINED CELL # 0.2 K/mm3 (0.0-0.4); LARGE UNSTAINED CELL % 2.1 % (0.0-4.0); LYMPH # 1.6 K/mm3 (1.5-4.5); LYMPH % 20.2 % (24.0-44.0); MEAN CORPUSCULAR HEMOGLOBIN 34.7 pg (27.0-33.0); MEAN CORPUSCULAR HGB CONC 34.5 g/dl (32.0-36.5); MEAN CORPUSCULAR VOLUME 100.5 fl (80.0-96.0); MONO # 0.3 K/mm3 (0.0-0.8); MONO % 4.8 % (0.0-5.0); NEUTROPHILS # 4.7 K/mm3 (1.8-7.7); NEUTROPHILS % 66.5 % (36.0-66.0); RED CELL DISTRIBUTION WIDTH 15.6 % (11.5-14.5); WHITE BLOOD COUNT 7.1 K/mm3 (4.0-10.0)
[2017-03-08 20:39] LABS: ALBUMIN 3.1 GM/DL (3.2-5.2); ALBUMIN/GLOBULIN RATIO 0.61 (1.00-1.93); ALKALINE PHOSPHATASE 222 U/L (45-117); ALT/SGPT 86 U/L (12-78); ANION GAP 6 MEQ/L (8-16); AST/SGOT 194 U/L (15-37); BILIRUBIN,DIRECT 1.4 MG/DL (0.0-0.2); BILIRUBIN,TOTAL 3.1 MG/DL (0.2-1.0); BLOOD UREA NITROGEN 6 MG/DL (7-18); CALCIUM LEVEL 8.7 MG/DL (8.5-10.1); CARBON DIOXIDE LEVEL 28 MEQ/L (21-32); CHLORIDE LEVEL 105 MEQ/L (98-107); CREATININE FOR GFR 0.78 MG/DL (0.70-1.30); GLOMERULAR FILTRATION RATE > 60.0 (>60); GLUCOSE, FASTING 107 MG/DL (70-105); POTASSIUM SERUM 3.5 MEQ/L (3.5-5.1); SODIUM LEVEL 139 MEQ/L (136-145); TOTAL PROTEIN 8.2 GM/DL (6.4-8.2)
[2017-03-08 21:07] LABS: PLATELET COUNT, AUTOMATED 54 k/mm3 (150-450)
[2017-03-08] MEDS ORDERED: CEFUROXIME 500 MG TAB PO ONE (21:15)
[2017-03-08] MEDS ORDERED: ISOVUE-370 76% 100ML VIAL (Q9967) As Ordered ONE (21:43)
[2017-03-08 22:15] VITALS: BP 161/79
--- NOTE | 2017-03-08 22:30 | REPUSA ---
CT of the cervical spine Clinical history: trauma. Technique: Multiple axial CT images were obtained through the cervical spine without administration o f contrast. Coronal and sagittal 3-D reconstructed images were also obtained. Comparison: None. Findings: The cervical vertebral bodies are in satisfactory positioning and alignment. No fractures or dislocat ions are demonstrated. The odontoid process is intact. There is mild degenerative disc disease at C6/ C7. Disc osteophyte complex at this level causes moderate narrowing of the left neural foramen. Inter vertebral disc spaces are otherwise well-maintained. There is no evidence of facet subluxation. The r emaining neural foramen appear grossly patent. The cervical cranial junction is intact. The cervical spinal canal demonstrates normal caliber and contour without evidence of spinal stenosis. The surroun ding soft tissues are within normal limits. Impression: No acute fracture or traumatic injury. Mild degenerative disc disease at C6/C7, resulting in a disc osteophyte complex causing moderate narrowing of the left neural foramen.
--- NOTE | 2017-03-08 22:30 | REPUSA ---
CT of the chest Clinical statement: trauma. Technique: Multiple axial CT images were obtained from the thoracic inlet through the upper abdomen a fter a bolus administration of nonionic intravenous contrast. Coronal and sagittal reconstructions we re also obtained. No comparison is available. Findings: The central pulmonary arteries are within normal limits. The thoracic aorta is unremarkable . Thyroid gland is within normal limits. There is no thoracic lymphadenopathy. There are no pericardi al or pleural effusions. The lungs are clear, other than minimal emphysematous changes. Limited imagi ng of the upper abdomen is unremarkable. There are no suspicious osseous lesions. Impression: No acute traumatic injury. Mild emphysema.
--- NOTE | 2017-03-08 22:30 | REPUSA ---
CT of the head Clinical history: trauma. Technique: Multiple axial CT images were obtained through the head without administration of contrast . Findings: The ventricles and sulci are symmetric bilaterally. There is no evidence of acute hemorrhag e or infarct. There is no midline shift, mass effect, or extra-axial fluid collection. The osseous st ructures are unremarkable. The visualized paranasal sinuses and mastoid air cells are clear. Impression: Negative study.
--- NOTE | 2017-03-08 22:30 | REPUSA ---
CT of the abdomen and pelvis with contrast Clinical statement: trauma. Technique: Multiple axial CT images were obtained from the base of the lungs through the floor of the pelvis utilizing 5 mm axial slices after administration of nonionic intravenous contrast. Coronal an d sagittal reconstructions were also obtained. Comparison: 03/08/2016. Findings: Chest: The visualized lung bases are clear. Abdomen: The pancreas, kidneys, and adrenal glands are unremarkable. There is minimal nodularity to t he external capsule of the liver. The spleen is enlarged, measuring 18.6 cm in maximal diameter. The aorta is within normal limits. There is no evidence of abdominal lymphadenopathy or ascites. Pelvis: The bowel is unremarkable, with no obstructive or inflammatory changes. The urinary bladder i s within normal limits. The other pelvic structures appear grossly intact. There is no evidence of pe lvic lymphadenopathy or ascites. Bones: There are no suspicious osseous abnormalities seen. Impression: 1. No acute traumatic injury. 2. Mild nodularity to the liver could represent sclerosis in the appropriate clinical setting. Ultras ound may be helpful for further evaluation. 3. Splenomegaly.
--- NOTE | 2017-03-10 08:02 | ED PDOC ---
Post-Departure Follow-Up certitied letter sent to pt re formal read of ct abd/p for fu Yulisa Hayden MD Mar 10, 2017 08:02
== END 2017-03-08 22:43 | disposition home or self-care (01) ==
LOC: M ED 19:36 → EDBD 19:36 → M ED 22:43
DX: Z71.1 Person with feared health complaint in whom no diagnosis is made (principal); Y04.0XXA Assault by unarmed brawl or fight, initial encounter; Y92.410 Unspecified street and highway as the place of occurrence of the external cause; Y93.89 Activity, other specified; Y99.9 Unspecified external cause status
CPT/HCPCS: 36415; 70450; 71260; 72125; 74177; 80048; 80076; 82140; 83605; 83690; 85025; 85610; 85730; 86850; 86900; 86901; 93041; 99284; G0480; Q9967

== ENCOUNTER → 2017-04-26 | Outpatient (REF) | payer OTHER ==
[~2017-04-26] MED LIST changes: +TRAM50TA2 PO
[2017-04-26 14:06] LABS: BASO % 0.7 % (0.0-1.0); EOS # 0.2 10^3/uL (0.0-0.50); EOS % 3.9 % (0.0-3.0); IMMATURE GRANULOCYTE % 0.2 % (0-0); LYMPH % 21.3 % (24.0-44.0); MEAN CORPUSCULAR HEMOGLOBIN 34.1 pg (27.0-33.0); MEAN CORPUSCULAR HGB CONC 34.4 g/dl (32.0-36.5); MEAN CORPUSCULAR VOLUME 99.2 fl (80.0-96.0); MONO # 0.6 10^3/uL (0.0-0.8); MONO % 12.2 % (0.0-5.0); NEUTROPHILS # 2.8 10^3/uL (1.8-7.7); NEUTROPHILS % 61.7 % (36.0-66.0); RED CELL DISTRIBUTION WIDTH 14.6 % (11.5-14.5); WHITE BLOOD COUNT 4.6 10^3/uL (4.0-10.0)
[2017-04-26 14:12] LABS: PLATELET COUNT, AUTOMATED 34 10^3/uL (150-450)
[2017-04-26 14:13] LABS: ADD MANUAL DIFFER NO; DIFF SLIDE NUMBER 231
[2017-04-26 14:14] LABS: ALBUMIN/GLOBULIN RATIO 0.63 (1.00-1.93); ALKALINE PHOSPHATASE 210 U/L (45-117); ALT/SGPT 125 U/L (12-78); ANION GAP 6 MEQ/L (8-16); AST/SGOT 173 U/L (15-37); BILIRUBIN,TOTAL 2.1 MG/DL (0.2-1.0); BLOOD UREA NITROGEN 11 MG/DL (7-18); CALCIUM LEVEL 9.1 MG/DL (8.5-10.1); CARBON DIOXIDE LEVEL 30 MEQ/L (21-32); CHLORIDE LEVEL 104 MEQ/L (98-107); CREATININE FOR GFR 0.73 MG/DL (0.70-1.30); GLOMERULAR FILTRATION RATE > 60.0 (>60); GLUCOSE, FASTING 85 MG/DL (70-105); IMMATURE PLATELET FRACTION % 17.7 % (0.0-10.9); INR 1.77; POTASSIUM SERUM 4.2 MEQ/L (3.5-5.1); SODIUM LEVEL 140 MEQ/L (136-145); TOTAL PROTEIN 7.8 GM/DL (6.4-8.2)
[2017-04-26 14:15] LABS: PLATELET F 34
[2017-04-30 14:13] LABS: HEPATITIS C QUANTITATION 896320 IU/mL (.)
== END ==
LOC: M SFHCPLAZ 10:42
PROVIDERS: ATTEND Internal Medicine Infectious Disease
DX: B18.2 Chronic viral hepatitis C (principal); K70.31 Alcoholic cirrhosis of liver with ascites

== ENCOUNTER → 2017-07-05 | Outpatient (CLI) | payer MEDICAID, OTHER ==
--- NOTE | 2017-07-05 11:05 | REP ---
RIGHT UPPER QUADRANT SONOGRAPHY: HISTORY: Screening for hepatocellular carcinoma. COMPARISON STUDY: December 31, 2016. Comparison CT study, March 08, 2017. FINDINGS: Right upper quadrant sonography demonstrates a somewhat contracted appearing gallbladder without evidence of stone or polyp. Common bile duct is normal at 0.6 cm in greatest diameter. Coarse liver texture is again seen, consistent with cirrhosis. The umbilical vein is again seen to be patent. The pancreas is largely obscured by abdominal gas. No focal liver lesion is seen. There is no evidence of ascites. No right renal abnormality is observed. The right kidney measures 11.7 x 6.3 x 4.4 cm. IMPRESSION: Coarse liver texture and patent umbilical vein, consistent with cirrhosis. No liver mass lesion is seen. No evidence of ascites. Small contracted appearing gallbladder. Signed by Zak Yap MD 07/05/2017 03:56 P
== END ==
LOC: M RAD 08:48
PROVIDERS: ATTEND Internal Medicine Infectious Disease
DX: B18.2 Chronic viral hepatitis C (principal)

== ENCOUNTER 2017-09-10 22:45 | Inpatient (IN) | payer MEDICAID, OTHER, SELFPAY ==
[2017-09-10 23:47] LABS: HEMATOCRIT 37.8 % (42.0-52.0); HEMOGLOBIN 12.7 g/dl (14.0-18.0); MEAN CORPUSCULAR HEMOGLOBIN 31.3 pg (27.0-33.0); MEAN CORPUSCULAR HGB CONC 33.6 g/dl (32.0-36.5); MEAN CORPUSCULAR VOLUME 93.1 fl (80.0-96.0); RED BLOOD COUNT 4.06 10^6/uL (4.30-6.10); RED CELL DISTRIBUTION WIDTH 15.6 % (11.5-14.5); WHITE BLOOD COUNT 5.3 10^3/uL (4.0-10.0)
[2017-09-11 00:08] LABS: AMPHETAMINES LEVEL URINE NEGATIVE (NEGATIVE); BARBITURATES URINE NEGATIVE (NEGATIVE); BENZODIAZEPINES URINE NEGATIVE (NEGATIVE); CANNABINOIDS URINE POSITIVE (NEGATIVE); COCAINE METABOLITE URINE POSITIVE (NEGATIVE); IMMATURE PLATELET FRACTION % 11.6 % (0.0-10.9); METHADONE URINE NEGATIVE (NEGATIVE); OPIATES URINE POSITIVE (NEGATIVE); PHENCYCLIDINE URINE NEGATIVE (NEGATIVE); PLATELET COUNT, AUTOMATED 35 10^3/uL (150-450)
[2017-09-11 00:18] LABS: ALBUMIN/GLOBULIN RATIO 0.65 (1.00-1.93); ALKALINE PHOSPHATASE 221 U/L (45-117); ALT/SGPT 62 U/L (12-78); ANION GAP 5 MEQ/L (8-16); AST/SGOT 130 U/L (7-37); BILIRUBIN,DIRECT 1.1 MG/DL (0.0-0.2); BILIRUBIN,TOTAL 1.9 MG/DL (0.2-1.0); BLOOD UREA NITROGEN 5 MG/DL (7-18); CALCIUM LEVEL 8.6 MG/DL (8.5-10.1); CARBON DIOXIDE LEVEL 33 MEQ/L (21-32); CHLORIDE LEVEL 99 MEQ/L (98-107); CREATININE FOR GFR 0.78 MG/DL (0.70-1.30); ETHYL ALCOHOL (ETHANOL) 0.058 % (0.000-0.010); GLOMERULAR FILTRATION RATE > 60.0 (>60); GLUCOSE, FASTING 131 MG/DL (70-100); POTASSIUM SERUM 4.1 MEQ/L (3.5-5.1); SODIUM LEVEL 137 MEQ/L (136-145); THYROID STIMULATING HORMONE 0.269 uIU/ML (0.358-3.740); TOTAL PROTEIN 7.6 GM/DL (6.4-8.2)
[2017-09-11 01:06] LABS: ACETAMINOPHEN LEVEL < 2.0 UG/ML (10.0-30.0); SALICYLATE LEVEL < 1.7 MG/DL (5.0-30.0)
[2017-09-11] MEDS ORDERED: traZODone 50 MG TAB PO (02:30)
[2017-09-11] MEDS ORDERED: MAALOX 30 ML SUSP *UDC PO (02:30)
[2017-09-11] MEDS ORDERED: clonazePAM 1 MG TAB PO (02:30)
[2017-09-11] MEDS ORDERED: MOM 30ML SUSPENSION UDC PO (02:30)
[2017-09-11] MEDS: NALTREXONE 50 MG TAB PO (08:49)
[2017-09-11] MEDS: CitaloPRAM (CeleXA) 20 MG TAB PO (08:49)
[2017-09-11] MEDS: NICOTINE 21MG/24HR 1 EA TRANSDERMAL TD (08:49)
[2017-09-11] MEDS: MULTIVITAMINS/MINERALS THERAP 1 TAB PO (11:13)
[2017-09-11] MEDS: THIAMINE 100 MG TAB PO ×2 (11:13→21:00)
[2017-09-11] MEDS: METHADONE 10 MG TAB (S0109) PO ×3 (11:14→21:00)
[2017-09-11] MEDS: FOLIC ACID 1 MG TAB PO (11:14)
[2017-09-11] MEDS: FUROSEMIDE 20 MG TAB PO (11:44)
[2017-09-11] MEDS: MAGNESIUM OXIDE 400 MG TAB (MAG-OX) PO (11:44)
[2017-09-11] MEDS: OMEPRAZOLE 20 MG CAP PO (11:44)
[2017-09-11] MEDS: POTASSIUM CHLORIDE 10 MEQ SR TABLET PO (11:44)
[2017-09-11] MEDS ORDERED: IBUPROFEN 600 MG TAB PO (11:45)
[2017-09-11] MEDS: CYANOCOBALAMIN 500 MCG TAB PO (11:46)
[2017-09-11] MEDS: LORazepam 2 MG TAB PO (12:09)
[2017-09-11] MEDS: LACTULOSE 20 GM/30 ML SYRUP UD PO (12:49)
[2017-09-11] MEDS: SPIRONOLACTONE 50 MG TAB PO (12:49)
[2017-09-11] MEDS: NADOLOL 20MG TABLET PO (12:50)
[2017-09-12] MEDS: NICOTINE 21MG/24HR 1 EA TRANSDERMAL TD (08:00)
[2017-09-12] MEDS: MULTIVITAMINS/MINERALS THERAP 1 TAB PO (08:02)
[2017-09-12] MEDS: OMEPRAZOLE 20 MG CAP PO (08:02)
[2017-09-12] MEDS: METHADONE 10 MG TAB (S0109) PO ×3 (08:02→20:16)
[2017-09-12] MEDS: MAGNESIUM OXIDE 400 MG TAB (MAG-OX) PO (08:03)
[2017-09-12] MEDS: FUROSEMIDE 20 MG TAB PO (08:03)
[2017-09-12] MEDS: FOLIC ACID 1 MG TAB PO (08:03)
[2017-09-12] MEDS: THIAMINE 100 MG TAB PO ×2 (08:04→20:14)
[2017-09-12] MEDS: SERTRALINE HCL 50 MG TAB PO (08:04)
[2017-09-12] MEDS: LACTULOSE 20 GM/30 ML SYRUP UD PO (08:04)
[2017-09-12] MEDS: POTASSIUM CHLORIDE 10 MEQ SR TABLET PO (08:04)
[2017-09-12] MEDS: SPIRONOLACTONE 50 MG TAB PO (08:04)
[2017-09-12] MEDS: CYANOCOBALAMIN 500 MCG TAB PO (08:04)
[2017-09-12] MEDS: NADOLOL 20MG TABLET PO (08:05)
[2017-09-12 08:19] LABS: HEMATOCRIT 37.4 % (42.0-52.0); HEMOGLOBIN 12.7 g/dl (14.0-18.0); MEAN CORPUSCULAR HEMOGLOBIN 31.5 pg (27.0-33.0); MEAN CORPUSCULAR VOLUME 92.8 fl (80.0-96.0); RED BLOOD COUNT 4.03 10^6/uL (4.30-6.10); RED CELL DISTRIBUTION WIDTH 15.8 % (11.5-14.5); WHITE BLOOD COUNT 4.8 10^3/uL (4.0-10.0)
[2017-09-12 08:28] LABS: PLATELET COUNT, AUTOMATED 35 10^3/uL (150-450)
[2017-09-12 08:29] LABS: IMMATURE PLATELET FRACTION % 9.8 % (0.0-10.9)
[2017-09-12 08:30] LABS: INR 1.99; PROTHROMBIN TIME 23.3 SECONDS (12.4-14.5)
[2017-09-12 08:31] LABS: PARTIAL THROMBOPLASTIN TIME 36.3 SECONDS (26.8-37.9)
[2017-09-12 08:40] LABS: AMMONIA 120 uMOL/L (<32)
[2017-09-12 08:45] LABS: ALBUMIN 2.7 GM/DL (3.2-5.2); ALBUMIN/GLOBULIN RATIO 0.63 (1.00-1.93); ALKALINE PHOSPHATASE 171 U/L (45-117); ALT/SGPT 52 U/L (12-78); ANION GAP 6 MEQ/L (8-16); AST/SGOT 91 U/L (7-37); BILIRUBIN,TOTAL 2.8 MG/DL (0.2-1.0); BLOOD UREA NITROGEN 8 MG/DL (7-18); CALCIUM LEVEL 8.2 MG/DL (8.5-10.1); CARBON DIOXIDE LEVEL 27 MEQ/L (21-32); CHLORIDE LEVEL 108 MEQ/L (98-107); CREATININE FOR GFR 0.72 MG/DL (0.70-1.30); GLOMERULAR FILTRATION RATE > 60.0 (>60); GLUCOSE, FASTING 170 MG/DL (70-100); MAGNESIUM LEVEL 1.9 MG/DL (1.8-2.4); SODIUM LEVEL 141 MEQ/L (136-145)
[2017-09-12 08:52] LABS: FREE THYROXINE INDEX 2.9 % (1.4-3.8); T UPTAKE 29 % (33-40); THYROID STIMULATING HORMONE 0.068 uIU/ML (0.358-3.740); THYROXINE (T4) 9.9 UG/DL (4.5-12.0)
[2017-09-12] MEDS: ZINC SULFATE 220 MG CAP PO ×2 (09:00→20:14)
[2017-09-12] MEDS: diphenhydrAMINE 50 MG CAP PO (20:16)
[2017-09-13] MEDS: MAGNESIUM OXIDE 400 MG TAB (MAG-OX) PO (08:46)
[2017-09-13] MEDS: POTASSIUM CHLORIDE 10 MEQ SR TABLET PO (08:46)
[2017-09-13] MEDS: CYANOCOBALAMIN 500 MCG TAB PO (08:46)
[2017-09-13] MEDS: NICOTINE 21MG/24HR 1 EA TRANSDERMAL TD (08:46)
[2017-09-13] MEDS: ZINC SULFATE 220 MG CAP PO ×2 (08:47→21:08)
[2017-09-13] MEDS: OMEPRAZOLE 20 MG CAP PO (08:47)
[2017-09-13] MEDS: NADOLOL 20MG TABLET PO (08:47)
[2017-09-13] MEDS: MULTIVITAMINS/MINERALS THERAP 1 TAB PO (08:47)
[2017-09-13] MEDS: SPIRONOLACTONE 50 MG TAB PO (08:47)
[2017-09-13] MEDS: THIAMINE 100 MG TAB PO ×2 (08:47→21:08)
[2017-09-13] MEDS: SERTRALINE HCL 50 MG TAB PO (08:47)
[2017-09-13] MEDS: FOLIC ACID 1 MG TAB PO (08:47)
[2017-09-13] MEDS: LACTULOSE 20 GM/30 ML SYRUP UD PO (08:48)
[2017-09-13] MEDS: FUROSEMIDE 20 MG TAB PO (08:48)
[2017-09-13] MEDS: METHADONE 10 MG TAB (S0109) PO ×2 (08:48→21:07)
[2017-09-13] MEDS: diphenhydrAMINE 50 MG CAP PO (21:06)
[2017-09-14 07:36] LABS: HEMATOCRIT 40.5 % (42.0-52.0); HEMOGLOBIN 13.7 g/dl (14.0-18.0); MEAN CORPUSCULAR HEMOGLOBIN 31.7 pg (27.0-33.0); MEAN CORPUSCULAR HGB CONC 33.8 g/dl (32.0-36.5); MEAN CORPUSCULAR VOLUME 93.8 fl (80.0-96.0); RED BLOOD COUNT 4.32 10^6/uL (4.30-6.10); RED CELL DISTRIBUTION WIDTH 16.2 % (11.5-14.5); WHITE BLOOD COUNT 4.6 10^3/uL (4.0-10.0)
[2017-09-14 07:44] LABS: IMMATURE PLATELET FRACTION % 8.4 % (0.0-10.9); PLATELET COUNT, AUTOMATED 36 10^3/uL (150-450)
[2017-09-14 08:03] LABS: INR 2.08; PROTHROMBIN TIME 24.1 SECONDS (12.4-14.5)
[2017-09-14 08:04] LABS: AMMONIA 95 uMOL/L (<32)
[2017-09-14 08:09] LABS: ALBUMIN 2.7 GM/DL (3.2-5.2); ALBUMIN/GLOBULIN RATIO 0.61 (1.00-1.93); ALKALINE PHOSPHATASE 228 U/L (45-117); ALT/SGPT 61 U/L (12-78); ANION GAP 6 MEQ/L (8-16); AST/SGOT 104 U/L (7-37); BILIRUBIN,TOTAL 1.8 MG/DL (0.2-1.0); BLOOD UREA NITROGEN 9 MG/DL (7-18); CALCIUM LEVEL 8.4 MG/DL (8.5-10.1); CARBON DIOXIDE LEVEL 31 MEQ/L (21-32); CHLORIDE LEVEL 106 MEQ/L (98-107); CREATININE FOR GFR 0.74 MG/DL (0.70-1.30); GLOMERULAR FILTRATION RATE > 60.0 (>60); GLUCOSE, FASTING 84 MG/DL (70-100); POTASSIUM SERUM 3.8 MEQ/L (3.5-5.1); SODIUM LEVEL 143 MEQ/L (136-145); TOTAL PROTEIN 7.1 GM/DL (6.4-8.2)
[2017-09-14] MEDS: ZINC SULFATE 220 MG CAP PO ×2 (09:04→21:06)
[2017-09-14] MEDS: NICOTINE 21MG/24HR 1 EA TRANSDERMAL TD (09:04)
[2017-09-14] MEDS: CYANOCOBALAMIN 500 MCG TAB PO (09:04)
[2017-09-14] MEDS: LACTULOSE 20 GM/30 ML SYRUP UD PO (09:04)
[2017-09-14] MEDS: METHADONE 10 MG TAB (S0109) PO ×2 (09:05→21:08)
[2017-09-14] MEDS: MAGNESIUM OXIDE 400 MG TAB (MAG-OX) PO (09:05)
[2017-09-14] MEDS: MULTIVITAMINS/MINERALS THERAP 1 TAB PO (09:05)
[2017-09-14] MEDS: SPIRONOLACTONE 50 MG TAB PO (09:05)
[2017-09-14] MEDS: FUROSEMIDE 20 MG TAB PO (09:05)
[2017-09-14] MEDS: POTASSIUM CHLORIDE 10 MEQ SR TABLET PO (09:05)
[2017-09-14] MEDS: OMEPRAZOLE 20 MG CAP PO (09:05)
[2017-09-14] MEDS: NADOLOL 20MG TABLET PO (09:06)
[2017-09-14] MEDS: FOLIC ACID 1 MG TAB PO (09:06)
[2017-09-14] MEDS: SERTRALINE HCL 50 MG TAB PO (09:07)
[2017-09-14] MEDS: diphenhydrAMINE 50 MG CAP PO (21:06)
[2017-09-15] MEDS: FOLIC ACID 1 MG TAB PO (08:17)
[2017-09-15] MEDS: NICOTINE 21MG/24HR 1 EA TRANSDERMAL TD (08:17)
[2017-09-15] MEDS: MAGNESIUM OXIDE 400 MG TAB (MAG-OX) PO (08:17)
[2017-09-15] MEDS: POTASSIUM CHLORIDE 10 MEQ SR TABLET PO (08:18)
[2017-09-15] MEDS: MULTIVITAMINS/MINERALS THERAP 1 TAB PO (08:18)
[2017-09-15] MEDS: ZINC SULFATE 220 MG CAP PO ×2 (08:18→21:29)
[2017-09-15] MEDS: NADOLOL 20MG TABLET PO (08:18)
[2017-09-15] MEDS: CYANOCOBALAMIN 500 MCG TAB PO (08:18)
[2017-09-15] MEDS: FUROSEMIDE 20 MG TAB PO (08:18)
[2017-09-15] MEDS: SERTRALINE HCL 50 MG TAB PO (08:18)
[2017-09-15] MEDS: OMEPRAZOLE 20 MG CAP PO (08:18)
[2017-09-15] MEDS: SPIRONOLACTONE 50 MG TAB PO (08:18)
[2017-09-15] MEDS: LACTULOSE 20 GM/30 ML SYRUP UD PO (08:18)
[2017-09-15] MEDS: METHADONE 10 MG TAB (S0109) PO ×2 (08:19→21:30)
[2017-09-15] MEDS: diphenhydrAMINE 50 MG CAP PO (21:29)
[2017-09-16] MEDS: FOLIC ACID 1 MG TAB PO (08:38)
[2017-09-16] MEDS: POTASSIUM CHLORIDE 10 MEQ SR TABLET PO (08:38)
[2017-09-16] MEDS: METHADONE 10 MG TAB (S0109) PO ×2 (08:38→20:34)
[2017-09-16] MEDS: MAGNESIUM OXIDE 400 MG TAB (MAG-OX) PO (08:38)
[2017-09-16] MEDS: OMEPRAZOLE 20 MG CAP PO (08:38)
[2017-09-16] MEDS: LACTULOSE 20 GM/30 ML SYRUP UD PO (08:39)
[2017-09-16] MEDS: ZINC SULFATE 220 MG CAP PO ×2 (08:39→20:35)
[2017-09-16] MEDS: MULTIVITAMINS/MINERALS THERAP 1 TAB PO (08:39)
[2017-09-16] MEDS: CYANOCOBALAMIN 500 MCG TAB PO (08:39)
[2017-09-16] MEDS: NICOTINE 21MG/24HR 1 EA TRANSDERMAL TD (08:39)
[2017-09-16] MEDS: NADOLOL 20MG TABLET PO (08:39)
[2017-09-16] MEDS: SPIRONOLACTONE 50 MG TAB PO (08:39)
[2017-09-16] MEDS: SERTRALINE HCL 50 MG TAB PO (08:39)
[2017-09-16] MEDS: FUROSEMIDE 20 MG TAB PO (08:39)
[2017-09-16] MEDS: diphenhydrAMINE 50 MG CAP PO (20:34)
[2017-09-16] MEDS: ACETAMINOPHEN TAB 650MG DOSE (2X325MG) PO (20:35)
[2017-09-17 07:36] LABS: HEMATOCRIT 47.6 % (42.0-52.0); HEMOGLOBIN 15.9 g/dl (14.0-18.0); MEAN CORPUSCULAR HEMOGLOBIN 31.3 pg (27.0-33.0); MEAN CORPUSCULAR HGB CONC 33.4 g/dl (32.0-36.5); MEAN CORPUSCULAR VOLUME 93.7 fl (80.0-96.0); RED BLOOD COUNT 5.08 10^6/uL (4.30-6.10); RED CELL DISTRIBUTION WIDTH 15.9 % (11.5-14.5); WHITE BLOOD COUNT 5.6 10^3/uL (4.0-10.0)
[2017-09-17 07:49] LABS: PLATELET COUNT, AUTOMATED 41 10^3/uL (150-450)
[2017-09-17 07:51] LABS: IMMATURE PLATELET FRACTION % 9.3 % (0.0-10.9); PLATELET F 33
[2017-09-17 07:57] LABS: INR 1.82; PROTHROMBIN TIME 21.6 SECONDS (12.4-14.5)
[2017-09-17 08:05] LABS: AMMONIA 117 uMOL/L (<32)
[2017-09-17 08:08] LABS: ALBUMIN 3.2 GM/DL (3.2-5.2); ALBUMIN/GLOBULIN RATIO 0.62 (1.00-1.93); ALKALINE PHOSPHATASE 220 U/L (45-117); ALT/SGPT 138 U/L (12-78); ANION GAP 5 MEQ/L (8-16); AST/SGOT 245 U/L (7-37); BLOOD UREA NITROGEN 9 MG/DL (7-18); CALCIUM LEVEL 9.1 MG/DL (8.5-10.1); CARBON DIOXIDE LEVEL 32 MEQ/L (21-32); CHLORIDE LEVEL 101 MEQ/L (98-107); CREATININE FOR GFR 0.78 MG/DL (0.70-1.30); GLOMERULAR FILTRATION RATE > 60.0 (>60); GLUCOSE, FASTING 102 MG/DL (70-100); POTASSIUM SERUM 4.4 MEQ/L (3.5-5.1); SODIUM LEVEL 138 MEQ/L (136-145); TOTAL PROTEIN 8.4 GM/DL (6.4-8.2)
[2017-09-17] MEDS: MAGNESIUM OXIDE 400 MG TAB (MAG-OX) PO (08:45)
[2017-09-17] MEDS: NICOTINE 21MG/24HR 1 EA TRANSDERMAL TD (08:46)
[2017-09-17] MEDS: OMEPRAZOLE 20 MG CAP PO (08:47)
[2017-09-17] MEDS: METHADONE 10 MG TAB (S0109) PO (08:47)
[2017-09-17] MEDS: FUROSEMIDE 20 MG TAB PO (08:47)
[2017-09-17] MEDS: FOLIC ACID 1 MG TAB PO (08:47)
[2017-09-17] MEDS: POTASSIUM CHLORIDE 10 MEQ SR TABLET PO (08:47)
[2017-09-17] MEDS: ZINC SULFATE 220 MG CAP PO ×2 (08:47→20:50)
[2017-09-17] MEDS: SPIRONOLACTONE 50 MG TAB PO (08:48)
[2017-09-17] MEDS: SERTRALINE HCL 50 MG TAB PO (08:48)
[2017-09-17] MEDS: LACTULOSE 20 GM/30 ML SYRUP UD PO (08:48)
[2017-09-17] MEDS: CYANOCOBALAMIN 500 MCG TAB PO (08:48)
[2017-09-17] MEDS: MULTIVITAMINS/MINERALS THERAP 1 TAB PO (08:48)
[2017-09-17] MEDS: NADOLOL 20MG TABLET PO (08:48)
[2017-09-17] MEDS: diphenhydrAMINE 50 MG CAP PO (20:50)
[2017-09-18] MEDS: METHADONE 10 MG TAB (S0109) PO (06:07)
== END 2017-09-18 07:00 | disposition home or self-care (01) | DRG 754 ==
LOC: M ED INP 09-11 04:05 → M PSY 09-11 04:15 → M ED 22:45
DX: F32.9 Major depressive disorder, single episode, unspecified (principal); I85.00 Esophageal varices without bleeding; K70.31 Alcoholic cirrhosis of liver with ascites; E83.42 Hypomagnesemia; F60.9 Personality disorder, unspecified; F19.94 Other psychoactive substance use, unspecified with psychoactive substance-induced mood disorder; F17.210 Nicotine dependence, cigarettes, uncomplicated; R94.6 Abnormal results of thyroid function studies; K21.9 Gastro-esophageal reflux disease without esophagitis; B18.2 Chronic viral hepatitis C; Z79.899 Other long term (current) drug therapy

== ENCOUNTER → 2018-03-28 | Outpatient (REF) | payer MEDICAID ==
[2018-03-28 15:09] LABS: BASO % 0.4 % (0.0-1.0); EOS # 0.2 10^3/uL (0.0-0.50); EOS % 3.4 % (0.0-3.0); HEMATOCRIT 38.3 % (42.0-52.0); HEMOGLOBIN 12.9 g/dl (13.5-17.5); IMMATURE GRANULOCYTE % 0.4 % (0-3.0); LYMPH # 0.9 10^3/uL (1.5-4.5); LYMPH % 17.6 % (24.0-44.0); MEAN CORPUSCULAR HEMOGLOBIN 32.1 pg (27.0-33.0); MEAN CORPUSCULAR HGB CONC 33.7 g/dl (32.0-36.5); MEAN CORPUSCULAR VOLUME 95.3 fl (80.0-96.0); MONO # 0.6 10^3/uL (0.0-0.8); MONO % 12.1 % (0.0-5.0); NEUTROPHILS # 3.3 10^3/uL (1.8-7.7); NEUTROPHILS % 66.1 % (36.0-66.0); RED BLOOD COUNT 4.02 10^6/uL (4.30-6.10); RED CELL DISTRIBUTION WIDTH 16.7 % (11.5-14.5); WHITE BLOOD COUNT 4.9 10^3/uL (4.0-10.0)
[2018-03-28 15:18] LABS: INR 1.62; PROTHROMBIN TIME 19.5 SECONDS (12.1-14.4)
[2018-03-28 15:30] LABS: ALBUMIN 3.3 GM/DL (3.2-5.2); ALKALINE PHOSPHATASE 195 U/L (45-117); ALT/SGPT 100 U/L (12-78); ANION GAP 9 MEQ/L (8-16); AST/SGOT 176 U/L (7-37); BILIRUBIN,TOTAL 2.4 MG/DL (0.2-1.0); BLOOD UREA NITROGEN 9 MG/DL (7-18); CALCIUM LEVEL 9.2 MG/DL (8.5-10.1); CARBON DIOXIDE LEVEL 26 MEQ/L (21-32); CHLORIDE LEVEL 105 MEQ/L (98-107); CREATININE FOR GFR 0.76 MG/DL (0.70-1.30); GLOMERULAR FILTRATION RATE > 60.0 (>60); GLUCOSE, FASTING 102 MG/DL (70-100); SODIUM LEVEL 140 MEQ/L (136-145)
[2018-03-28 15:55] LABS: PLATELET COUNT, AUTOMATED 37 10^3/uL (150-450)
[2018-03-28 15:56] LABS: IMMATURE PLATELET FRACTION % 11.8 % (0.0-10.9); PLATELET F 37
[2018-03-29 12:25] LABS: ALPHA FETOPROTEIN TUMOR QUANT 9.5 NG/ML (<8.1)
[2018-04-01 14:17] LABS: HEPATITIS C QUANTITATION 399840 IU/mL (.)
== END ==
LOC: M SFHCPLAZ 09:56
DX: K70.31 Alcoholic cirrhosis of liver with ascites (principal); B18.2 Chronic viral hepatitis C

== ENCOUNTER → 2018-03-29 | Outpatient (CLI) | payer MEDICAID | LOC: M OUTALCOH 13:42 | DX: Z13.89 Encounter for screening for other disorder (principal); F10.20 Alcohol dependence, uncomplicated (principal) ==

== ENCOUNTER 2018-04-24 13:30 | Emergency (ER) | payer MEDICAID ==
[2018-04-24 14:40] LABS: BASO % 0.5 % (0.0-1.0); EOS # 0.2 10^3/uL (0.0-0.50); EOS % 3.4 % (0.0-3.0); HEMATOCRIT 37.3 % (42.0-52.0); HEMOGLOBIN 12.7 g/dl (13.5-17.5); IMMATURE GRANULOCYTE % 0.2 % (0-3.0); LYMPH # 0.8 10^3/uL (1.5-4.5); LYMPH % 17.1 % (24.0-44.0); MEAN CORPUSCULAR HEMOGLOBIN 31.8 pg (27.0-33.0); MEAN CORPUSCULAR VOLUME 93.3 fl (80.0-96.0); MONO # 0.5 10^3/uL (0.0-0.8); MONO % 10.5 % (0.0-5.0); NEUTROPHILS % 68.3 % (36.0-66.0); RED CELL DISTRIBUTION WIDTH 16.7 % (11.5-14.5); WHITE BLOOD COUNT 4.4 10^3/uL (4.0-10.0)
[2018-04-24 14:42] LABS: PLATELET COUNT, AUTOMATED 31 10^3/uL (150-450)
[2018-04-24 14:43] LABS: IMMATURE PLATELET FRACTION % 8.1 % (0.0-10.9)
[2018-04-24 15:05] LABS: ALBUMIN 2.8 GM/DL (3.2-5.2); ALBUMIN/GLOBULIN RATIO 0.62 (1.00-1.93); ALKALINE PHOSPHATASE 239 U/L (45-117); ALT/SGPT 66 U/L (12-78); AMYLASE 44 U/L (25-115); ANION GAP 8 MEQ/L (8-16); AST/SGOT 124 U/L (7-37); BILIRUBIN,DIRECT 1.4 MG/DL (0.0-0.2); BILIRUBIN,TOTAL 3.3 MG/DL (0.2-1.0); BLOOD UREA NITROGEN 6 MG/DL (7-18); CALCIUM LEVEL 8.2 MG/DL (8.5-10.1); CARBON DIOXIDE LEVEL 28 MEQ/L (21-32); CHLORIDE LEVEL 105 MEQ/L (98-107); CREATININE FOR GFR 0.76 MG/DL (0.70-1.30); GLOMERULAR FILTRATION RATE > 60.0 (>60); GLUCOSE, FASTING 78 MG/DL (70-100); LIPASE 273 U/L (73-393); POTASSIUM SERUM 3.5 MEQ/L (3.5-5.1); SODIUM LEVEL 141 MEQ/L (136-145); TOTAL PROTEIN 7.3 GM/DL (6.4-8.2)
[2018-04-24 15:08] LABS: AMMONIA 47 uMOL/L (<32)
[2018-04-24] MEDS ORDERED: ISOVUE-370 76% 100ML VIAL (Q9967) As Ordered (15:42)
[2018-04-24] MEDS: NS 1,000 ML IV (15:57)
[2018-04-24] MEDS: MORPHINE 4 MG/ML 1ML VIAL/SYRINGE (J2270) IV (16:02)
[2018-04-24 16:15] LABS: CPK CREATINE PHOSPHOKINASE 194 U/L (39-308); MB/CK RELATIVE INDEX 0.98 (< OR =4); TROPONIN I < 0.02 NG/ML (< 0.10)
[2018-04-24] MEDS: KETOROLAC 30 MG/ML VIAL (J1885) IV (19:00)
[2018-04-24 19:07] LABS: ALBUMIN 2.9 GM/DL (3.2-5.2); ALBUMIN/GLOBULIN RATIO 0.71 (1.00-1.93); ALKALINE PHOSPHATASE 205 U/L (45-117); ALT/SGPT 64 U/L (12-78); ANION GAP 6 MEQ/L (8-16); AST/SGOT 125 U/L (7-37); BILIRUBIN,TOTAL 3.6 MG/DL (0.2-1.0); BLOOD UREA NITROGEN 6 MG/DL (7-18); CALCIUM LEVEL 8.3 MG/DL (8.5-10.1); CARBON DIOXIDE LEVEL 29 MEQ/L (21-32); CHLORIDE LEVEL 106 MEQ/L (98-107); CREATININE FOR GFR 0.71 MG/DL (0.70-1.30); GLOMERULAR FILTRATION RATE > 60.0 (>60); GLUCOSE, FASTING 87 MG/DL (70-100); POTASSIUM SERUM 3.8 MEQ/L (3.5-5.1); SODIUM LEVEL 141 MEQ/L (136-145)
[2018-04-24] MEDS: AUGMENTIN 875 MG TAB PO (22:15)
[2018-04-24] MEDS: OXYCODONE/APAP 5MG/325MG(BULK FOR ED) 1 TABLET PO (22:16)
== END 2018-04-24 22:27 | disposition home or self-care (01) ==
LOC: M ED 13:30
DX: K80.12 Calculus of gallbladder with acute and chronic cholecystitis without obstruction (principal); K70.30 Alcoholic cirrhosis of liver without ascites; B19.20 Unspecified viral hepatitis C without hepatic coma; I83.90 Asymptomatic varicose veins of unspecified lower extremity; Z79.899 Other long term (current) drug therapy; F17.210 Nicotine dependence, cigarettes, uncomplicated
CPT/HCPCS: J2270

== ENCOUNTER 2018-04-29 09:17 | Outpatient (RCR) | payer MEDICAID | END 2018-05-15 | LOC: M OUTALCOH 05-06 09:00 | DX: F10.20 Alcohol dependence, uncomplicated (principal); F11.20 Opioid dependence, uncomplicated; F12.20 Cannabis dependence, uncomplicated; F17.200 Nicotine dependence, unspecified, uncomplicated ==

== ENCOUNTER → 2018-05-06 | Outpatient (CLI) | payer MEDICAID ==
[~2018-05-06] MED LIST changes: -ALDA25TA2 PO; -BACT800T5 PO; -FLUC10TA PO; -FOLI1TAB4 PO; -FURO20TA2 PO; +GASTROGRAFIN SOLUTION 30ML (Q9963) As Ordered; -HYDR-3363 PO; +ISOVUE-370 76% 100ML VIAL (Q9967) As Ordered; -KEFL500C17 PO; -LACT10SO29 PO; -LACT20EL PO; -LASI20TA PO; -MAG400TA PO; -MAGN400T5 PO; -NADO20TA PO; -NICO21PAT TD; -NORCOTAB PO; -OMEP10CASR PO; -OMEP20CA3 PO; -PANT40TA2 PO; -PERCOCET PO; -PHYT5TA PO; -POTA10CA PO; -PROP1TAB29 PO; -PROP40TA PO; -SPIR50TA2 PO; -SUCR1SS PO; -SUCR1TA PO; -TESS100C PO; -THIA100T6 PO; -THIA100TA PO; -TRAM50TA2 PO; -Thiamine Hcl PO; -VITA-122 PO; -VITA10002 PO; -VITA500T53 PO; -VITMTA PO; -XANA0.5T PO; -XIFA550T PO; -ZANT300T PO
== END ==
LOC: M RAD 08:39
DX: K46.9 Unspecified abdominal hernia without obstruction or gangrene (principal)
CPT/HCPCS: Q9963

== ENCOUNTER 2018-05-09 15:31 | Emergency (ER) | payer MEDICAID ==
[2018-05-09 17:11] LABS: BASO % 0.4 % (0.0-1.0); EOS # 0.2 10^3/uL (0.0-0.50); EOS % 2.8 % (0.0-3.0); HEMATOCRIT 35.3 % (42.0-52.0); HEMOGLOBIN 12.1 g/dl (13.5-17.5); IMMATURE GRANULOCYTE % 0.2 % (0-3.0); LYMPH # 0.7 10^3/uL (1.5-4.5); LYMPH % 13.8 % (24.0-44.0); MEAN CORPUSCULAR HEMOGLOBIN 32.5 pg (27.0-33.0); MEAN CORPUSCULAR HGB CONC 34.3 g/dl (32.0-36.5); MEAN CORPUSCULAR VOLUME 94.9 fl (80.0-96.0); MONO # 0.5 10^3/uL (0.0-0.8); MONO % 9.9 % (0.0-5.0); NEUTROPHILS # 3.9 10^3/uL (1.8-7.7); NEUTROPHILS % 72.9 % (36.0-66.0); RED BLOOD COUNT 3.72 10^6/uL (4.30-6.10); RED CELL DISTRIBUTION WIDTH 17.3 % (11.5-14.5); WHITE BLOOD COUNT 5.4 10^3/uL (4.0-10.0)
[2018-05-09 17:16] LABS: ALBUMIN 2.9 GM/DL (3.2-5.2); ALBUMIN/GLOBULIN RATIO 0.73 (1.00-1.93); ALKALINE PHOSPHATASE 237 U/L (45-117); ALT/SGPT 66 U/L (12-78); ANION GAP 8 MEQ/L (8-16); AST/SGOT 139 U/L (7-37); BILIRUBIN,TOTAL 2.1 MG/DL (0.2-1.0); BLOOD UREA NITROGEN 6 MG/DL (7-18); CALCIUM LEVEL 8.7 MG/DL (8.5-10.1); CARBON DIOXIDE LEVEL 28 MEQ/L (21-32); CHLORIDE LEVEL 104 MEQ/L (98-107); CREATININE FOR GFR 0.72 MG/DL (0.70-1.30); ETHYL ALCOHOL (ETHANOL) < 0.003 % (0.000-0.010); GLOMERULAR FILTRATION RATE > 60.0 (>60); GLUCOSE, FASTING 120 MG/DL (70-100); LIPASE 277 U/L (73-393); POTASSIUM SERUM 4.2 MEQ/L (3.5-5.1); SODIUM LEVEL 140 MEQ/L (136-145); TOTAL PROTEIN 6.9 GM/DL (6.4-8.2)
[2018-05-09 17:19] LABS: PLATELET COUNT, AUTOMATED 45 10^3/uL (150-450)
[2018-05-09] MEDS: NS 1,000 ML IV (17:32)
[2018-05-09] MEDS: KETOROLAC 30 MG/ML VIAL (J1885) IV (17:32)
[2018-05-09] MEDS: PANTOPRAZOLE 40MG INJ (PROTONIX) (C9113) IV (17:32)
[2018-05-09] MEDS: ONDANSETRON 4MG/2ML VIAL (J2405) IV (17:32)
[2018-05-09] MEDS: AUGMENTIN 875 MG TAB PO (19:38)
[2018-05-09] MEDS: NORCO 5/325MG TABLET (BULK FOR ED) PO (19:39)
== END 2018-05-09 19:48 | disposition home or self-care (01) ==
LOC: M ED 15:31
DX: K81.9 Cholecystitis, unspecified (principal); K74.69 Other cirrhosis of liver; F17.210 Nicotine dependence, cigarettes, uncomplicated
CPT/HCPCS: C9113

== ENCOUNTER 2018-05-13 10:40 | Emergency (ER) | payer MEDICAID ==
[2018-05-13] MEDS: METOCLOPRAMIDE INJ 10MG/2ML VIAL (J2765) IV (12:53)
[2018-05-13] MEDS: KETOROLAC 30 MG/ML VIAL (J1885) IV (12:53)
[2018-05-13] MEDS: NS 1,000 ML IV (12:53)
[2018-05-13 13:05] LABS: BASO % 0.6 % (0.0-1.0); EOS # 0.2 10^3/uL (0.0-0.50); EOS % 4.4 % (0.0-3.0); HEMATOCRIT 36.2 % (42.0-52.0); HEMOGLOBIN 12.6 g/dl (13.5-17.5); IMMATURE GRANULOCYTE % 0.2 % (0-3.0); LYMPH # 0.8 10^3/uL (1.5-4.5); LYMPH % 16.7 % (24.0-44.0); MEAN CORPUSCULAR HEMOGLOBIN 32.9 pg (27.0-33.0); MEAN CORPUSCULAR HGB CONC 34.8 g/dl (32.0-36.5); MEAN CORPUSCULAR VOLUME 94.5 fl (80.0-96.0); MONO # 0.7 10^3/uL (0.0-0.8); MONO % 13.7 % (0.0-5.0); NEUTROPHILS # 3.2 10^3/uL (1.8-7.7); NEUTROPHILS % 64.4 % (36.0-66.0); RED BLOOD COUNT 3.83 10^6/uL (4.30-6.10); RED CELL DISTRIBUTION WIDTH 16.8 % (11.5-14.5)
[2018-05-13 13:14] LABS: INR 1.76; PROTHROMBIN TIME 20.8 SECONDS (12.1-14.4)
[2018-05-13] MEDS: FAMOTIDINE IV BAG 20 MG in APPROPRIATE DILUENT 1 EA IV (13:15)
[2018-05-13 13:18] LABS: AMMONIA 82 uMOL/L (<32)
[2018-05-13 13:20] LABS: AMPHETAMINES LEVEL URINE POSITIVE (NEGATIVE); BARBITURATES URINE NEGATIVE (NEGATIVE); BENZODIAZEPINES URINE NEGATIVE (NEGATIVE); CANNABINOIDS URINE NEGATIVE (NEGATIVE); COCAINE METABOLITE URINE NEGATIVE (NEGATIVE); METHADONE URINE NEGATIVE (NEGATIVE); OPIATES URINE NEGATIVE (NEGATIVE); PHENCYCLIDINE URINE NEGATIVE (NEGATIVE)
[2018-05-13 13:23] LABS: ALBUMIN 2.7 GM/DL (3.2-5.2); ALBUMIN/GLOBULIN RATIO 0.64 (1.00-1.93); ALKALINE PHOSPHATASE 185 U/L (45-117); ALT/SGPT 63 U/L (12-78); AMYLASE 37 U/L (25-115); ANION GAP 7 MEQ/L (8-16); AST/SGOT 122 U/L (7-37); BILIRUBIN,TOTAL 2.5 MG/DL (0.2-1.0); BLOOD UREA NITROGEN 8 MG/DL (7-18); CALCIUM LEVEL 8.5 MG/DL (8.5-10.1); CARBON DIOXIDE LEVEL 29 MEQ/L (21-32); CHLORIDE LEVEL 103 MEQ/L (98-107); CREATININE FOR GFR 0.91 MG/DL (0.70-1.30); ETHYL ALCOHOL (ETHANOL) < 0.003 % (0.000-0.010); GLOMERULAR FILTRATION RATE > 60.0 (>60); GLUCOSE, FASTING 116 MG/DL (70-100); LIPASE 189 U/L (73-393); POTASSIUM SERUM 4.1 MEQ/L (3.5-5.1); SODIUM LEVEL 139 MEQ/L (136-145); TOTAL PROTEIN 6.9 GM/DL (6.4-8.2)
[2018-05-13 13:24] LABS: PLATELET COUNT, AUTOMATED 42 10^3/uL (150-450)
[2018-05-13 13:25] LABS: IMMATURE PLATELET FRACTION % 8.7 % (0.0-10.9)
== END 2018-05-13 14:42 | disposition home or self-care (01) ==
LOC: M ED 10:40
DX: E72.20 Disorder of urea cycle metabolism, unspecified (principal); K70.30 Alcoholic cirrhosis of liver without ascites; B18.2 Chronic viral hepatitis C; I10 Essential (primary) hypertension; G43.909 Migraine, unspecified, not intractable, without status migrainosus; E78.00 Pure hypercholesterolemia, unspecified; Z72.0 Tobacco use; Z79.899 Other long term (current) drug therapy
CPT/HCPCS: J1885

== ENCOUNTER 2018-06-10 16:00 | Outpatient (RCR) | payer MEDICARE, MEDICAID ==
[~2018-06-10 16:00] MED LIST changes: +ALDA25TA2 PO; +AUGM875T28 PO; +BACT800T5 PO; +DIPH50CA PO; +FLUC10TA PO; +FOLI1TAB5 PO; +FURO20TA2 PO; -GASTROGRAFIN SOLUTION 30ML (Q9963) As Ordered; +HYDR-3363; +HYDR-3363 PO; -ISOVUE-370 76% 100ML VIAL (Q9967) As Ordered; +KEFL500C17 PO; +KLOR10TA76 PO; +LACT10SO29 PO; +LACT20EL PO; +LASI20TA PO; +MAG400TA PO; +MAGN400T5 PO; +NADO20TA PO; +NICO21PAT TD; +NORCOTAB PO; +OMEP10CASR PO; +OMEP20CA3 PO; +PANT40TA3 PO; +PERC5TAB12 PO; +PERCOCET PO; +PHYT5TA PO; +POTA1TAB14 PO; +PROP20TA72 PO; +PROP40TA62 PO; +SERT50TA PO; +SPIR50TA4 PO; +SUCR1SS PO; +SUCR1TA PO; +TESS100C PO; +THIA100T7 PO; +THIA100TA PO; +TRAM50TA2 PO; +TRAZ-160 PO; +Thiamine Hcl PO; +VITA-122 PO; +VITA10002 PO; +VITA500T53 PO; +VITMTA PO; +XANA0.5T PO; +XIFA550T PO; +ZANT300T PO; +ZINC220CA PO; +ZOFR4TAB14 PO
== END 2018-06-14 ==
LOC: M OUTALCOH 16:00
PROVIDERS: ATTEND Psychiatry & Neurology Psychiatry
DX: F10.20 Alcohol dependence, uncomplicated (principal); F11.20 Opioid dependence, uncomplicated; F12.20 Cannabis dependence, uncomplicated; F17.200 Nicotine dependence, unspecified, uncomplicated

== ENCOUNTER 2018-06-25 12:14 | Day surgery (SDC) | payer MEDICARE, MEDICAID ==
[~2018-06-25] VITALS: Ht 188 cm; Wt 102.1 kg
[~2018-06-25 12:14] MED LIST changes: +NS 1,000 ML IV ONE
[2018-06-25] MEDS ORDERED: LIDOCAINE 2% INJ 100 MG/5 ML SDV (FOR ANES.) As Ordered ONE (12:47)
[2018-06-25] MEDS ORDERED: PROPOFOL 200 MG/20 ML VIAL As Ordered ONE ×2 (12:47→14:00)
--- NOTE | 2018-06-25 14:14 | ROOR ---
Patient Name: Escobar aLra Procedure Date: 06/25/2018 1:40 PM Date of : 1975 Age: 43 Room: [facility] Gender: Male Note Status: Finalized Procedure: Upper GI endoscopy Indications: Cirrhosis rule out esophageal varices Providers: Dyllan JEAN MD Referring MD: Florence GARG MD., [facility], Admin. Requesting Provider: Medicines: Monitored Anesthesia Care Complications: No immediate complications. Procedure: Pre-Anesthesia Assessment: - The heart rate, respiratory rate, oxygen saturations, blood pressure, adequacy of pulmonary ventilation, and response to care were monitored throughout the procedure. The Endoscope was introduced through the mouth, and advanced to the second part of duodenum. The upper GI endoscopy was accomplished without difficulty. The patient tolerated the procedure well. Findings: Small (< 5 mm) varices were found in the second portion of the duodenum. Patchy mild inflammation characterized by erythema was found in the gastric antrum. Biopsies were taken with a cold forceps for Helicobacter pylori testing. Moderate portal hypertensive gastropathy was found in the gastric fundus and in the gastric body. Grade II varices were found in the lower third of the esophagus. They were medium in size. Four bands were successfully placed with complete eradication, resulting in deflation of varices. There was no bleeding during the maneuver. Impression: Esophagus: Grade II esophageal varices. Completely eradicated. Banded x 4. Stomach: Portal hypertensive gastropathy.- Antral gastritis. Biopsied. Duodenum: Duodenitis and Small duodenal varices. Recommendation: - Start/continue a Non-selective Beta Piedad such as Propranolol or Nadolol, titrate to heart rate. - Continue present medications. - Repeat upper endoscopy in 3 weeks for retreatment. - My office will call you to reschedule the procedure. Dyllan Jean MD Dyllan JEAN MD 06/25/2018 2:14:01 PM This report has been signed electronically. Number of Addenda: 0 Note Initiated On: 06/25/2018 1:40 PM Estimated Blood Loss: Estimated blood loss: none.
[2018-06-25 14:46] VITALS: BP 118/65
== END 2018-06-25 14:47 | disposition home or self-care (01) ==
LOC: M OPP 12:14
PROVIDERS: ATTEND Internal Medicine Gastroenterology
DX: I86.8 Varicose veins of other specified sites (principal); K29.70 Gastritis, unspecified, without bleeding; K76.6 Portal hypertension; K31.89 Other diseases of stomach and duodenum; K74.60 Unspecified cirrhosis of liver; I85.10 Secondary esophageal varices without bleeding; Z79.899 Other long term (current) drug therapy

== ENCOUNTER 2018-09-02 21:20 | Inpatient (IN) | payer MEDICARE, MEDICAID ==
[~2018-09-02] VITALS: Ht 188 cm; Wt 97.7 kg
[2018-09-02] MEDS: PROPRANOLOL 20 MG TAB PO SCH (21:00)
[~2018-09-02 21:20] MED LIST changes: +FOLI1TAB11 PO; -FOLI1TAB5 PO; -LASI20TA PO; +LASI20TA3 PO; -NS 1,000 ML IV ONE; +SILD100T7 PO; -ZANT300T PO; +ZANT300T9 PO
[2018-09-02] MEDS ORDERED: MORPHINE 2 MG/ML 1ML SYRINGE (J2270) IV ONE (22:45)
[2018-09-02] MEDS ORDERED: NS 500 ML IV ONE (22:45)
[2018-09-02 22:55] LABS: BASO % 0.4 % (0.0-1.0); EOS # 0.1 10^3/uL (0.0-0.50); EOS % 2.5 % (0.0-3.0); HEMATOCRIT 41.2 % (42.0-52.0); HEMOGLOBIN 13.5 g/dl (13.5-17.5); LYMPH # 0.9 10^3/uL (1.5-4.5); LYMPH % 19.1 % (24.0-44.0); MEAN CORPUSCULAR HEMOGLOBIN 32.3 pg (27.0-33.0); MEAN CORPUSCULAR HGB CONC 32.8 g/dl (32.0-36.5); MEAN CORPUSCULAR VOLUME 98.6 fl (80.0-96.0); MONO # 0.9 10^3/uL (0.0-0.8); MONO % 20.9 % (0.0-5.0); NEUTROPHILS # 2.5 10^3/uL (1.8-7.7); NEUTROPHILS % 56.9 % (36.0-66.0); RED BLOOD COUNT 4.18 10^6/uL (4.30-6.10); WHITE BLOOD COUNT 4.5 10^3/uL (4.0-10.0)
[2018-09-02 23:07] LABS: PLATELET COUNT, AUTOMATED 40 10^3/uL (150-450)
[2018-09-02 23:35] LABS: INR 1.79; PARTIAL THROMBOPLASTIN TIME 35.2 SECONDS (25.4-37.6); PROTHROMBIN TIME 21.1 SECONDS (12.1-14.4)
[2018-09-02 23:47] LABS: ALBUMIN 2.6 GM/DL (3.2-5.2); ALT/SGPT 59 U/L (12-78); BILIRUBIN,DIRECT 1.2 MG/DL (0.0-0.2); BILIRUBIN,TOTAL 2.5 MG/DL (0.2-1.0); BLOOD UREA NITROGEN 5 MG/DL (7-18); CARBON DIOXIDE LEVEL 31 MEQ/L (21-32); CHLORIDE LEVEL 100 MEQ/L (98-107); CPK CREATINE PHOSPHOKINASE 171 U/L (39-308); CREATININE FOR GFR 0.93 MG/DL (0.70-1.30); ETHYL ALCOHOL (ETHANOL) < 0.003 % (0.000-0.010); GLOMERULAR FILTRATION RATE > 60.0 (>60); GLUCOSE, FASTING 88 MG/DL (70-100); POTASSIUM SERUM 3.7 MEQ/L (3.5-5.1); SODIUM LEVEL 137 MEQ/L (136-145)
[2018-09-03] MEDS ORDERED: LACTULOSE 20 GM/30 ML SYRUP UD PO ONE
[2018-09-03] MEDS ORDERED: PROP40TA62 PO (00:06)
[2018-09-03] MEDS ORDERED: HYDR-3363 PO (00:06)
[2018-09-03] MEDS ORDERED: SPIR50TA4 PO (00:06)
[2018-09-03] MEDS ORDERED: hydrOXYzine 25 MG TAB PO PRN (01:30)
[2018-09-03] MEDS ORDERED: traZODone 50 MG TAB PO PRN (01:30)
--- NOTE | 2018-09-03 02:22 | HPE ---
DATE OF ADMISSION: 09/03/2018 CHIEF COMPLAINT: Confusion. HISTORY OF PRESENT ILLNESS: The patient is a 43-year-old male with significant past medical history of ethanol (EtOH) abuse; however, he has been sober for several months, also alcoholic cirrhosis, bipolar disorder, depression who presents to the emergency room brought in by his significant other who lives some distance away from the patient. She states she came in because he has been confused. The patient is mildly confused. He denies any cough, chest pain, shortness of breath, fevers, chills, urinary symptoms, abdominal pain, constipation or diarrhea. He states he has been out of his medication for the last two weeks because of insurance issues. He is not appearing toxic. He is likely in hepatic encephalopathy because of medication noncompliance because he has not had access to his lactulose. PAST MEDICAL HISTORY: See history of the present illness (HPI). PAST SURGICAL HISTORY: None. HOME MEDICATIONS: Include: - lactulose - folic acid - Lasix - hydroxyzine - magnesium oxide - Prilosec - potassium - propranolol - spironolactone - thiamine - trazodone ALLERGIES: No known drug allergies. SOCIAL HISTORY: He is a former alcohol abuse. Denies liane or illicit drug use. FAMILY HISTORY: Family history is noncontributory. REVIEW OF SYSTEMS: A 12-point review of systems was completed, all of which were negative except those listed in the history of the present illness. VITAL SIGNS ON ADMISSION: Temperature 98, pulse 76, respirations 20, blood pressure 117/62. PHYSICAL EXAMINATION: General: He is lethargic but in no acute distress. Head is normocephalic, atraumatic. Eyes: Extraocular movements are intact. There is some scleral icterus. Neck is supple. No jugular venous pressure (JVP). Lungs: Clear to auscultation. No crackles, wheezes, rales or rhonchi. Abdomen: Soft. There is mild ascites. Positive bowel sounds. Extremities: 1+ edema. No calf tenderness. Skin: Intact. No rashes, lesions or breakdown. Neurological: Alert and oriented (A and O) times three. He has no focal deficits. He is sluggish to respond. LABORATORIES AND IMAGING COMPLETED IN THE EMERGENCY DEPARTMENT: White count of 4, hemoglobin and hematocrit (H and H) of 13/41, platelet count of 40. Coagulation panel (coags) show INR of 1.79. Basic metabolic panel (BMP) shows a BUN and creatinine of 5/0.93. Liver function tests (LFTs) 2.5, 1.21, 27, 59 and 134. Blood alcohol level is negative. No imaging was done. ASSESSMENT AND PLAN: 1. Hepatic encephalopathy likely secondary to medication noncompliance. Will rule out any infectious causes. Hemoglobin is stable. There does not appear to be a gastrointestinal (GI) bleed or dehydration as the cause. The BUN is also not elevated. We will get a urinalysis (UA) and chest x-ray. We will do lactulose 30 every 6. Titrate as needed to 2 to 3 bowel movements per day. 2. For ethanol (EtOH) related cirrhosis: We will continue Lasix, spironolactone, proton pump inhibitor (PPI), propranolol for variceal prophylaxis. 3. For mood disorder: We will continue his trazodone as well as his hydroxyzine for insomnia. 4. Supportive deep vein thrombosis (DVT) prophylaxis: Sequential compression devices (SCDs). 5. Gastrointestinal (GI) prophylaxis: Not indicated. 6. Diet: Liver diet.
[2018-09-03] MEDS: LACTULOSE 20 GM/30 ML SYRUP UD PO SCH ×4 (06:28→23:19)
[2018-09-03 08:00] VITALS: BP 127/64
[2018-09-03 08:05] LABS: APPEARANCE, URINE CLEAR (CLEAR); BACTERIA, URINE AUTO NEGATIVE (NEGATIVE); BILIRUBIN, URINE AUTO 1+ (NEGATIVE); BLOOD, URINE BLOOD NEGATIVE (NEGATIVE); COLOR, URINE AMBER (YELLOW); GLUCOSE, URINE (UA) AUTO NEGATIVE (NEGATIVE); KETONE, URINE AUTO NEGATIVE (NEGATIVE); LEUKOCYTE ESTERASE, URINE AUTO NEGATIVE (NEGATIVE); MUCUS, URINE SMALL (NEGATIVE); NITRITE, URINE AUTO NEGATIVE (NEGATIVE); PROTEIN, URINE AUTO NEGATIVE (NEGATIVE); RBC, URINE AUTO 5 /HPF (0-3); SPECIFIC GRAVITY URINE AUTO 1.012 (1.002-1.035); SQUAMOUS EPITHELIAL CELL UR AU 0 /HPF (0-6); WBC, URINE AUTO 1 /HPF (0-3)
--- NOTE | 2018-09-03 08:31 | REP ---
Chest one-view HISTORY: Cough Comparison: 10/18/2016 The lungs are clear. The heart is normal in size. The pulmonary vasculature is normal in appearance. Impression: No acute disease. Electronically Signed by Frantz Franklin MD 09/03/2018 08:22 A
[2018-09-03] MEDS ORDERED: ISOVUE-370 76% 100ML VIAL (Q9967) As Ordered ONE (08:48)
[2018-09-03] MEDS: MORPHINE 4 MG/ML 1ML VIAL/SYRINGE (J2270) IV PRN ×3 (08:48→23:28)
[2018-09-03] MEDS: FUROSEMIDE 20 MG TAB PO SCH (08:49)
[2018-09-03] MEDS: SPIRONOLACTONE 50 MG TAB PO SCH (08:49)
[2018-09-03] MEDS: FOLIC ACID 1 MG TAB PO SCH (08:49)
[2018-09-03] MEDS: PROPRANOLOL 20 MG TAB PO SCH ×2 (08:49→20:18)
[2018-09-03] MEDS: THIAMINE 100 MG TAB PO SCH (08:49)
[2018-09-03] MEDS: MAGNESIUM OXIDE 400 MG TAB (MAG-OX) PO SCH (08:49)
[2018-09-03] MEDS: OMEPRAZOLE 20 MG CAP PO SCH (08:49)
[2018-09-03] MEDS: POTASSIUM CHLORIDE 10 MEQ SR TABLET PO SCH (08:50)
[2018-09-03 10:09] LABS: BASO % 0.3 % (0.0-1.0); EOS # 0.1 10^3/uL (0.0-0.50); EOS % 4.3 % (0.0-3.0); HEMATOCRIT 34.5 % (42.0-52.0); LYMPH # 0.8 10^3/uL (1.5-4.5); LYMPH % 25.9 % (24.0-44.0); MEAN CORPUSCULAR HEMOGLOBIN 32.5 pg (27.0-33.0); MEAN CORPUSCULAR HGB CONC 32.8 g/dl (32.0-36.5); MEAN CORPUSCULAR VOLUME 99.1 fl (80.0-96.0); MONO # 0.7 10^3/uL (0.0-0.8); NEUTROPHILS # 1.4 10^3/uL (1.8-7.7); NEUTROPHILS % 46.2 % (36.0-66.0); RED BLOOD COUNT 3.48 10^6/uL (4.30-6.10); WHITE BLOOD COUNT 3.1 10^3/uL (4.0-10.0)
[2018-09-03 10:19] LABS: INR 1.91; PROTHROMBIN TIME 22.2 SECONDS (12.1-14.4)
[2018-09-03 10:20] LABS: PARTIAL THROMBOPLASTIN TIME 35.8 SECONDS (25.4-37.6)
[2018-09-03 10:23] LABS: PLATELET COUNT, AUTOMATED 34 10^3/uL (150-450)
[2018-09-03 10:25] LABS: HEMOGLOBIN 11.3 g/dl (13.5-17.5)
[2018-09-03 10:39] LABS: ALBUMIN 2.3 GM/DL (3.2-5.2); ALT/SGPT 45 U/L (12-78); BILIRUBIN,TOTAL 1.9 MG/DL (0.2-1.0); BLOOD UREA NITROGEN 4 MG/DL (7-18); CALCIUM LEVEL 7.5 MG/DL (8.5-10.1); CARBON DIOXIDE LEVEL 31 MEQ/L (21-32); CHLORIDE LEVEL 100 MEQ/L (98-107); CREATININE FOR GFR 0.79 MG/DL (0.70-1.30); GLOMERULAR FILTRATION RATE > 60.0 (>60); GLUCOSE, FASTING 117 MG/DL (70-100); POTASSIUM SERUM 3.7 MEQ/L (3.5-5.1); SODIUM LEVEL 136 MEQ/L (136-145); TOTAL PROTEIN 5.9 GM/DL (6.4-8.2)
--- NOTE | 2018-09-03 11:43 | REP ---
CT of the abdomen and pelvis with IV contrast, without bowel contrast: Comparison is 04/24/2018. The visualized lung kidd are unremarkable and unchanged. The liver demonstrates a nodular margin compatible with cirrhosis, unchanged. The gallbladder is collapsed and unremarkable. The pancreas is unremarkable. There is marked splenomegaly, unchanged. There are varices in the splenic hilus, unchanged. The umbilical vein is recannulated, unchanged. These findings suggest portal hypertension. The adrenals are unremarkable. The kidneys are unremarkable. There is moderate distension of the entire small bowel except for last 12 inches. of the terminal ileum which is nondilated. The dilated small bowel is predominately fluid-filled with very few air fluid levels. This finding is nonspecific and could represent small bowel obstruction or ileus. There is no colonic distension. There is no pneumoperitoneum. There is no ascites. The pelvis: There is no ascites. The bladder is unremarkable. The pelvic bowel loops are unremarkable. There is no adenopathy. Impression: Moderately distended fluid-filled small bowel except that half the last 12 inches of terminal ileum are nondilated . This could represent small bowel obstruction or ileus. There are findings compatible with hepatic cirrhosis and portal hypertension, unchanged from the prior study. Marked splenomegaly, unchanged. No ascites or pneumoperitoneum. Electronically Signed by Axel Muniz MD 09/03/2018 11:34 A
[2018-09-03] MEDS ORDERED: MULTIVITAMINS/MINERALS THERAP 1 TAB PO ONE (12:15)
[2018-09-03] MEDS: METOCLOPRAMIDE 10 MG TAB PO SCH ×3 (12:24→23:19)
[2018-09-03 12:30] VITALS: BP 137/66
[2018-09-03] MEDS: NS 1,000 ML IV SCH ×2 (13:15→23:19)
[2018-09-03] MEDS: PIPERACILLIN/TAZOBACTAM SOD 3.375 GM in D5W MINI-BAG PLUS 50 ML IV SCH ×3 (13:16→23:53)
[2018-09-03 14:00] VITALS: BP 112/58
--- NOTE | 2018-09-03 16:21 | IPNPDOC ---
Text Note Date of Service The patient was seen on 09/03/18. NOTE Patient seen and examined. Mentation improving. Ammonia level trending down. No nausea vomiting. States he had midline abdominal pain sharp and nonspecific, nonradiating. States he feels distended. Patient was tender on exam however did not have any rebound guarding or rigidity. Patient was sent for CT abdomen pelvis with notable ? Small bowel obstruction versus ileus. Dr. Gallegos was consulted, and started the patient on Reglan. Patient was also started on Zosyn in the interim. Blood culture sent. Continue to be on lactulose. States he stills drinks alcohol, with last drink was 3 weeks ago. Understands that unless he stops drinking, he will not be a candidate for liver transplant. Hemodynamically stable. I have answered all of the patient as well as his fiance's questions to their satisfaction. VS,Fishbone, I+O VS, Fishbone, I+O Laboratory Tests 09/02/18 22:00 Red Blood Count 4.18 L, Mean Corpuscular Volume 98.6 H, Mean Corpuscular Hemoglobin 32.3, Mean Corpuscular Hemoglobin Concent 32.8, Red Cell Distribution Width 16.6 H, Neutrophils (%) (Auto) 56.9, Lymphocytes (%) (Auto) 19.1 L, Monocytes (%) (Auto) 20.9 H, Eosinophils (%) (Auto) 2.5, Basophils (%) (Auto) 0.4, Neutrophils # (Auto) 2.5, Lymphocytes # (Auto) 0.9 L, Monocytes # (Auto) 0.9 H, Eosinophils # (Auto) 0.1, Basophils # (Auto) 0.0 09/02/18 23:16 09/03/18 09:50 Red Blood Count 3.48 L, Mean Corpuscular Volume 99.1 H, Mean Corpuscular Hemoglobin 32.5, Mean Corpuscular Hemoglobin Concent 32.8, Red Cell Distribution Width 16.5 H, Neutrophils (%) (Auto) 46.2, Lymphocytes (%) (Auto) 25.9, Monocytes (%) (Auto) 23.0 H, Eosinophils (%) (Auto) 4.3 H, Basophils (%) (Auto) 0.3, Neutrophils # (Auto) 1.4 L, Lymphocytes # (Auto) 0.8 L, Monocytes # (Auto) 0.7, Eosinophils # (Auto) 0.1, Basophils # (Auto) 0.0, Calcium Level 7.5 L, A spartate Amino Transf (AST/SGOT) 98 H, Alanine Aminotransferase (ALT/SGPT) 45, Alkaline Phosphatase 123 H, Total Bilirubin 1.9 H, Total Protein 5.9 L, Albumin 2.3 L Vital Signs Date Time Temp Pulse Resp B/P (MAP) Pulse Ox O2 Delivery O2 Flow Rate FiO2 09/03/18 14:00 97.7 61 20 112/58 (76) 96 09/03/18 08:00 2.0 09/03/18 06:20 Nasal Cannula ASHANTI BURNS MD Sep 03, 2018 16:21
[2018-09-03 20:00] VITALS: BP 114/53
[2018-09-03] MEDS: NICOTINE 14 MG/24 HR TRANSDERMAL TD SCH (20:17)
[2018-09-04] MEDS: METOCLOPRAMIDE 10 MG TAB PO SCH ×4 (05:15→23:44)
[2018-09-04] MEDS: LACTULOSE 20 GM/30 ML SYRUP UD PO SCH ×4 (05:16→23:44)
[2018-09-04] MEDS: PIPERACILLIN/TAZOBACTAM SOD 3.375 GM in D5W MINI-BAG PLUS 50 ML IV SCH ×2 (05:52→11:27)
[2018-09-04 06:07] LABS: HEMATOCRIT 36.5 % (42.0-52.0); HEMOGLOBIN 12.3 g/dl (13.5-17.5); MEAN CORPUSCULAR HEMOGLOBIN 32.8 pg (27.0-33.0); MEAN CORPUSCULAR HGB CONC 33.7 g/dl (32.0-36.5); MEAN CORPUSCULAR VOLUME 97.3 fl (80.0-96.0); PLATELET COUNT, AUTOMATED 35 10^3/uL (150-450); RED BLOOD COUNT 3.75 10^6/uL (4.30-6.10); WHITE BLOOD COUNT 3.1 10^3/uL (4.0-10.0)
[2018-09-04 06:39] LABS: ALBUMIN 2.2 GM/DL (3.2-5.2); ALT/SGPT 48 U/L (12-78); BILIRUBIN,TOTAL 2.4 MG/DL (0.2-1.0); BLOOD UREA NITROGEN 4 MG/DL (7-18); CALCIUM LEVEL 7.6 MG/DL (8.5-10.1); CARBON DIOXIDE LEVEL 30 MEQ/L (21-32); CHLORIDE LEVEL 106 MEQ/L (98-107); CREATININE FOR GFR 0.76 MG/DL (0.70-1.30); GLOMERULAR FILTRATION RATE > 60.0 (>60); GLUCOSE, FASTING 79 MG/DL (70-100); SODIUM LEVEL 139 MEQ/L (136-145); TOTAL PROTEIN 6.2 GM/DL (6.4-8.2)
[2018-09-04 08:00] VITALS: BP 120/66
[2018-09-04] MEDS: NICOTINE 14 MG/24 HR TRANSDERMAL TD SCH (09:00)
[2018-09-04] MEDS: SPIRONOLACTONE 50 MG TAB PO SCH (09:00)
[2018-09-04] MEDS: POTASSIUM CHLORIDE 10 MEQ SR TABLET PO SCH (09:10)
[2018-09-04] MEDS: FUROSEMIDE 20 MG TAB PO SCH (09:11)
[2018-09-04] MEDS: THIAMINE 100 MG TAB PO SCH (09:11)
[2018-09-04] MEDS: MAGNESIUM OXIDE 400 MG TAB (MAG-OX) PO SCH (09:11)
[2018-09-04] MEDS: OMEPRAZOLE 20 MG CAP PO SCH (09:11)
[2018-09-04] MEDS: MULTIVITAMINS/MINERALS THERAP 1 TAB PO SCH (09:11)
[2018-09-04] MEDS: PROPRANOLOL 20 MG TAB PO SCH ×2 (09:12→19:44)
[2018-09-04] MEDS: NS 1,000 ML IV SCH (09:13)
[2018-09-04] MEDS: FOLIC ACID 1 MG TAB PO SCH (09:14)
--- NOTE | 2018-09-04 12:14 | IPNPDOC ---
Text Note Date of Service The patient was seen on 09/04/18. NOTE No acute events overnight. Tolerating diet. Denies nausea, emesis, fevers, or abd pains. He is passing flatus, and had a few BMs. VSSAF NAD abd - soft, nt, nd, small ventral hernia that is nonreducible without pain labs - below A) 43y/o male with gastroenteritis and ileus that is resolving P) reg diet ambulate likely stable for dc in am if tolerating reg diet will follow as needed Phillip Gallegos DO VS,[place], I+O VS, Fishbone, I+O Laboratory Tests 09/04/18 05:49 Red Blood Count 3.75 L, Mean Corpuscular Volume 97.3 H, Mean Corpuscular Hemoglobin 32.8, Mean Corpuscular Hemoglobin Concent 33.7, Red Cell Distribution Width 15.9 H, Calcium Level 7.6 L, Aspartate Amino Transf (AST/SGOT) 105 H, Alanine Aminotransferase (ALT/SGPT) 48, Alkaline Phosphatase 115, Total Bilirubin 2.4 H, Total Protein 6.2 L, Albumin 2.2 L Vital Signs Date Time Temp Pulse Resp B/P (MAP) Pulse Ox O2 Delivery O2 Flow Rate FiO2 09/04/18 09:12 70 120/66 09/03/18 23:38 14 09/03/18 20:00 99.5 92 09/03/18 08:00 2.0 09/03/18 06:20 Nasal Cannula I&O- Last 24 Hours up to 6 AM 09/04/18 06:00 Intake Total 3095 ml Output Total 2200 ml Balance 895 ml LUPIS GALLEGOS DO Sep 04, 2018 12:14
--- NOTE | 2018-09-04 12:59 | IPNPDOC ---
Text Note Date of Service The patient was seen on 09/04/18. NOTE Subjective: Pt notes that his abd is no longer distended, he is passing flatus, had 2 BM since yesterday. No Abd pain. No N/V. Started on liquid diet this am, and advanced to regular by surg. Objective: Vitals: (see below) General: No acute distress, laying comfortably in bed. HEENT: Moist mucous membranes. Neck: No JVD or lymphadenopathy Cardiac: RRR, No murmurs Pulm: Clear to auscultation b/l. No wheezing, rhonchi Abd: NT/ND + BS Ext: No edema or cyanosis Numerous tattoos. Neuro: Strength 5/5 BUE and BLE. CN 2-12 intact. F to N intact Negative pronator drift. AAO x3 Labs (see below) Images: CT Abd/pelvis 09/03/18 Impression: Moderately distended fluid-filled small bowel except that half the last 12 inches of terminal ileum are nondilated . This could represent small bowel obstruction or ileus. There are findings compatible with hepatic cirrhosis and portal hypertension, unchanged from the prior study. Marked splenomegaly, unchanged. No ascites or pneumoperitoneum. Assessment/Plan 1. Hepatic encephalopathy secondary to noncompliance, improving. Patient ran out of his lactulose states he was unable to obtain. Lactulose has been restarted, ammonia level is improving from greater than 100->72. Patient denies any bleeding at this time. No fevers or chills. No abdominal pain. No signs of infection. Continue to monitor. Case management has been consulted to assist patient with obtaining his medications. 2. Ileus - improving. Patient's abdomen is no longer distended. No abdominal pain. Having flatus and bowel movements. Diet is being advanced. 3. History of alcoholic cirrhosis- patient states his last drink was recently, 3 beers. I have advised patient that before he's entertained as a candidate for a liver transplant, he will need to stop drinking alcohol altogether. Counseled on cessation. On Lasix/spironolactone. Will need outpatient follow-up with GI and PCP. 4. Esophageal varices status post banding 4 in the past. On propranolol. No abdominal pain at this time. No bleeding. 5. History of bipolar disorder- stable. Will need outpatient follow-up. DVT prophylaxis SCDs Overall prognosis guarded. Plan to discharge in the next 24 hours if continues to improve. VS,Fishbone, I+O VS, Fishbone, I+O Laboratory Tests 09/04/18 05:49 Red Blood Count 3.75 L, Mean Corpuscular Volume 97.3 H, Mean Corpuscular Hemoglobin 32.8, Mean Corpuscular Hemoglobin Concent 33.7, Red Cell Distribution Width 15.9 H, Calcium Level 7.6 L, Aspartate Amino Transf (AST/SGOT) 105 H, Alanine Aminotransferase (ALT/SGPT) 48, Alkaline Phosphatase 115, Total Bilirubin 2.4 H, Total Protein 6.2 L, Albumin 2.2 L Vital Signs Date Time Temp Pulse Resp B/P (MAP) Pulse Ox O2 Delivery O2 Flow Rate FiO2 09/04/18 09:12 70 120/66 09/03/18 23:38 14 09/03/18 20:00 99.5 92 09/03/18 08:00 2.0 09/03/18 06:20 Nasal Cannula I&O- Last 24 Hours up to 6 AM 09/04/18 05:59 Intake Total 3095 ml Output Total 2200 ml Balance 895 ml ASHANTI BURNS MD Sep 04, 2018 12:59
[2018-09-04 14:00] VITALS: BP 102/51
--- NOTE | 2018-09-04 17:28 | CR ---
DATE OF CONSULTATION: 09/04/2018 REASON FOR CONSULTATION: Abdominal pain. HISTORY OF PRESENT ILLNESS: The patient is 43-year-old male with history of EtOH (ethanol) abuse and cirrhosis who presented to the emergency on September 03 with confusion. After admission during rounding, the hospitalist noted that he had some abdominal tenderness and checked a CT, which showed possible ileus versus small-bowel obstruction; therefore, I was consulted to evaluate. I went to evaluate him in the emergency room. He was very sleepy; however, he said that he was having some abdominal pains. Denied any nausea or vomiting. Nurses state that he ate a full breakfast without any complications of any kind. He still is complaining of the abdominal pain but has no nausea or vomiting. No fevers or chills. Never had any symptoms like this in the past. Denies any recent bowel movements or passing flatus. He has not had any recent changes in diet or activity. No recent trauma to the abdomen. Denies any other complaints. PAST MEDICAL HISTORY: Positive for: 1. EtOH abuse. 2. Alcoholic cirrhosis. 3. Bipolar. 4. Depression. PAST SURGICAL HISTORY: None. HOME MEDICATIONS: Please see medication reconciliation. ALLERGIES: None. SOCIAL HISTORY: Denies any current drug, alcohol, or tobacco abuse. FAMILY HISTORY: Noncontributory. REVIEW OF SYSTEMS: Pertinent positives and negatives stated in history of present illness (HPI). PHYSICAL EXAMINATION: GENERAL: Alert and oriented times three. No acute distress. VITAL SIGNS: Temperature 98, pulse 62, respirations 18, blood pressure 127/64, pulse oximetry 93% of 2 liters nasal cannula. HEENT: Pupils equally round and react to light accommodation. HEART: S1, S2, regular rate and rhythm. LUNGS: Clear to auscultation bilaterally. ABDOMEN: Soft, slightly distended. Tender to palpation along the midline that does appear to be a ventral midline hernia superior to the umbilicus, however, does not correlate with any findings on CT scan, so this may be a lipoma versus sebaceous cyst as opposed to a ventral hernia however, he is tender right at that location. EXTREMITIES: No clubbing, cyanosis, or edema. LABORATORY DATA: White count 3.1, hemoglobin 11.3, platelets 34. Potassium 3.7, creatinine 0.79. Total bilirubin 1.9, AST 98, ALT 45, alkaline phosphatase 123. Ammonia level 113. IMAGING: CT abdomen and pelvis does show moderately distended fluid-filled small bowel except for the distal portion of the terminal ileum. Could represent partial small-bowel obstruction versus ileus. He also has extensive hepatic cirrhosis, portal hypertension, which is unchanged from prior imaging. ASSESSMENT AND PLAN: The patient 43-year-old male with alcoholic cirrhosis, hepatitis, thrombocytopenia, abdominal distension, likely secondary to an ileus secondary to a possible gastroenteritis. Recommendation is time is to start with Reglan and keep him on a clear liquid diet. I would avoid nasogastric (NG) tube placement due to the thrombocytopenia and potential for bleeding, especially since he has not had any nausea or vomiting. Keep him like this overnight. If he tolerates it well, starts to pass gas, or have any bowel movement, then he can slowly be advanced in his diet. Further recommendations to follow.
[2018-09-04 22:00] VITALS: BP 109/57
[2018-09-05] MEDS: METOCLOPRAMIDE 10 MG TAB PO SCH (05:38)
[2018-09-05] MEDS: LACTULOSE 20 GM/30 ML SYRUP UD PO SCH (05:38)
[2018-09-05 06:00] VITALS: BP 113/57
[2018-09-05 06:45] LABS: HEMATOCRIT 39.8 % (42.0-52.0); HEMOGLOBIN 13.1 g/dl (13.5-17.5); MEAN CORPUSCULAR HGB CONC 32.9 g/dl (32.0-36.5); MEAN CORPUSCULAR VOLUME 97.1 fl (80.0-96.0); WHITE BLOOD COUNT 3.1 10^3/uL (4.0-10.0)
[2018-09-05 06:56] LABS: PLATELET COUNT, AUTOMATED 41 10^3/uL (150-450)
[2018-09-05 07:01] LABS: ALBUMIN 2.2 GM/DL (3.2-5.2); ALT/SGPT 47 U/L (12-78); BILIRUBIN,TOTAL 1.6 MG/DL (0.2-1.0); BLOOD UREA NITROGEN 3 MG/DL (7-18); CARBON DIOXIDE LEVEL 31 MEQ/L (21-32); CHLORIDE LEVEL 104 MEQ/L (98-107); CREATININE FOR GFR 0.77 MG/DL (0.70-1.30); GLOMERULAR FILTRATION RATE > 60.0 (>60); GLUCOSE, FASTING 100 MG/DL (70-100); POTASSIUM SERUM 4.2 MEQ/L (3.5-5.1); SODIUM LEVEL 138 MEQ/L (136-145); TOTAL PROTEIN 6.4 GM/DL (6.4-8.2)
[2018-09-05] MEDS: FUROSEMIDE 20 MG TAB PO SCH (09:03)
[2018-09-05] MEDS: MULTIVITAMINS/MINERALS THERAP 1 TAB PO SCH (09:03)
[2018-09-05] MEDS: FOLIC ACID 1 MG TAB PO SCH (09:03)
[2018-09-05 09:04] VITALS: BP 109/59
[2018-09-05] MEDS: MAGNESIUM OXIDE 400 MG TAB (MAG-OX) PO SCH (09:04)
[2018-09-05] MEDS: POTASSIUM CHLORIDE 10 MEQ SR TABLET PO SCH (09:04)
[2018-09-05] MEDS: SPIRONOLACTONE 50 MG TAB PO SCH (09:04)
[2018-09-05] MEDS: OMEPRAZOLE 20 MG CAP PO SCH (09:04)
[2018-09-05] MEDS: THIAMINE 100 MG TAB PO SCH (09:04)
[2018-09-05] MEDS: PROPRANOLOL 20 MG TAB PO SCH (09:04)
[2018-09-05] MEDS: NICOTINE 14 MG/24 HR TRANSDERMAL TD SCH (09:16)
[2018-09-05] MEDS ORDERED: LASI20TA3 PO (10:29)
[2018-09-05] MEDS ORDERED: SPIR50TA4 PO (10:29)
[2018-09-05] MEDS ORDERED: LACT10SO29 PO (10:29)
[2018-09-05] MEDS ORDERED: THIA100T7 PO (10:29)
[2018-09-05] MEDS ORDERED: PROP40TA62 PO (10:29)
--- NOTE | 2018-09-05 17:15 | DS.PDOC ---
Discharge Summary General Date of Admission Sep 03, 2018 at 01:24 Date of Discharge 09/05/18 Attending Physician: ASHANTI BURNS MD Specialist/Consultants Involve: LUPIS ISABEL DO Discharge Summary PROCEDURES PERFORMED DURING STAY: None. ADMITTING/DISCHARGE DIAGNOSES: 1. Hepatic encephalopathy secondary to noncompliance, improving. Patient ran out of his lactulose states he was unable to obtain. Lactulose has been restarted, ammonia level is improving. Patient denies any bleeding at this time. No fevers or chills. No abdominal pain. No signs of infection. Continue to monitor. Case management has been consulted to assist patient with obtaining his medications. 2. Ileus - resolved. Patient's abdomen is no longer distended. No abdominal pain. Having flatus and bowel movements. Diet is being advanced. 3. History of alcoholic cirrhosis- patient states his last drink was recently, 3 beers. I have advised patient that before he's entertained as a candidate for a liver transplant, he will need to stop drinking alcohol altogether. Counseled on cessation. On Lasix/spironolactone. Will need outpatient follow-up with GI and PCP. 4. Esophageal varices status post banding 4 in the past. On propranolol. No abdominal pain at this time. No bleeding. 5. History of bipolar disorder- stable. Will need outpatient follow-up. COMPLICATIONS/CHIEF COMPLAINT: Altered mental status HISTORY OF PRESENT ILLNESS/HOSPITAL COURSE: This is a 43-year-old male past medical history of alcohol cirrhosis, esophageal varices, bipolar disorder presents with altered mental status. The patient had ran out of his lactulose for the past 2 weeks, however finally was able to obtain that today before admission. Patient's fianc was talking to him over the phone and noticed that he was confused for which the patient was sent to the ED. Patient was noted to have hepatic encephalopathy secondary to noncompliance. He was restarted on lactulose and significantly improved. Of note the patient did complain of abdominal pain and had a CT of the abdomen and pelvis which noted ileus/was consulted. The patient had refused an NG tube however was started on Reglan and had significant improvement of his abdominal pain. His ileus has resolved. Patient is now tolerating a diet. He is back to his baseline. Patient is alert and oriented 3 with no focal deficits. The patient will be discharged home with outpatient follow-up. The patient was counseled I'll call cessation and acknowledges that he will stop drinking alcohol as he will not be a candidate for transplant until he is alcohol free for at least 6 months. The patient was scheduled to follow-up with gastroenterology and was advised to continue to follow up closely. The patient was advised to return to the ED if symptoms worsen. DISCHARGE MEDICATIONS: Please see below. ALLERGIES: Please see below. PHYSICAL EXAMINATION ON DISCHARGE: Vitals: (see below) General: No acute distress, laying comfortably in bed. HEENT: Moist mucous membranes. Neck: No JVD or lymphadenopathy Cardiac: RRR, No murmurs Pulm: Clear to auscultation b/l. No wheezing, rhonchi Abd: NT/ND + BS Ext: No edema or cyanosis Numerous tattoos. Neuro: Strength 5/5 BUE and BLE. CN 2-12 intact. F to N intact Negative pronator drift. AAO x3 LABORATORY DATA: Please see below. IMAGING: CT Abd/pelvis 09/03/18 Impression: Moderately distended fluid-filled small bowel except that half the last 12 inches of terminal ileum are nondilated . This could represent small bowel obstruction or ileus. There are findings compatible with hepatic cirrhosis and portal hypertension, unchanged from the prior study. Marked splenomegaly, unchanged. No ascites or pneumoperitoneum. PROGNOSIS: Poor given comorbidities ACTIVITY: As tolerated. DIET: Low Na diet DISCHARGE PLAN/DISPOSITION: DISCHARGE INSTRUCTIONS: 1. F/u with PCP and GI in 1-2 weeks. Return to ED if symptoms worsen. DISCHARGE CONDITION: Stable. TIME SPENT ON DISCHARGE: Greater than 30 minutes. Vital Signs/I&Os Vital Signs Date Time Temp Pulse Resp B/P (MAP) Pulse Ox O2 Delivery O2 Flow Rate FiO2 09/05/18 09:04 60 109/59 09/05/18 06:00 98.9 18 93 09/03/18 08:00 2.0 09/03/18 06:20 Nasal Cannula I&O- Last 24 Hours up to 6 AM 09/05/18 06:00 Intake Total 1760 ml Output Total 0 ml Balance 1760 ml Laboratory Data Labs 24H Laboratory Tests 2 09/05/18 06:17: Nucleated Red Blood Cells % (auto) 0.0, Immature Platelet Fraction 7.4, Anion Gap 3L, Glomerular Filtration Rate > 60.0, Blood Urea Nitrogen 3L, Creatinine 0.77, Sodium Level 138, Potassium Level 4.2, Chloride Level 104, Carbon Dioxide Level 31, Calcium Level 8.0L, Aspartate Amino Transf (AST/SGOT) 100H, Alanine Aminotransferase (ALT/SGPT) 47, Alkaline Phosphatase 135H, Total Bilirubin 1.6H, Total Protein 6.4, Albumin 2.2L, Albumin/Globulin Ratio 0.52L 09/05/18 09:17: Ammonia 81H CBC/BMP Laboratory Tests 09/05/18 06:17 Red Blood Count 4.10 L, Mean Corpuscular Volume 97.1 H, Mean Corpuscular H emoglobin 32.0, Mean Corpuscular Hemoglobin Concent 32.9, Red Cell Distribution Width 15.6 H, Calcium Level 8.0 L, Aspartate Amino Transf (AST/SGOT) 100 H, Alanine Aminotransferase (ALT/SGPT) 47, Alkaline Phosphatase 135 H, Total Bilirubin 1.6 H, Total Protein 6.4, Albumin 2.2 L Microbiology Microbiology 09/03/18 Blood Culture - Preliminary, Resulted No Growth after 48 hours. All Specime... 09/03/18 Blood Culture - Preliminary, Resulted No Growth after 48 hours. All Specime... Discharge Medications Scheduled Folic Acid (Folic Acid) 1 Mg Tab, 1 MG PO DAILY, (Reported) Furosemide (Lasix) 20 Mg Tab, 20 MG PO DAILY Lactulose (Lactulose) 10 Gm/15 Ml Grace, 30 ML PO QID Goal of 3-4 BM/day. 1 month supply Magnesium Oxide (Magnesium Oxide 400) 400 Mg Tab, 400 MG PO DAILY, (Reported) Omeprazole (Omeprazole) 20 Mg Cap, 20 MG PO DAILY, (Reported) Potassium Chloride (Potassium Chloride ER) 20 Meq Tab, 40 MEQ PO DAILY, (Reported) Propranolol HCl (Propranolol HCl) 40 Mg Tab, 40 MG PO BID Spironolactone (Spironolactone) 50 Mg Tab, 50 MG PO DAILY Thiamine HCl (Thiamine HCl) 100 Mg Tab, 100 MG PO DAILY Scheduled PRN Hydroxyzine HCl (Hydroxyzine HCl) 25 Mg Tab, 25 MG PO BID PRN for ANXIETY, (Reported) Trazodone HCl (Trazodone HCl) 50 Mg Tab, 50 MG PO QHS PRN for SLEEP, (Reported) Allergies Coded Allergies: No Known Allergies (Unverified , 09/10/17) ASHANTI BURNS MD Sep 05, 2018 17:15
== END 2018-09-05 12:46 | disposition home or self-care (01) | DRG 442 ==
LOC: M ED 21:20 → M ED INP 09-03 01:24 → M MSPAV 09-03 12:29
PROVIDERS: ADMIT Internal Medicine; ATTEND Internal Medicine
DX: K72.90 Hepatic failure, unspecified without coma (principal); K56.7 Ileus, unspecified; I85.10 Secondary esophageal varices without bleeding; K70.30 Alcoholic cirrhosis of liver without ascites; F31.9 Bipolar disorder, unspecified; Z91.14 Patient's other noncompliance with medication regimen; Z79.899 Other long term (current) drug therapy; F39 Unspecified mood [affective] disorder; K52.9 Noninfective gastroenteritis and colitis, unspecified; D69.6 Thrombocytopenia, unspecified; F10.20 Alcohol dependence, uncomplicated

== ENCOUNTER 2018-12-07 10:09 | Emergency (ER) | payer MEDICARE, MEDICAID ==
[~2018-12-07] VITALS: Ht 188 cm; Wt 102.7 kg
[~2018-12-07 10:09] MED LIST changes: +HYDR-3715 PO; +LACT10SO7 PO; -LACT20EL PO; -NORCOTAB PO; +SERT-141 PO; -SERT50TA PO; -TRAZ-160 PO; +TRAZ-252 PO; +VITA500T17 PO; -VITA500T53 PO
[2018-12-07] MEDS ORDERED: NS 1,000 ML IV ONE ×2 (10:30→12:15)
--- NOTE | 2018-12-07 11:05 | REP ---
Clinical: Gastrointestinal bleed . Comparison: 08/24/2018 . Findings: The mediastinum and cardiac silhouette are stable and within normal limits for portable technique. The lung kidd are clear without acute consolidation, effusion, or pneumothorax. Skeletal structures are intact. Impression: No acute cardiopulmonary process appreciated. Electronically Signed by Gt Villar MD 12/07/2018 10:56 A
[2018-12-07 11:26] LABS: BASO % 0.2 % (0.0-1.0); EOS # 0.2 10^3/uL (0.0-0.50); EOS % 1.6 % (0.0-3.0); HEMATOCRIT 33.8 % (42.0-52.0); HEMOGLOBIN 11.9 g/dl (13.5-17.5); LYMPH # 1.1 10^3/uL (1.5-4.5); LYMPH % 12.2 % (24.0-44.0); MEAN CORPUSCULAR HEMOGLOBIN 33.7 pg (27.0-33.0); MEAN CORPUSCULAR HGB CONC 35.2 g/dl (32.0-36.5); MEAN CORPUSCULAR VOLUME 95.8 fl (80.0-96.0); MONO # 0.8 10^3/uL (0.0-0.8); MONO % 8.1 % (0.0-5.0); NEUTROPHILS # 7.2 10^3/uL (1.8-7.7); NEUTROPHILS % 77.5 % (36.0-66.0); RED BLOOD COUNT 3.53 10^6/uL (4.30-6.10); WHITE BLOOD COUNT 9.3 10^3/uL (4.0-10.0)
[2018-12-07 11:28] LABS: PLATELET COUNT, AUTOMATED 49 10^3/uL (150-450)
[2018-12-07 11:37] LABS: INR 1.8; PROTHROMBIN TIME 21.2 SECONDS (12.1-14.4)
[2018-12-07 11:38] LABS: PARTIAL THROMBOPLASTIN TIME 29.2 SECONDS (25.4-37.6)
[2018-12-07 11:55] LABS: ALBUMIN 2.7 GM/DL (3.2-5.2); ALT/SGPT 79 U/L (12-78); BILIRUBIN,DIRECT 0.9 MG/DL (0.0-0.2); BILIRUBIN,TOTAL 2.7 MG/DL (0.2-1.0); BLOOD UREA NITROGEN 20 MG/DL (7-18); CALCIUM LEVEL 8.1 MG/DL (8.5-10.1); CARBON DIOXIDE LEVEL 27 MEQ/L (21-32); CHLORIDE LEVEL 104 MEQ/L (98-107); CPK CREATINE PHOSPHOKINASE 253 U/L (39-308); CREATININE FOR GFR 0.74 MG/DL (0.70-1.30); GLOMERULAR FILTRATION RATE > 60.0 (>60); GLUCOSE, FASTING 144 MG/DL (70-100); LIPASE 119 U/L (73-393); MAGNESIUM LEVEL 1.6 MG/DL (1.8-2.4); MB/CK RELATIVE INDEX 0.79 (< OR =4); SODIUM LEVEL 138 MEQ/L (136-145); TOTAL PROTEIN 6.8 GM/DL (6.4-8.2); TROPONIN I < 0.02 NG/ML (< 0.10)
[2018-12-07] MEDS ORDERED: VITA250T50 PO (12:04)
[2018-12-07] MEDS ORDERED: MAG-400T7 PO ×2 (12:05→12:10)
[2018-12-07] MEDS ORDERED: PROP40TA62 PO (12:10)
[2018-12-07] MEDS ORDERED: FURO20TA2 PO (12:10)
[2018-12-07] MEDS ORDERED: SPIR50TA4 PO (12:10)
[2018-12-07] MEDS ORDERED: THIA100T7 PO (12:10)
[2018-12-07] MEDS ORDERED: LACT10SO29 PO (12:10)
[2018-12-07] MEDS ORDERED: fentaNYL 100 MCG/2 ML INJECTION (J3010) IV ONE (12:15)
[2018-12-07] MEDS ORDERED: ONDANSETRON 4MG/2ML VIAL (J2405) IV ONE (12:15)
[2018-12-07] MEDS ORDERED: MAG SULF 1GM/100ML (MAG RUN) 1 GM in APPROPRIATE DILUENT 1 EA IV ONE (12:45)
[2018-12-07] MEDS ORDERED: PANTOPRAZOLE 40MG INJ (PROTONIX) (C9113) IV ONE (14:00)
[2018-12-07] MEDS ORDERED: OCTREOTIDE ACETATE 1,200 MCG in NS 238.8 ML IV SCH (14:00)
[2018-12-07 14:17] LABS: BASO % 0.2 % (0.0-1.0); EOS # 0.1 10^3/uL (0.0-0.50); EOS % 1.3 % (0.0-3.0); HEMOGLOBIN 11.4 g/dl (13.5-17.5); LYMPH # 1.3 10^3/uL (1.5-4.5); LYMPH % 13.5 % (24.0-44.0); MEAN CORPUSCULAR HGB CONC 34.5 g/dl (32.0-36.5); MEAN CORPUSCULAR VOLUME 95.7 fl (80.0-96.0); MONO # 0.9 10^3/uL (0.0-0.8); MONO % 9.9 % (0.0-5.0); NEUTROPHILS # 7.1 10^3/uL (1.8-7.7); NEUTROPHILS % 74.7 % (36.0-66.0); RED BLOOD COUNT 3.45 10^6/uL (4.30-6.10); WHITE BLOOD COUNT 9.5 10^3/uL (4.0-10.0)
[2018-12-07 14:29] LABS: PLATELET COUNT, AUTOMATED 45 10^3/uL (150-450)
[2018-12-07] MEDS ORDERED: MORPHINE 2 MG/ML 1ML SYRINGE (J2270) IV ONE (15:00)
[2018-12-07 15:13] VITALS: BP 126/72
--- NOTE | 2018-12-07 19:32 | ECGEPIP ---
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
== END 2018-12-07 15:15 | disposition short-term general hospital (02) ==
LOC: EDBD 10:09 → M ED 10:09
DX: K92.2 Gastrointestinal hemorrhage, unspecified (principal); K70.30 Alcoholic cirrhosis of liver without ascites; B19.20 Unspecified viral hepatitis C without hepatic coma; F17.200 Nicotine dependence, unspecified, uncomplicated; Z79.899 Other long term (current) drug therapy
CPT/HCPCS: 36415; 71045; 80047; 80053; 82140; 82248; 82550; 82553; 83605; 83690; 83735; 84484; 85025; 85055; 85610; 85730; 86850; 86920; 87040; 93005; 93041; 96361; 96365; 96375; 99285; C9113; J2270; J2354; J2405; J3010; J3475

== ENCOUNTER → 2019-05-15 | Outpatient (REF) | payer OTHER ==
[~2019-05-15] MED LIST changes: +CYAN100049 PO; +MAG-400T7 PO; -OMEP20CA3 PO; +OMEP20CA4 PO; -VITA10002 PO; +VITA250T50 PO
[2019-05-15 13:29] LABS: ALBUMIN 2.8 GM/DL (3.2-5.2); ALT/SGPT 44 U/L (12-78); BILIRUBIN,TOTAL 1.6 MG/DL (0.2-1.0); BLOOD UREA NITROGEN 9 MG/DL (7-18); CALCIUM LEVEL 9.2 MG/DL (8.5-10.1); CARBON DIOXIDE LEVEL 28 MEQ/L (21-32); CHLORIDE LEVEL 103 MEQ/L (98-107); CREATININE FOR GFR 0.79 MG/DL (0.70-1.30); GLOMERULAR FILTRATION RATE > 60.0 (>60); GLUCOSE, FASTING 119 MG/DL (70-100); POTASSIUM SERUM 4.2 MEQ/L (3.5-5.1); SODIUM LEVEL 136 MEQ/L (136-145); TOTAL PROTEIN 7.4 GM/DL (6.4-8.2)
[2019-05-15 13:30] LABS: BASO % 0.4 % (0.0-1.0); EOS # 0.3 10^3/uL (0.0-0.5); EOS % 5.9 % (0.0-3.0); HEMATOCRIT 40.5 % (42.0-52.0); HEMOGLOBIN 13.4 g/dl (13.5-17.5); LYMPH # 1.1 10^3/uL (1.5-5.0); LYMPH % 21.9 % (24.0-44.0); MEAN CORPUSCULAR HEMOGLOBIN 30.5 pg (27.0-33.0); MEAN CORPUSCULAR HGB CONC 33.1 g/dl (32.0-36.5); MEAN CORPUSCULAR VOLUME 92.3 fl (80.0-96.0); MONO # 0.7 10^3/uL (0.0-0.8); MONO % 14.8 % (0.0-5.0); NEUTROPHILS # 2.8 10^3/uL (1.5-8.5); NEUTROPHILS % 56.6 % (36.0-66.0); RED BLOOD COUNT 4.39 10^6/uL (4.30-6.10); WHITE BLOOD COUNT 4.9 10^3/uL (4.0-10.0)
[2019-05-15 13:48] LABS: INR 1.83
[2019-05-15 14:07] LABS: PLATELET COUNT, AUTOMATED 47 10^3/uL (150-450)
[2019-05-15 14:16] LABS: MONO SCRN NEGATIVE (NEGATIVE)
== END ==
LOC: M SFHCPLAZ 11:33
PROVIDERS: ATTEND Family Medicine
DX: J06.9 Acute upper respiratory infection, unspecified (principal); K70.31 Alcoholic cirrhosis of liver with ascites

== ENCOUNTER → 2019-08-12 | Outpatient (REF) | payer MEDICARE, MEDICAID ==
[~2019-08-12] MED LIST changes: +OMEP1CAP73 PO; -OMEP20CA4 PO
[2019-08-12 18:10] LABS: ALBUMIN 2.7 GM/DL (3.2-5.2); ALT/SGPT 52 U/L (12-78); BILIRUBIN,TOTAL 1.3 MG/DL (0.2-1.0); BLOOD UREA NITROGEN 7 MG/DL (7-18); CALCIUM LEVEL 8.7 MG/DL (8.5-10.1); CARBON DIOXIDE LEVEL 31 MEQ/L (21-32); CHLORIDE LEVEL 106 MEQ/L (98-107); CREATININE FOR GFR 0.79 MG/DL (0.70-1.30); GLOMERULAR FILTRATION RATE > 60.0 (>60); GLUCOSE, FASTING 111 MG/DL (70-100); POTASSIUM SERUM 4.4 MEQ/L (3.5-5.1); SODIUM LEVEL 141 MEQ/L (136-145)
[2019-08-12 18:12] LABS: HEMATOCRIT 42.4 % (42.0-52.0); HEMOGLOBIN 13.7 g/dl (13.5-17.5); MEAN CORPUSCULAR HEMOGLOBIN 31.6 pg (27.0-33.0); MEAN CORPUSCULAR HGB CONC 32.3 g/dl (32.0-36.5); MEAN CORPUSCULAR VOLUME 97.9 fl (80.0-96.0); RED BLOOD COUNT 4.33 10^6/uL (4.30-6.10)
[2019-08-12 18:48] LABS: PLATELET COUNT, AUTOMATED 44 10^3/uL (150-450)
[2019-08-16 08:31] LABS: AFP TUMOR TOTAL 3.4 ng/mL (0.0-8.0); HEPATITIS C QUANTITATION 642560 IU/mL (.)
== END ==
LOC: M SFHCPLAZ 15:11
PROVIDERS: ATTEND Family Medicine
DX: K70.30 Alcoholic cirrhosis of liver without ascites (principal); B18.2 Chronic viral hepatitis C

== ENCOUNTER → 2019-09-16 | Outpatient (CLI) | payer OTHER ==
[2019-09-16 17:51] LABS: INR 1.59; PROTHROMBIN TIME 18.7 SECONDS (11.8-14.0)
== END ==
LOC: M PLALAB 15:24
PROVIDERS: ATTEND Internal Medicine Infectious Disease
DX: B18.2 Chronic viral hepatitis C (principal)

== ENCOUNTER 2019-12-06 09:24 | Inpatient (IN) | payer MEDICARE ==
[2019-12-06] VITALS (41 sets, daily range): BP systolic 119–204; BP diastolic 62–101
[2019-12-06] MEDS ORDERED: NS 1,000 ML IV ONE ×2 (09:45)
[2019-12-06] MEDS ORDERED: OCTREOTIDE ACETATE 1,200 MCG in NS 238.8 ML IV SCH (09:45)
[2019-12-06] MEDS ORDERED: PANTOPRAZOLE SODIUM 40 MG in D5W 50 ML IV SCH (09:45)
[2019-12-06] MEDS ORDERED: PANTOPRAZOLE 40MG VIAL (C9113 PER 1) IV ONE (09:45)
[2019-12-06 10:12] LABS: BASO # 0.1 10^3/uL (0.0-0.2); BASO % 0.4 % (0.0-1.0); EOS # 0.4 10^3/uL (0.0-0.5); EOS % 2.5 % (0.0-3.0); HEMATOCRIT 29.8 % (42.0-52.0); HEMOGLOBIN 9.9 g/dl (13.5-17.5); LYMPH # 2.4 10^3/uL (1.5-5.0); LYMPH % 13.8 % (24.0-44.0); MEAN CORPUSCULAR HEMOGLOBIN 31.3 pg (27.0-33.0); MEAN CORPUSCULAR HGB CONC 33.2 g/dl (32.0-36.5); MEAN CORPUSCULAR VOLUME 94.3 fl (80.0-96.0); MONO # 1.1 10^3/uL (0.0-0.8); MONO % 6.4 % (0.0-5.0); NEUTROPHILS # 13.4 10^3/uL (1.5-8.5); PLATELET COUNT, AUTOMATED 151 10^3/uL (150-450); RED BLOOD COUNT 3.16 10^6/uL (4.30-6.10); WHITE BLOOD COUNT 17.6 10^3/uL (4.0-10.0)
--- NOTE | 2019-12-06 10:21 | REP ---
Clinical: Shortness of breath . Comparison: 12/07/2018 . Findings: The mediastinum and cardiac silhouette are stable and within normal limits for portable technique. The lung kidd are clear without acute consolidation, effusion, or pneumothorax. Skeletal structures are intact. Impression: No acute cardiopulmonary process appreciated. Electronically Signed by Gt Villar MD 12/06/2019 10:12 A
[2019-12-06] MEDS ORDERED: MIDAZOLAM INJ 2MG/2ML VIAL (J2250 PER 1MG) IV STA (10:41)
[2019-12-06 10:42] LABS: ALBUMIN 2.3 GM/DL (3.2-5.2); ALT/SGPT 46 U/L (12-78); BILIRUBIN,DIRECT 0.4 MG/DL (0.0-0.2); BILIRUBIN,TOTAL 1.5 MG/DL (0.2-1.0); CK-MB VALUE MASS 2.7 NG/ML (<3.6); CPK CREATINE PHOSPHOKINASE 100 U/L (39-308); ETHYL ALCOHOL (ETHANOL) < 0.003 % (0.000-0.010); LIPASE 93 U/L (73-393); MAGNESIUM LEVEL 1.8 MG/DL (1.8-2.4); TOTAL PROTEIN 6.2 GM/DL (6.4-8.2); TROPONIN I < 0.02 NG/ML (< 0.10)
[2019-12-06] MEDS ORDERED: MIDAZOLAM INJ 2MG/2ML VIAL (J2250 PER 1MG) As Ordered ONE (10:42)
[2019-12-06] MEDS ORDERED: LACTULOSE 20 GM/30 ML SYRUP UD PR ONE (11:15)
[2019-12-06] MEDS ORDERED: ROPI0.253 PO (12:01)
[2019-12-06] MEDS ORDERED: POTA10TA17 PO (12:01)
[2019-12-06] MEDS ORDERED: FAMO1TAB11 PO (12:01)
[2019-12-06] MEDS ORDERED: LORazepam 2 MG/ML VIAL (J2060) IV STA ×2 (12:42→21:40)
--- NOTE | 2019-12-06 12:58 | ECGEPIP ---
[facility] - ED Test Date: 2019-12-06 Pat Name: ALEJO RUIZ Department: Room: - Gender: Male Aged Or Disabled Carer: alfredo : 1975 Requested By: Twila Asif Order Number: [id number] Reading MD: Twila Asif Measurements Intervals [place] Rate: 121 P: 65 HI: 148 QRS: 66 QRSD: 97 T: 57 QT: 308 QTc: 439 Interpretive Statements SINUS TACHYCARDIA ABNORMAL RHYTHM ECG INCREASED RATE 12/07/18 Electronically Signed on 12-06-2019 12:58:32 EDT by Twila Asif
--- NOTE | 2019-12-06 13:04 | HPEPDOC ---
[facility] Medical History & Physical Date of Admission December 06, 2019 Date of Service: December 06, 2019 History and Physical CHIEF COMPLAINT: Agitation HISTORY OF PRESENT ILLNESS: 44 yo male with PMHx of alcohol cirrhosis, esophagea l varices s/p banding, Hep C brought in by EMS for agitation. Apparently EMS was originally called very scientific programmer, patient refused care. EMS returned later, and patient was brought to the ED. Patient is uncooperative, agitated and a poor historian. There was some concern for hematemesis, with unconfirmed reports of an anonymous person who possibly witnessed vomiting blood. No evidence of bleeding was found on the patient, and no vomiting observed for 3 hours while in the ED. [facility]ust[facility] were contacted with regards to his banding, and there are no records of his receiving his banding at any of these facilities. PAST MEDICAL HISTORY: #Hep C #alcohol abuse/cirrhosis #esophageal varices s/p banding PAST SURGICAL HISTORY: #banding of esophageal varices ALLERGIES: Please see below. REVIEW OF SYSTEMS: Unable to obtain. HOME MEDICATIONS: Please see below. PHYSICAL EXAMINATION: VITAL SIGNS: See below General: agitated, uncooperative HEENT: dry mucous membranes, NC/AT Lungs: CTA B/L Heart: +S1S2, tachy Abd: soft, +BS, ND Ext: no edema, multiple tattoos MICROBIOLOGY: Please see below. ASSESSMENT: 44 yo male for encephalopathy likely due to substance abuse, co mplicated with hepatic encephalopathy. #encephalopathy - multifactorial - agitated on admission - ammonia elevated - lactulose - received Versed 0.5mg, ativan 2mg, haldol 2mg, benadryl 12.5mg - updated that patient now requiring 4 point restraint - physically aggressive towards staff #hypoxia - supplemental oxygen - thus far unable to obtain ABG secondary to agitation #poor peripheral access - obtain central venous access #Hep C #alcohol abuse/cirrhosis #esophageal varices s/p banding - H/H stable, but lower from previous - contacted [facility] [employer] - no records of receiving banding there - serial H/H - avoid heparin products #DVT prophylaxis - mechanical Vital Signs Vital Signs Date Time Temp Pulse Resp B/P (MAP) Pulse Ox O2 Delivery O2 Flow Rate FiO2 12/06/19 11:32 116/58 (77) 12/06/19 11:03 104 95 Nasal Cannula 2.0 5/23/20 10:48 18 12/06/19 09:36 97.0 Laboratory Data Labs 24H Laboratory Tests 2 12/06/19 09:32: Immature Granulocyte % (Auto) 0.9, Neutrophils (%) (Auto) 76.0H, Lymphocytes (%) (Auto) 13.8L, Monocytes (%) (Auto) 6.4H, Eosinophils (%) (Auto) 2.5, Basophils (%) (Auto) 0.4, Neutrophils # (Auto) 13.4H, Lymphocytes # (Auto) 2.4, Monocytes # (Auto) 1.1H, Eosinophils # (Auto) 0.4, Basophils # (Auto) 0.1, Nucleated Red Blood Cells % (auto) 0.0 12/06/19 09:33: Ammonia 106H 12/06/19 09:55: Magnesium Level 1.8, Total Bilirubin 1.5H, Direct Bilirubin 0.4H, Aspartate Amino Transf (AST/SGOT) 73H, Alanine Aminotransferase (ALT/SGPT) 46, Alkaline Phosphatase 81, Total Creatine Kinase 100, Creatine Kinase MB 2.7, Creatine Kinase MB Relative Index 2.70, Troponin I < 0.02, Total Protein 6.2L, Albumin 2.3L, Albumin/Globulin Ratio 0.6, Lipase 93, Ethyl Alcohol Level < 0.003 12/06/19 10:00: POC Glucose (Misc Panel) 176H, POC Sodium (Misc Panel) 139, POC Potassium (Misc Panel) 5.4H, POC Chloride (Misc Panel) 106, POC Total CO2 (Misc Panel) 22.0L, POC Blood Urea Nitrogen (Misc Panel 24, POC Ionized Calcium (Misc Panel) 4.3L, POC Creatinine (Misc Panel) 0.7, POC Hematocrit (Misc Panel) 31.0L CBC/BMP Laboratory Tests 12/06/19 09:32 Home Medications Scheduled Cyanocobalamin (Vitamin B-12) (Vitamin B-12) 250 Mcg Tablet, 250 MCG PO DAILY Famotidine (Famotidine) 20 Mg Tablet, 20 MG PO DAILY Folic Acid (Folic Acid) 1 Mg Tab, 1 MG PO DAILY Furosemide (Furosemide) 20 Mg Tablet, 20 MG PO DAILY Lactulose (Lactulose) 10 Gm/15 Ml Solution, 15 ML PO BID Magnesium Oxide (Magnesium Oxide) 400 Mg Tablet, 400 MG PO DAILY Omeprazole (Omeprazole) 20 Mg Cap, 20 MG PO DAILY Potassium Chloride (Potassium Chloride) 10 Meq Tab.er.prt, 10 MEQ PO DAILY Propranolol HCl (Propranolol HCl) 40 Mg Tablet, 40 MG PO BID Ropinirole HCl (Ropinirole HCl) 0.25 Mg Tablet, 0.25 MG PO QHS Spironolactone (Spironolactone) 50 Mg Tablet, 50 MG PO DAILY Thiamine HCl (Thiamine HCl) 100 Mg Tablet, 100 MG PO DAILY Scheduled PRN Hydroxyzine HCl (Hydroxyzine HCl) 25 Mg Tab, 25 MG PO BID PRN for ANXIETY Trazodone HCl (Trazodone HCl) 50 Mg Tab, 50 MG PO QHS PRN for SLEEP Allergies Coded Allergies: No Known Allergies (Unverified , 02/05/19) A-FIB/CHADSVASC A-FIB History Current/History of A-Fib/PAF?: No YENIFER CUNHA MD December 06, 2019 13:04
[2019-12-06] MEDS ORDERED: LORazepam 2 MG/ML VIAL (J2060) IM STA ×2 (13:06→16:40)
[2019-12-06] MEDS ORDERED: diphenhydrAMINE 50MG/ML VIAL (J1200) IM STA ×2 (13:24→16:40)
[2019-12-06] MEDS ORDERED: diphenhydrAMINE 50MG/ML VIAL (J1200) IM ONE (13:30)
[2019-12-06] MEDS ORDERED: HALOPERIDOL 5MG/ML VIAL (J1630 PER 1) IM PRN (13:30)
[2019-12-06] MEDS ORDERED: SUCCINYLCHOLINE INJ 200 MG/10 ML VIAL (J0330) As Ordered ONE (17:12)
[2019-12-06] MEDS ORDERED: MIDAZOLAM 5MG/ML 1ML VIAL (J2250 PER 1MG) As Ordered ONE (17:31)
[2019-12-06] MEDS ORDERED: PROPOFOL 1,000 MG/100 ML VIAL As Ordered ONE (17:41)
[2019-12-06] MEDS ORDERED: propofoL 1,000 MG in IV 1 EA IV ONE (18:15)
[2019-12-06] MEDS: NS 1,000 ML IV SCH ×2 (18:34→23:00)
[2019-12-06 18:36] LABS: ABG BASE EXCESS -2.3 (-2.0-2.0); ABG HCO3 19.9 MEQ/L (22.0-26.0); ABG O2 SATURATION 94.8 % (95.0-99.0); ABG PARTIAL PRESSURE CO2 25.6 mmHg (35.0-45.0); ABG STANDARD HCO3 22.5 MEQ/L (22.0-26.0); ABG TOTAL CO2 20.7 MEQ/L (22.0-29.0); ABG pH (ARTERIAL) 7.509 UNITS (7.350-7.450)
[2019-12-06 18:40] LABS: BASO % 0.2 % (0.0-1.0); EOS # 0.3 10^3/uL (0.0-0.5); EOS % 2.1 % (0.0-3.0); HEMATOCRIT 23.8 % (42.0-52.0); HEMOGLOBIN 8.1 g/dl (13.5-17.5); MEAN CORPUSCULAR HEMOGLOBIN 31.5 pg (27.0-33.0); MEAN CORPUSCULAR VOLUME 92.6 fl (80.0-96.0); MONO # 1.7 10^3/uL (0.0-0.8); MONO % 11.1 % (0.0-5.0); NEUTROPHILS # 11.3 10^3/uL (1.5-8.5); PLATELET COUNT, AUTOMATED 118 10^3/uL (150-450); RED BLOOD COUNT 2.57 10^6/uL (4.30-6.10); WHITE BLOOD COUNT 15.5 10^3/uL (4.0-10.0)
[2019-12-06] MEDS ORDERED: MIDAZOLAM INJ 2MG/2ML VIAL (J2250 PER 1MG) IV ONE (18:45)
[2019-12-06 18:53] LABS: INR 2.02; PROTHROMBIN TIME 22.6 SECONDS (11.8-14.0)
[2019-12-06 18:54] LABS: PARTIAL THROMBOPLASTIN TIME 32.3 SECONDS (25.0-38.4)
[2019-12-06 19:04] LABS: ALT/SGPT 37 U/L (12-78); BILIRUBIN,TOTAL 1.2 MG/DL (0.2-1.0); BLOOD UREA NITROGEN 24 MG/DL (7-18); CALCIUM LEVEL 7.4 MG/DL (8.5-10.1); CARBON DIOXIDE LEVEL 21 MEQ/L (21-32); CHLORIDE LEVEL 115 MEQ/L (98-107); GLOMERULAR FILTRATION RATE > 60.0 (>60); GLUCOSE, FASTING 133 MG/DL (70-100); POTASSIUM SERUM 4.2 MEQ/L (3.5-5.1); SODIUM LEVEL 143 MEQ/L (136-145); TOTAL PROTEIN 5.4 GM/DL (6.4-8.2)
[2019-12-06 19:10] LABS: MAGNESIUM LEVEL 1.8 MG/DL (1.8-2.4)
[2019-12-06 19:10] LABS: AMPHETAMINES LEVEL URINE POSITIVE (NEGATIVE); BARBITURATES URINE NEGATIVE (NEGATIVE); BENZODIAZEPINES URINE POSITIVE (NEGATIVE); CANNABINOIDS URINE POSITIVE (NEGATIVE); COCAINE METABOLITE URINE NEGATIVE (NEGATIVE); METHADONE URINE NEGATIVE (NEGATIVE); OPIATES URINE NEGATIVE (NEGATIVE); PHENCYCLIDINE URINE NEGATIVE (NEGATIVE)
[2019-12-06] MEDS ORDERED: LORazepam 2 MG TAB PO PRN (19:15)
[2019-12-06] MEDS ORDERED: LORazepam 2 MG/ML VIAL (J2060) As Ordered ONE ×2 (19:52→21:37)
[2019-12-06] MEDS: LORazepam 2 MG/ML VIAL (J2060) IV PRN (19:56)
[2019-12-07] VITALS (45 sets, daily range): BP systolic 115–198; BP diastolic 68–112
[2019-12-07] MEDS: NS 1,000 ML IV SCH (04:10)
[2019-12-07 04:46] LABS: HEMATOCRIT 23.9 % (42.0-52.0); HEMOGLOBIN 8.1 g/dl (13.5-17.5); MEAN CORPUSCULAR HEMOGLOBIN 31.8 pg (27.0-33.0); MEAN CORPUSCULAR HGB CONC 33.9 g/dl (32.0-36.5); MEAN CORPUSCULAR VOLUME 93.7 fl (80.0-96.0); PLATELET COUNT, AUTOMATED 128 10^3/uL (150-450); RED BLOOD COUNT 2.55 10^6/uL (4.30-6.10); WHITE BLOOD COUNT 16.5 10^3/uL (4.0-10.0)
[2019-12-07 05:04] LABS: BLOOD UREA NITROGEN 23 MG/DL (7-18); CARBON DIOXIDE LEVEL 23 MEQ/L (21-32); CHLORIDE LEVEL 118 MEQ/L (98-107); CREATININE FOR GFR 0.71 MG/DL (0.70-1.30); GLOMERULAR FILTRATION RATE > 60.0 (>60); GLUCOSE, FASTING 142 MG/DL (70-100); POTASSIUM SERUM 4.4 MEQ/L (3.5-5.1); SODIUM LEVEL 146 MEQ/L (136-145)
[2019-12-07 05:05] LABS: ALBUMIN 2.2 GM/DL (3.2-5.2); ALT/SGPT 41 U/L (12-78); BILIRUBIN,TOTAL 1.3 MG/DL (0.2-1.0); CALCIUM LEVEL 7.5 MG/DL (8.5-10.1); TOTAL PROTEIN 5.4 GM/DL (6.4-8.2)
[2019-12-07 05:59] LABS: ABG BASE EXCESS -0.8 (-2.0-2.0); ABG HCO3 22.2 MEQ/L (22.0-26.0); ABG O2 SATURATION 94.4 % (95.0-99.0); ABG PARTIAL PRESSURE CO2 30.1 mmHg (35.0-45.0); ABG PARTIAL PRESSURE O2 76.6 mmHg (75.0-100.0); ABG STANDARD HCO3 23.8 MEQ/L (22.0-26.0); ABG TOTAL CO2 23.1 MEQ/L (22.0-29.0); ABG pH (ARTERIAL) 7.485 UNITS (7.350-7.450)
[2019-12-07] MEDS ORDERED: LACTULOSE 20 GM/30 ML SYRUP UD PR ONE (08:00)
[2019-12-07] MEDS ORDERED: FOLIC ACID 1 MG TAB PO SCH (09:00)
[2019-12-07] MEDS ORDERED: THIAMINE 100 MG TAB PO SCH (09:00)
[2019-12-07] MEDS ORDERED: MULTIVITAMINS/MINERALS THERAP 1 TAB PO SCH (09:00)
--- NOTE | 2019-12-07 09:13 | RO ---
DATE OF PROCEDURE: 12/06/2019 PREPROCEDURE DIAGNOSIS: Need for IV access. IV drug abuse. No venous access available. POSTPROCEDURE DIAGNOSIS: Need for IV access. IV drug abuse. No venous access available. PROCEDURE: Insertion of left femoral central line. SURGEON: Dr. David Hawkins TURBINE ENGINE ASSEMBLER: DESCRIPTION OF PROCEDURE: The patient was totally combative and unresponsive. I was first consulted to place a central line, however, he kept rearing up and I could not safely gain access in central circulation through the subclavian vein or an internal jugular vein. There was no IV access and we could not satisfactorily sedate him other than IM injection. It took approximately six nurses to hold him down. Even with that, it was way too dangerous to place a subclavian line. I therefore turned to the right groin where I made multiple passes in a moving target to find his femoral vein. I did not find the femoral vein, but did find the femoral artery and therefore no bloods had been drawn. I proceeded to dilate to place a wire into the femoral artery, dilate it and place an indwelling catheter. This is dictated in a separate note. I tried multiple times to find the vein medial to the artery and I just could not. Therefore, I went to the left side and again sterilely prepped him and draped him as well as I could and found the femoral vein on the first pass. A wire was placed. The tract was dilated. A triple lumen catheter was placed without difficulty. The catheter was secured to the thigh with #2-0 silk sutures. I did not require a chest x-ray as I did not go below the clavicle in my subclavian attempt.
--- NOTE | 2019-12-07 09:13 | RO ---
DATE OF PROCEDURE: 12/06/2019 PREPROCEDURE DIAGNOSIS: Complete lack of IV access, multiple illicit IV drug sites of tracking, combativeness, unresponsiveness. POSTPROCEDURE DIAGNOSIS: Complete lack of IV access, multiple illicit IV drug sites of tracking, combativeness, unresponsiveness. PROCEDURE: Insertion of left femoral arterial line. SURGEON: Dr. David Hawkins FINANCIAL MANAGEMENT CONSULTANT: DESCRIPTION OF PROCEDURE: The arterial line was placed in attempting to place a right femoral central line. There were six nurses in attendance holding the patient down. Multiple passes were placed medial to the femoral artery. I could not obtain any access. I did access the femoral artery and decided to place a femoral arterial line. The artery was wired, the tract was dilated and a long arterial catheter was placed. This was secured to the skin with two #3-0 silk sutures. The arterial line was flushed and connected to the catheter with a good waveform.
[2019-12-07] MEDS: LORazepam 2 MG/ML VIAL (J2060) IV PRN (10:58)
[2019-12-07] MEDS ORDERED: PANTOPRAZOLE SODIUM 40 MG in D5W 50 ML IV SCH (11:00)
--- NOTE | 2019-12-07 11:06 | IPNPDOC ---
Text Note Date of Service The patient was seen on 12/07/19. NOTE Subjective: Patient is a 44-year-old male with a PMHx of Cirrhosis (possibly 2/2 EtOH), Hepatitis C (Follows with Dr. Cai), Hx of Esophageal Varices (s/p banding 06/[address] Jean) who presented to the hospital, brought in by EMS for agitation. At home, patient was reported to have episodes of hematemesis and epistaxis. On arrival to emergency room, patient was agitated and was subsequently given Ativan for control. Yesterday evening (12/05), patient had difficulty obtaining IV access and a central line was placed in his right femoral vein. Patient was admitted to the hospitalist service for further evaluation and treatment for his agitation. Patient was seen and examined at the bedside. Currently patient appears to be sedated but does respond to painful stimuli. Objective: Vitals (See below) General: Lying in bed, appears asleep, no acute distress HEENT: NC, AT CVS: Tachycardic, +S1S2 Lungs: Fair air entry b/l, no appreciable wheezing / rhonchi / rales Abdomen: Soft, no significant distention, no grimacing noted on abdominal palpation Extremities: No evidence of edema, - Calf tenderness Assessment and plan: Acute metabolic / toxic encephalopathy - possibly 2/2 hepatic encephalopathy, possibly 2/2 drug abuse - Presented to the emergency room and was agitated/combative - Currently, patient appears to be sedated - Physical is nonrevealing; no focal neurologic deficits noted. Pupils are reactive bilaterally - Ammonia elevated - Will give Lactulose enema; will discuss with GI about NG tube placement and Lactulose PO - s/p Versed 0.5mg, ativan 2mg, haldol 2mg, benadryl 12.5mg - Currently on Ativan 2mg IV [id number]; last dose received 12/05 at 9PM Cirrhosis, possible decompensated (re: Hepatic encephalopathy) - Will start Ceftriaxone; re: SBP prophylaxis - Will start Propranolol; has been on it in the past Dark stools, possibly 2/2 Upper GI bleeding - Hx of Variceal banding 06/[address] Jean - Will start Octreotide / Protonix / Carafate - Will trend H&H - Will transfuse if Hg trends down - Will consult gastroenterology; Dr. Jean Thrombocytopenia - possibly 2/2 cirrhosis - will continue to monitor counts Leukocytosis - Remains afebrile / hemodynamically stable - Procalcitonin pending - Will check UA - c/w Ceftriaxone (re: SBP prophylaxis) Hypernatremia - c/w IV fluid hydration s/p Lactic acidosis - c/w IV fluid hydration Acute hypoxia - CXR 12/06: No acute cardiopulmonary process appreciated. Alcohol abuse - Will start Folate / Thiamine / MVI - Will start CIWA protocol Poor peripheral access - s/p Central line placement at R femoral vein Hepatitis C - Follows with Dr. Cai as an outpatient GI prophylaxis - c/w Protonix DVT prophylaxis - c/w TEDs/Sequentials Disposition: - Will consult gastroenterology VS,Alverto, I+O VS, Alverto I+O Laboratory Tests 12/06/19 18:20 12/07/19 04:12 Vital Signs Date Time Temp Pulse Resp B/P (MAP) Pulse Ox O2 Delivery O2 Flow Rate FiO2 12/07/19 06:00 119 18 169/86 (121) 95 Nasal Cannula 6.0 151/99 12/07/19 04:00 98.0 I&O- Last 24 Hours up to 6 AM 12/07/19 06:00 Intake Total 2620 ml Output Total 675 ml Balance 1945 ml TOMAS MADISON MD December 07, 2019 11:06
[2019-12-07] MEDS ORDERED: PROPRANOLOL 10 MG TAB PO SCH (12:00)
[2019-12-07] MEDS ORDERED: SUCRALFATE SUSP 1GM/10ML UD PO SCH (12:00)
[2019-12-07] MEDS ORDERED: cefTRIAXone SOD 2 GM in D5W MINI-BAG PLUS 50 ML IV SCH (12:00)
[2019-12-07] MEDS ORDERED: ETOMIDATE INJ 20MG/10ML VIAL As Ordered ONE (12:26)
[2019-12-07] MEDS ORDERED: MIDAZOLAM INJ 2MG/2ML VIAL (J2250 PER 1MG) As Ordered ONE (12:27)
[2019-12-07] MEDS ORDERED: MIDAZOLAM INJ 2MG/2ML VIAL (J2250 PER 1MG) IV STA (12:40)
[2019-12-07] MEDS ORDERED: ETOMIDATE INJ 20MG/10ML VIAL IV STA (12:41)
[2019-12-07] MEDS ORDERED: propofoL 200 MG/20 ML VIAL IV ONE (12:42)
[2019-12-07] MEDS ORDERED: OCTREOTIDE ACETATE 1,200 MCG in NS 238.8 ML IV SCH (13:00)
[2019-12-07] MEDS ORDERED: propofoL 1,000 MG in IV 1 EA IV SCH (13:00)
--- NOTE | 2019-12-07 13:24 | REP ---
Clinical: Tube placement. Comparison: 12/06/2019. Findings: Endotracheal tube 3.5 cm above the kayleigh. Nasogastric tube courses below left hemidiaphragm in satisfactory position. Mediastinum and cardiac silhouette are normal. Very subtle right basilar air space disease cannot be excluded. However, no focal consolidation, effusion, or pneumothorax. Skeletal structures are intact. Impression: 1. Endotracheal tube and nasogastric tube in satisfactory position. 2. No focal consolidation or effusion. Electronically Signed by Gt Villar MD 12/07/2019 01:16 P
--- NOTE | 2019-12-07 14:09 | DS.PDOC ---
Discharge Summary General Date of Admission December 06, 2019 at 12:29 Date of Discharge 12/07/2019 Discharge Summary PROCEDURES PERFORMED DURING STAY: R femoral central line 12/05 Intubation 12/06 R IJ TLC 12/06 ADMITTING DIAGNOSES / DISCHARGE DIAGNOSES: Acute metabolic / toxic encephalopathy - possibly 2/2 hepatic encephalopathy, possibly 2/2 drug abuse Ventilator dependent respiratory failure; re: airway protection Cirrhosis, possible decompensated (re: Hepatic encephalopathy) Dark stools, possibly 2/2 Acute GI bleed / Acute blood loss anemia - 2/2 Upper GI bleeding Thrombocytopenia - possibly 2/2 cirrhosis Leukocytosis Hypernatremia s/p Lactic acidosis Acute hypoxia Alcohol abuse Poor peripheral access Hepatitis C GI prophylaxis DVT prophylaxis COMPLICATIONS/CHIEF COMPLAINT: Confusion / Agitation Reported Hemoptysis HISTORY OF PRESENT ILLNESS: Patient is a 44-year-old male with a PMHx of Cirrhosis (possibly 2/2 EtOH), Hepatitis C (Follows with Dr. Cai), Hx of Esophageal Varices (s/p banding 06/[address] Jean) who presented to the hospital, brought in by EMS for agitation. At home, patient was reported to have episodes of hematemesis and epistaxis. On arrival to emergency room, patient was agitated and was subsequently given Ativan for control. Yesterday evening (12/05), patient had difficulty obtaining IV access and a central line was placed in his right femoral vein. Patient was admitted to the hospitalist service for further evaluation and treatment for his agitation. This morning at around 9 AM patient began to experience several large dark colored stools. Patient was minimally arousable to stimuli. Was requiring 8 L of oxygen to maintain saturations. Patient was ultimately intubated for airway protection. OG tube was inserted which had revealed bright red blood. Case was discussed with [facility] and accepted to MICU under the care of Dr. Cohen with Gastroenterology on consultation for likely banding. HOSPITAL COURSE: Acute metabolic / toxic encephalopathy - possibly 2/2 hepatic encephalopathy, possibly 2/2 drug abuse - Presented to the emergency room and was agitated/combative - Physical is nonrevealing; no focal neurologic deficits noted. Pupils are reactive bilaterally - Ammonia elevated - Will give Lactulose enema; - OG tube has been placed; c/w Lactulose via OG tube q6h - s/p Versed 0.5mg, ativan 2mg, haldol 2mg, benadryl 12.5mg - Currently on Ativan 2mg IV [id number]; last dose received 12/05 at 9PM - Patient is now intubated on propofol Cirrhosis, possible decompensated (re: Hepatic encephalopathy) - Will start Ceftriaxone; re: SBP prophylaxis - Will start Propranolol; has been on it in the past Dark stools, possibly 2/2 Upper GI bleeding - Hx of Variceal banding 06/[address] Jean - This morning 12/06, patient has had 2 large dark colored with red tinge bowel movements - Will start Octreotide / Protonix / Carafate - Repeat CBC pending - Discussed with GI; Dr. Jean; currently is not nurse's companion and cannot provide endoscopy for banding; recommended transfer - Discussed case with and [facility] in [place]; has been accepted on transfer Thrombocytopenia - possibly 2/2 cirrhosis - will continue to monitor counts Leukocytosis - Remains afebrile / hemodynamically stable - Procalcitonin pending - Will check UA - c/w Ceftriaxone (re: SBP prophylaxis) Hypernatremia - c/w IV fluid hydration s/p Lactic acidosis - c/w IV fluid hydration Acute hypoxia - CXR 12/06: No acute cardiopulmonary process appreciated. Alcohol abuse - c/w Folate / Thiamine / MVI - Will start CIWA protocol Poor peripheral access - s/p Central line placement at R femoral vein on 12/05; can be discontinued - New R IJ TLC has been placed using sterile procedures on 12/06 Hepatitis C - Follows with Dr. Cai as an outpatient GI prophylaxis - c/w Protonix DVT prophylaxis - c/w TEDs/Sequentials DISCHARGE MEDICATIONS: Please see below. ALLERGIES: Please see below. PHYSICAL EXAMINATION ON DISCHARGE: Vitals (See below) General: Lying in bed, appears asleep, no acute distress HEENT: NC, AT CVS: Tachycardic, +S1S2 Lungs: Fair air entry b/l, no appreciable wheezing / rhonchi / rales Abdomen: Soft, no significant distention, no grimacing noted on abdominal palpation Extremities: No evidence of edema, - Calf tenderness LABORATORY DATA: Please see below. ACTIVITY: [As tolerated]. DISCHARGE PLAN / DISPOSITION: Transferred to [facility] DISCHARGE CONDITION: [Stable]. TIME SPENT ON DISCHARGE: 35 minutes Vital Signs/I&Os Vital Signs Date Time Temp Pulse Resp B/P (MAP) Pulse Ox O2 Delivery O2 Flow Rate FiO2 12/07/19 13:24 122 14 115/75 97 Ventilator 50 12/07/19 06:00 6.0 12/07/19 04:00 98.0 I&O- Last 24 Hours up to 6 AM 12/07/19 06:00 Intake Total 2620 ml Output Total 675 ml Balance 1945 ml Laboratory Data Labs 24H Laboratory Tests 2 12/06/19 18:20: Immature Granulocyte % (Auto) 0.6, Neutrophils (%) (Auto) 73.0H, Lymphocytes (%) (Auto) 13.0L, Monocytes (%) (Auto) 11.1H, Eosinophils (%) (Auto) 2.1, Basophils (%) (Auto) 0.2, Neutrophils # (Auto) 11.3H, Lymphocytes # (Auto) 2.0, Monocytes # (Auto) 1.7H, Eosinophils # (Auto) 0.3, Basophils # (Auto) 0.0, Nucleated Red Blood Cells % (auto) 0.0, Prothrombin Time 22.6H, Prothromb Time International Ratio 2.02, Activated Partial Thromboplast Time 32.3, Anion Gap 7L, Glomerular Filtration Rate > 60.0, Calcium Level 7.4L, Magnesium Level 1.8, Total Bilirubin 1.2H, Aspartate Amino Transf (AST/SGOT) 62H, Alanine Aminotransferase (ALT/SGPT) 37, Alkaline Phosphatase 62, Total Creatine Kinase 289#, Total Protein 5.4L, Albumin 2.0L, Albumin/Globulin Ratio 0.6 12/06/19 18:21: Lactic Acid Level 4.1*H, Urine Opiates Screen NEGATIVE, Urine Methadone Screen NEGATIVE, Urine Barbiturates Screen NEGATIVE, Urine Phencyclidine Screen NEGATIVE, Urine Amphetamines Screen POSITIVEH, Urine Benzodiazepines Screen POSITIVEH, Urine Cocaine Metabolite Screen NEGATIVE, Urine Cannabinoids Screen POSITIVEH 12/06/19 18:31: Blood Gas Bicarbonate Standard 22.5, Arterial Blood pH 7.509H, Arterial Blood Partial Pressure CO2 25.6L, Arterial Blood Partial Pressure O2 76.0, Arterial Blood Total CO2 20.7L, Arterial Blood HCO3 19.9L, Arterial Blood Base Excess - 2.3L, Arterial Blood Oxygen Saturation 94.8L 12/06/19 22:50: Lactic Acid Followup at 4 Hours 1.8 12/07/19 04:12: Nucleated Red Blood Cells % (auto) 0.0, Anion Gap 5L, Glomerular Filtration Rate > 60.0, Calcium Level 7.5L, Total Bilirubin 1.3H, Aspartate Amino Transf (AST/SGOT) 66H, Alanine Aminotransferase (ALT/SGPT) 41, Alkaline Phosphatase 58, Total Protein 5.4L, Albumin 2.2L, Albumin/Globulin Ratio 0.7 12/07/19 05:41: Blood Gas Bicarbonate Standard 23.8, Arterial Blood pH 7.485H, Arterial Blood Partial Pressure CO2 30.1L, Arterial Blood Partial Pressure O2 76.6, Arterial Blood Total CO2 23.1, Arterial Blood HCO3 22.2, Arterial Blood Base Excess -0.8, Arterial Blood Oxygen Saturation 94.4L 12/07/19 06:00: Ammonia 218H 12/07/19 09:16: Urine Color YELLOW, Urine Appearance CLEAR, Urine pH 5.0, Urine Specific [place] 1.028, Urine Protein 1+H, Urine Glucose (UA) NEGATIVE, Urine Ketones NEGATIVE, Urine Blood 3+H, Urine Nitrite NEGATIVE, Urine Bilirubin NEGATIVE, Urine Urobilinogen 2.0H, Urine Leukocyte Esterase NEGATIVE, Urine WBC (Auto) 1, Urine RBC (Auto) TNTCH, Urine Hyaline Casts (Auto) 0, Urine Bacteria (Auto) NEGATIVE, Urine Squamous Epithelial Cells 0, Urine Sperm (Auto) CBC/BMP Laboratory Tests 12/06/19 18:20 12/07/19 04:12 Microbiology Microbiology 12/07/19 Stool Occult Blood (SAULO), Received Pending 12/06/19 Blood Culture, Received Pending Discharge Medications Scheduled Cyanocobalamin (Vitamin B-12) (Vitamin B-12) 250 Mcg Tablet, 250 MCG PO DAILY, (Reported) Famotidine (Famotidine) 20 Mg Tablet, 20 MG PO DAILY, (Reported) Folic Acid (Folic Acid) 1 Mg Tab, 1 MG PO DAILY, (Reported) Furosemide (Furosemide) 20 Mg Tablet, 20 MG PO DAILY, (Reported) Lactulose (Lactulose) 10 Gm/15 Ml Solution, 15 ML PO BID, (Reported) Magnesium Oxide (Magnesium Oxide) 400 Mg Tablet, 400 MG PO DAILY, (Reported) Omeprazole (Omeprazole) 20 Mg Cap, 20 MG PO DAILY, (Reported) Potassium Chloride (Potassium Chloride) 10 Meq Tab.er.prt, 10 MEQ PO DAILY, (Reported) Propranolol HCl (Propranolol HCl) 40 Mg Tablet, 40 MG PO BID, (Reported) Ropinirole HCl (Ropinirole HCl) 0.25 Mg Tablet, 0.25 MG PO QHS, (Reported) Spironolactone (Spironolactone) 50 Mg Tablet, 50 MG PO DAILY, (Reported) Thiamine HCl (Thiamine HCl) 100 Mg Tablet, 100 MG PO DAILY, (Reported) Scheduled PRN Hydroxyzine HCl (Hydroxyzine HCl) 25 Mg Tab, 25 MG PO BID PRN for ANXIETY, (Reported) Trazodone HCl (Trazodone HCl) 50 Mg Tab, 50 MG PO QHS PRN for SLEEP, (Reported) Allergies Coded Allergies: No Known Allergies (Unverified , 02/05/19) TOMAS MADISON MD December 07, 2019 14:09
[2019-12-07 14:13] LABS: BASO # 0.1 10^3/uL (0.0-0.2); BASO % 0.2 % (0.0-1.0); EOS # 0.2 10^3/uL (0.0-0.5); EOS % 1.1 % (0.0-3.0); HEMATOCRIT 23.6 % (42.0-52.0); HEMOGLOBIN 7.8 g/dl (13.5-17.5); LYMPH # 1.9 10^3/uL (1.5-5.0); LYMPH % 8.6 % (24.0-44.0); MEAN CORPUSCULAR HEMOGLOBIN 32.4 pg (27.0-33.0); MEAN CORPUSCULAR HGB CONC 33.1 g/dl (32.0-36.5); MEAN CORPUSCULAR VOLUME 97.9 fl (80.0-96.0); MONO # 2.4 10^3/uL (0.0-0.8); MONO % 11.2 % (0.0-5.0); NEUTROPHILS # 16.9 10^3/uL (1.5-8.5); NEUTROPHILS % 78.1 % (36.0-66.0); PLATELET COUNT, AUTOMATED 148 10^3/uL (150-450); RED BLOOD COUNT 2.41 10^6/uL (4.30-6.10); WHITE BLOOD COUNT 21.7 10^3/uL (4.0-10.0)
[2019-12-07 14:47] LABS: ABG BASE EXCESS -5.5 (-2.0-2.0); ABG HCO3 17.9 MEQ/L (22.0-26.0); ABG O2 SATURATION 89.1 % (95.0-99.0); ABG PARTIAL PRESSURE CO2 27.5 mmHg (35.0-45.0); ABG PARTIAL PRESSURE O2 62.6 mmHg (75.0-100.0); ABG STANDARD HCO3 19.8 MEQ/L (22.0-26.0); ABG TOTAL CO2 18.7 MEQ/L (22.0-29.0); ABG pH (ARTERIAL) 7.431 UNITS (7.350-7.450)
[2019-12-07 14:48] LABS: ALT/SGPT 40 U/L (12-78); BLOOD UREA NITROGEN 25 MG/DL (7-18); CALCIUM LEVEL 7.3 MG/DL (8.5-10.1); CARBON DIOXIDE LEVEL 21 MEQ/L (21-32); CHLORIDE LEVEL 121 MEQ/L (98-107); CK-MB VALUE MASS 6.1 NG/ML (<3.6); CPK CREATINE PHOSPHOKINASE 207 U/L (39-308); CREATININE FOR GFR 1.05 MG/DL (0.70-1.30); GLOMERULAR FILTRATION RATE > 60.0 (>60); GLUCOSE, FASTING 117 MG/DL (70-100); MAGNESIUM LEVEL 2.1 MG/DL (1.8-2.4); MB/CK RELATIVE INDEX 2.95 (< OR =4); PHOSPHORUS LEVEL 4.6 MG/DL (2.5-4.9); POTASSIUM SERUM 4.3 MEQ/L (3.5-5.1); SODIUM LEVEL 151 MEQ/L (136-145); TOTAL PROTEIN 5.5 GM/DL (6.4-8.2); TROPONIN I 0.02 NG/ML (< 0.10)
[2019-12-07] MEDS ORDERED: NS 0.45% 1,000 ML IV SCH (15:00)
[2019-12-07] MEDS ORDERED: D5W 1,000 ML IV SCH (15:30)
[2019-12-07] MEDS ORDERED: THIAMINE 200MG/2ML VIAL (J3411 PER 100MG) IV ONE (15:30)
--- NOTE | 2019-12-07 15:36 | REP ---
Clinical: Status post line placement . Comparison: 12/07/2019 at 12:54 p.m. Findings: Right IJ line with tip in the SVC. Nasogastric tube courses below left hemidiaphragm. Endotracheal tube 4 cm above the kayleigh. The mediastinum and cardiac silhouette are stable and within normal limits for portable technique. Trace left basilar atelectasis cannot be excluded. Skeletal structures are intact. Impression: 1. Lines and tubes in satisfactory position. 2. Questionable trace left basilar atelectasis. Electronically Signed by Gt Villar MD 12/07/2019 03:27 P
[2019-12-07] MEDS ORDERED: MEROPENEM INJ 1 GM in IV 1 EA IV ONE (16:00)
--- NOTE | 2019-12-07 19:15 | CR ---
DATE OF CONSULTATION: 12/07/2019 CHIEF COMPLAINT: Altered mental status. HISTORY OF PRESENT ILLNESS: History is obtained from the chart and other collateral information, as the patient is altered and unable to provide a history. The patient is a 44-year-old male with a history of alcoholic cirrhosis with esophageal varices and banding, hepatitis C, polysubstance abuse, who had presented with agitation and altered mental status. The patient also had report of an anonymous person witnessing patient vomiting blood. Initially in the emergency department (ED) he did not have any episodes of hematemesis or melena. He was admitted to the intensive care unit (ICU) for agitation and did require multiple doses of intravenous (IV) Ativan, Versed, Haldol, and Benadryl as well as at points requiring physical restraint. Yesterday evening, the patient had pulled out his peripheral IVs, and given his history of IV drug use, it was difficult obtaining IV access. He had a central line placed emergently in the femoral vein as well as an arterial line by cardiothoracic surgery, and he was able to be administered medications for agitation as well as for possible upper gastrointestinal (GI) bleed given a history of varices. Up to then, the patient had not been on any medications. The patient was started on Protonix drip and octreotide drip given history of varices. He was also given ceftriaxone for spontaneous bacterial peritonitis (SBP) prophylaxis given his history of cirrhosis and a possible variceal disease with the altered mental status. The patient was planned to get lactulose; however, given his agitation he was thought to need nasogastric (NG) tube for placement. Earlier today, there was an attempt made for NG tube placement; however, the patient was combative and desaturated with the attempt for NG tube placement. He has also required nasal cannula oxygen supplementation since his admission and has had periods of odd agonal breathing. Today he appeared more somnolent as well as having desaturation and more agonal breathing. He also was found to have a large volume of melena, approximately a liter. The patient's blood pressure had remained stable, although he was tachycardiac. The decision was made, given his altered mental status and with the acute GI bleed, to intubate and place him on mechanical ventilation. The patient also required placement of a right internal jugular (IJ) triple lumen catheter for venous access, as the femoral line was to be in place for no more than 24 hours. PAST MEDICAL AND SURGICAL HISTORY: 1. Hepatitis C. 2. Alcohol abuse. 3. Cirrhosis. 4. Esophageal varices status post banding. 5. Previous drug abuse. 6. Anxiety. 7. Insomnia. FAMILY HISTORY: Mother with history of hypertension. SOCIAL HISTORY: The patient was a current smoker of five cigarettes or less a day. The patient also has a history of substance abuse with marijuana as well as cocaine and amphetamines. Apparently, when emergency medical services (EMS) was called, the patient was found to have a methamphetamine labs at his place of residence. HOME MEDICATIONS: Trazodone, spirolactone, Lasix, famotidine, potassium chloride, propranolol, lactulose, hydroxyzine p.r.n., ribavirin. ALLERGIES: No known drug allergies. REVIEW OF SYSTEMS: Unable to be obtained, as the patient is altered mental and unable to write history. PHYSICAL EXAMINATION: Temperature 97.8, pulse 128, respirations 30, blood pressure 175/98, oxygen 93% on 8 liters nasal cannula and later placed on non-rebreather at 94%. GENERAL: The patient is obtunded. He is responsive to painful stimuli but is not responsive or following commands appropriately. The patient has episodes of deep, almost agonal, breathing at times. HEENT: He is normocephalic, atraumatic. Pupils are small and sluggishly reactive to light bilaterally. There are moist mucous membranes. The patient has poor oral hygiene. Neck is supple. Trachea is midline week. There is no palpable cervical adenopathy. CARDIAC: Tachycardiac, regular rate and rhythm. Unable to appreciate any murmurs. PULMONARY: There are coarse breath sounds bilaterally. No wheezing, rales, or rhonchi. ABDOMEN: Soft. Appears mildly distended but nontender. There is palpable hepatomegaly. EXTREMITIES: There is no significant lower extremity edema noted bilaterally. The patient has extensive tattoos noted. LABORATORY DATA: WBC 16.5, hemoglobin 8.1, platelets 128. Chemistry: Sodium 146, potassium 4.4, chloride 118, bicarbonate 23, BUN 23, creatinine 0.71, glucose 142. Lactic acid was 4.1 yesterday evening; repeat was 1.8. Calcium 7.5. Total bilirubin 1.3, AST 66, ALT 41, alkaline phosphatase 58, albumin 2.2. INR yesterday to 2.02. ABG this morning with pH 7.485, pCO2 of 3.1, pO2 of 76.6. Urine toxicology yesterday was positive for amphetamines, benzodiazepines, cannabis. Alcohol level was negative. Stool occult blood was positive. IMAGING: Chest x-ray on admission showed no focal opacities or infiltrates. Repeat chest x-ray after intubation shows endotracheal (ET) tube in satisfactory position with an orogastric (OG) tube coursing below the left hemidiaphragm. There is a right IJ triple lumen with tip in the superior vena cava (SVC). There was questionable trace left basalar atelectasis. ASSESSMENT AND PLAN: Mr. Lara is a 44-year-old male with a history of cirrhosis, hepatitis C, history of esophageal varices, and polysubstance abuse, who presented to the hospital with altered mental status and agitation. The patient also had reported episode of possible hematemesis at home. He had difficulty with IV access during his admission, as he was agitated and pulling out his peripheral lines. Yesterday, he finally was able to have a central line placed by cardiothoracic surgery with difficulty given his agitation. He was started, however, yesterday evening on medication for his acute GI bleed with octreotide and Protonix drip as well as ceftriaxone for SBP prophylaxis. Later in the morning, the patient was noted to have worsening hypoxic respiratory failure requiring increasing oxygen requirements. He also was found to be more obtunded and having periods of almost agonal breathing. The patient then had a large melanotic bowel movement, and the decision was made for intubation for airway protection as well for his altered mental status and hypoxic respiratory failure. Acute metabolic encephalopathy, possible hepatic encephalopathy as well as possibly secondary to intoxication from drug abuse. - The patient does have elevated lactulose and history of cirrhosis. He also has a possible acute upper GI bleed, which may also be contributing to his altered mental status. - The patient was planned for lactulose via NG tube, which was difficult to place. He does have an OG tube in place now, and so lactulose can be started. - The patient is now intubated, however, and on propofol for sedation. Will continue with Versed as well as needed for agitation. Acute hypoxemic respiratory failure, possibly in the setting of aspiration as well as with his altered mental status and possible undiagnosed sleep disordered breathing. Given his history of cirrhosis with portal hypertension, there may also be a component of hepatopulmonary syndrome and shunting as well as contributing to his hypoxia. - The patient was intubated and placed on mechanical ventilation with pressure-regulated volume control (PRVC) at settings of 500/15/60 and 5. Will continue to titrate his FiO2 and positive end-expiratory pressure (PEEP) to maintain oxygen saturation above 90%. - Continue daily arterial blood gases (ABGs) and chest x-rays while intubated. - The patient has questionable aspiration given history of GI bleed. His initial chest x-ray did not show any focal opacities, and the repeat today showed questionable left basilar atelectasis. He is on ceftriaxone for SBP prophylaxis already. Acute GI bleed in setting of cirrhosis and history of varices. - Will continue octreotide drip and Protonix drip. - Continue to trend hemoglobin and hypertension and transfuse as needed. - GI was consulted, Dr. Jean, and there is no available today for esophagogastroduodenoscopy (EGD). [facility] was consulted, and the patient was determined to require urgent EGD, and so the plan is for transfer to [facility] for further managing of his acute GI bleed. - Continue with ceftriaxone for SBP prophylaxis. - Continue with propranolol and hold for hypotension. - The patient has lactic acidosis, likely in the setting of his cirrhosis as well as with his GI bleed. He appears hemodynamically stable currently and has been getting IV fluid repletion. Will continue to trend lactic acid. - The patient was getting normal saline, however, is hypernatremic and hyperkalemic. Will discontinue normal saline and place him on D5W and can give boluses as needed. For hypotension and with his history of cirrhosis, can consider albumin administration as well. - Continue with thiamine, folate, and multivitamins given a history of alcohol abuse. GI prophylaxis. Protonix. DVT prophylaxis. Thromboembolic deterrents (TEDs) and sequential compression devices (SCDs). Code status: Full code. TOTAL CRITICAL CARE TIME SPENT, NOT INCLUDING PROCEDURES: Approximately 2 hours. The patient is planned to be transferred to [facility]. He has a bed in their medical intensive care unit (ICU). Please do not hesitate to call for any further questions or concerns. [facility]
[2019-12-07] MEDS ORDERED: CHLORHEXIDINE GLUCONATE 0.12 % 15ML UDC (PERIDEX ORAL RINSE) MT SCH (21:00)
--- NOTE | 2019-12-08 07:03 | RO ---
DATE OF PROCEDURE: 12/07/2019 PREPROCEDURE DIAGNOSIS: Hypoxemic respiratory failure and acute gastrointestinal (GI) bleed. POSTPROCEDURE DIAGNOSIS: Hypoxemic respiratory failure and acute gastrointestinal bleed. PROCEDURE: Endotracheal intubation ATTENDING PHYSICIAN: Dr. Jimenez INDICATION: Airway protection and hypoxemic respiratory failure. CONSENT: Due to the emergent nature of the procedure, consent was implied. The patient was a FULL CODE. PROCEDURE SUMMARY: Time-out was performed. The patient was placed on a personnel monitor including continuous pulse oximetry. Rapid sequence intubation was conducted. The patient was given pre-sedation with Versed 2 mg IV push. He was then given etomidate 20 mg for induction as well as additional 50 mg of propofol. Cricoid pressure was maintained. Using a size 3 MAC laryngoscope and size 8 endotracheal tube with stylette, the patient was intubated on the first pass attempt. The stylette was removed and the cuff balloon was inflated. Appropriate endotracheal tube position was confirmed by direct visualization of vocal cord passage fogging of the tube and CO2 colorimetric indicator and symmetric breath sounds. The tube was secured at 24 cm at the teeth. Post intubation chest x-ray showed endotracheal tube (ET) tube in good position. [facility]
--- NOTE | 2019-12-08 07:13 | RO ---
DATE OF PROCEDURE: 12/07/19 PREPROCEDURE DIAGNOSIS: Acute gastrointestinal (GI) bleed. POSTPROCEDURE DIAGNOSIS: Acute gastrointestinal bleed. PROCEDURE: Central line insertion ATTENDING PHYSICIAN: Dr. Jimenez INDICATION: Venous access. CONSENT: The procedure was performed emergently and due to the emergent nature of the procedure the consent was applied implied. PROCEDURE SUMMARY: A central line insertion practice form was completed by independent observer. A full sterile technique was maintained throughout the procedure including surgical cap, mask, protective eyewear, full gown, and sterile gloves. A time-out was performed prior to procedure. The patient was placed in Trendelenburg position and the right neck region was prepped using chlorhexidine scrub and draped in sterile fashion using a fenestrated drape and a sterile probe cover employed. The right internal jugular vein was identified using ultrasound. Anesthesia was achieved over the right internal jugular vein using 1% lidocaine. Using real time-out out of plane guidance, the introducer needle was inserted into the right internal jugular vein under direct ultrasound visualization. Venous blood was drawn. The syringe was removed and the guidewire was advanced into the introducer needle. The introducer needle was removed over the guidewire. A small incision was made at the skin surface with the scalpel and the dilator was exchanged over the guidewire. After appropriate dilation was obtained, the dilator was exchanged over wire for a triple-lumen central venous catheter. The wire was removed and the catheter was sutured in place at 18 cm. Sterile chlorhexidine impregnated dressing was placed over the catheter at the insertion site. The patient tolerated the procedure without any hemodynamic compromise. At the time of procedure completion, all ports aspirated and flushed properly. Postprocedure chest x-ray is pending. Estimated blood loss was less 2 mL. MTDD
== END 2019-12-07 15:43 | disposition short-term general hospital (02) | DRG 441 ==
LOC: M ED 09:24 → EDBD 09:24 → M ED INP 12:29 → M ICU 15:12
PROVIDERS: ADMIT Internal Medicine; ATTEND Internal Medicine
PROC: 05HY32Z Insertion of Monitoring Device into Upper Vein, Percutaneous Approach (ICD-10-PCS; 2019-12-06)
PROC: 06HN33Z Insertion of Infusion Device into Left Femoral Vein, Percutaneous Approach (ICD-10-PCS; 2019-12-06)
PROC: 02HV33Z Insertion of Infusion Device into Superior Vena Cava, Percutaneous Approach (ICD-10-PCS; principal; 2019-12-07)
PROC: 0BH17EZ Insertion of Endotracheal Airway into Trachea, Via Natural or Artificial Opening (ICD-10-PCS; 2019-12-07)
PROC: 5A1935Z Respiratory Ventilation, Less than 24 Consecutive Hours (ICD-10-PCS; 2019-12-07)
DX: K72.90 Hepatic failure, unspecified without coma (principal); J96.01 Acute respiratory failure with hypoxia; G92 Toxic encephalopathy; I85.10 Secondary esophageal varices without bleeding; K92.2 Gastrointestinal hemorrhage, unspecified; E87.0 Hyperosmolality and hypernatremia; E87.2 Acidosis; K76.6 Portal hypertension; K70.30 Alcoholic cirrhosis of liver without ascites; E87.5 Hyperkalemia; B19.20 Unspecified viral hepatitis C without hepatic coma; D69.59 Other secondary thrombocytopenia; D72.829 Elevated white blood cell count, unspecified; F10.20 Alcohol dependence, uncomplicated; F41.9 Anxiety disorder, unspecified; F17.210 Nicotine dependence, cigarettes, uncomplicated; Z79.899 Other long term (current) drug therapy